=== PATIENT | male | born 1960 | race Caucasian/White ===

== ENCOUNTER → 2018-05-07 | Outpatient (CLI) | payer OTHER ==
--- NOTE | 2018-05-08 17:09 | MR ---
EXAMINATION TYPE: MR lumbar spine wo con DATE OF EXAM: 05/07/2018 COMPARISON: None HISTORY: Low back pain CONTRAST: 0 mL intravenous Gadavist. TECHNIQUE: Multiplanar, multisequence images of the lumbar spine were acquired. FINDINGS: Cord terminates at the L1 level. There is straightening of the lumbar spine in the sagitta l plane. L5-S1: There is loss of disc height to this level. Residual disc bulge has mild to moderate anterior thecal sac flattening. No AP spinal canal stenosis present. Facets are normal. There is moderate righ t and mild to moderate left foraminal stenosis due to the disc bulging. L4-L5: There is loss of disc height is level. Central focal protrusion is present with subligamentous disc extension beyond the L5 endplate. AP spinal canal stenosis is not present. There is mild to mod erate right foraminal stenosis. Mild left foraminal narrowing is present. Endplate changes are presen t compatible with Modic type II degenerative change. L3-L4: Mild loss of disc height is present. There is a small central protrusion with mild anterior th ecal sac compression. No AP spinal canal stenosis is present. Neural foramen are patent. L2-L3: Disc space narrowing is present. Mild disc bulge has mild anterior thecal sac compression. No AP spinal canal stenosis is present. Facet hypertrophy with mild ligamentum flavum laxity has posteri or lateral thecal sac contact. L1-L2: Left paracentral subligamentous disc herniation is present with mild anterior thecal sac compr ession. No AP spinal canal stenosis is present. Neural foramen are patent. T12-L1: No significant disc bulge or disc herniation. No spinal canal stenosis. No foraminal stenos is. Neural foramen are patent. Disc desiccation is present throughout the lumbar spine. IMPRESSION: 1. Small subligamentous disc herniation L1-2 with mild anterior thecal sac compression 2. Small central protrusion L3-4 with mild anterior thecal sac compression. 3. Mild disc bulge L2-3 with mild anterior thecal sac flattening. 4. Mild to moderate bilateral foraminal narrowing L4-5 L5-S1 due to disc bulging discussed above
== END | disposition home or self-care (01) ==
LOC: RADMRIMAIN 20:28
PROVIDERS: ATTEND Family Medicine
DX: M99.73 Connective tissue and disc stenosis of intervertebral foramina of lumbar region (principal); M51.16 Intervertebral disc disorders with radiculopathy, lumbar region
CPT/HCPCS: 72148

== ENCOUNTER → 2018-06-09 | Outpatient (CLI) | payer OTHER ==
[2018-06-08 15:32] VITALS: BMI 25.7
[2018-06-09 08:41] VITALS: BP 166/100; PULSE 58; RESP 16
--- NOTE | 2018-06-10 11:31 | P.PAINCN ---
History of Present Illness - Reason for Consult Consult date: 06/09/18 - History of Present Illness This is the initial consultation visit for this 57 years old male with a chronic history of severe low back pain, he reported that the pain started more than 30 years ago, the pain is constant and increases with any activity, patient had microdiscectomy surgery on his back which did not helped his low back pain. Patient was getting some relief from chiropractics, but limited benefit from, he reported that October of last year , 10 still the pain increased significantly, the pain is severe constant localized in the low back area with radiation to the buttocks bilaterally and into the hips , his right side more than the left side, he denies any motor or sensory deficit he denies any fever or night sweats. Denies any change in the bowel movement or urination. Past Medical History Additional Past Medical History / Comment(s): LOW BACK PAIN, HERNIATED DISCS. History of Any Multi-Drug Resistant Organisms: None Reported Past Surgical History: Back Surgery Additional Past Surgical History / Comment(s): LOWER BACK SURGERY (OVER 30 YRS AGO) Past Anesthesia/Blood Transfusion Reactions: No Reported Reaction Past Psychological History: Anxiety Smoking Status: Never smoker Past Alcohol Use History: None Reported Past Drug Use History: None Reported - Past Family History Mother Family Medical History: Cancer Additional Family Medical History / Comment(s): BREAST CANCER Medications and Allergies Home Medications Medication Instructions Recorded Confirmed Type Lysine [l-Lysine] 500 mg PO DAILY 06/08/18 06/09/18 History Venlafaxine HCl [Effexor XR] 225 mg PO DAILY 06/08/18 06/09/18 History clonazePAM [KlonoPIN] 1 mg PO DAILY 06/08/18 06/09/18 History Lecithin, Soy [Lecithin] 1,200 mg PO DAILY 06/09/18 06/09/18 History Allergies Allergy/AdvReac Type Severity Reaction Status Date / Time No Known Allergies Allergy Verified 06/09/18 08:21 Physical Exam Social history : not smoker , NO ETOH , NO Illegal drugs use . Review of Systems : - Constitutional : no chills , no fever , no night sweats , - Ears : no ear discharge , no change in hearing -Nose, Mouth ,Throat ; no bleeding gums, no sore throat , no epistaxis , -Cardiovascular : Denies chest pain, , no orthopnea , no pal pitation -Respiratory : Denies cough , no dyspnea , no hemoptysis -Gastrointestinal :, no change in bowel habits , no coffee- ground emesis . -Genitourinary : No hematuria , no discharge , no incontinence, -Musculoskeletal : No gait dysfunction , report low back pain , - Neurological : no ataxia , no tremor , no sezure , -Psychatric , no suicidal ideation no hallucination - Endocrine : no cold intolerence , no polyuria , no polydypsia , -Hematologic : no easy bleeding , no easy brusing , -Allergic / immunology : no angioedema , no wheezing ,no allergic rhinitis -Integumentary : no brttle nails , no change hair / nails , no foot/leg ulcers . Physical Examinations : -Constitutional : Cooperative , not in acute distress . -HEENT : nech ; supple , no Lymphadenopathy , no Thyromegaly , :eyes , no icterus, no photophobia . - Respiratory : Chest clear to auscultations Bilaterally , no wheezing . - Cardiovascular : regular rate and rhythem , S1 , S2 , no S3 , no S4. - Gastrointestinal: abdomen soft no tenderness , no organomegally . - Genitourinary : Defferred . -Integumentary : No cellulitis , no ulcers , normal skin turgor , no cyanotic . - neurologic : Cranial nerve II to XII intact , no focal neurological deffecit -psychatric : alert , oriented X 3 , appropriate affect , intact judgment and insight . -Lymphatic : no Lymphadenopathy. - musculoskeltal: abnormal gait Lumber spine moter stegnth lower extremities ,thigh and legs 5/5 Right side , 5/5 Left side deep tendon reflexes : normal Knee Jerk , normal ankle Jerk positive lumber facet Loading Test Range of motion of the lumbar spine Flexion 30 degrees, extension 10 degrees strait leg raising test , negative bilaterally Fabere test positive RT and negative LT . Results Comments: MRI of the lumbar spine= L2-3 lumbar facet arthropathy L4 5 foraminal stenosis, L5-S1 disc bulging with foraminal stenosis Assessment and Plan Plan: Assessment and plan= chronic severe low back pain secondary to multifactorial causes, lumbar degenerative disc disease lumbar foraminal stenosis and lumbar spondylosis with lumbar facet arthropathy , clinically most of the pain is coming from the facetogenic component patient could benefit from diagnostic medial branch block lumbar area L1-2/L2-3/L3 4, benefits positive then we will proceed with a radiofrequency ablation of the median branch PQRS Measure Charge Sheet Measure #130: Documentation of Current Meds in Medical Chart: Patient's medications documented in chart Measure #226: Tobacco Use: Screen & Cessation Intervention: Pt not a tobacco user Measure #111: Pneumonia Vaccination: Pneumococcal vaccine NOT administered or previously given Measure #47: Advance Care Plan: Advance care planning discussed & documented, pt chose/unable to give Measure #412: Opioid Treatment Agreement: No documentation of signed opioid treatment agreement Measure #408: Opioid Therapy Follow-up Evaluation: Patient had NO f/u eval minimum every 3 months during opioid therapy Measure #317: Preventitive Care & Scrn High Bld Press & F/U: Pre-hypertensive or hypertensive BP documented, pt will f/u with PCP Measure #128: Body Mass Index (BMI) Screening & Follow-up: BMI documented ABOVE normal parameters - f/u documented Measure #131: Pain Assessment & Follow-up: Pain positive & plan documented, Follow-up scheduled Measure #431: Unhealthy Alcohol Use Preventative Care & Scrn: Patient not identified as an unhealthy alcohol user PQRS Narrative: Smoking Status Never smoker Do You Want the Pneumonia No Vaccine AT THIS TIME? Blood Pressure 166/100 Pain Intensity [Bilateral 7 Lower Back] Scale Used Numeric (1 - 10) Hx Alcohol Use (MH) No Home Medications: Ambulatory Orders Lysine [l-Lysine] 500 mg PO DAILY 06/08/18 Venlafaxine HCl [Effexor XR] 225 mg PO DAILY 06/08/18 clonazePAM [KlonoPIN] 1 mg PO DAILY 06/08/18 Lecithin, Soy [Lecithin] 1,200 mg PO DAILY 06/09/18
== END | disposition home or self-care (01) ==
LOC: PNWHC3 08:15
PROVIDERS: ATTEND Specialist
DX: G89.29 Other chronic pain (principal); M48.061 Spinal stenosis, lumbar region without neurogenic claudication; M51.36 Other intervertebral disc degeneration, lumbar region; M47.816 Spondylosis without myelopathy or radiculopathy, lumbar region; M46.96 Unspecified inflammatory spondylopathy, lumbar region; Z98.890 Other specified postprocedural states
CPT/HCPCS: 99211

== ENCOUNTER → 2018-06-23 | Day surgery (SDC) | payer OTHER ==
[2018-06-16 12:43] VITALS: BMI 25.4
[~2018-06-23] MED LIST: IV FLUID CONTINUATION 1,000 ML IV ONE; LACTATED RINGERS 1,000 ML IV ONE; LIDOCAINE 1% 20 ML VIAL (10MG/ML) FOR IV START INTRADERMA ONE; SODIUM CHLORIDE 0.9% 500 ML 500 ML IV SCH
[2018-06-23 09:37] VITALS: TEMP 97.9
--- NOTE | 2018-06-23 10:39 | P.PCN ---
Date of Procedure: 06/23/18 Surgeon: Kim Narayan Pathology: none sent Condition: stable Disposition: PACU Description of Procedure: PREOPERATIVE DIAGNOSIS : 1- Lumbar spondylosis with Facet Arthropathy without myelopathy . 2- Lumber degenerative disc disease POSTOPERATIVE DIAGNOSIS: 1- Lumbar spondylosis with Facet Arthropathy without myelopathy . 2- Lumber degenerative disc disease PROCEDURE: Diagnostic bilateral L3 -4 , L4 -5 , and L5-S1 medial branch block under fluoroscopy ANESTHESIA: Local with 1% lidocaine; IV moderate conscious sedation with Versed 2 mg . EBL: Negligible COMPLICATION: None. PROCEDURE INDICATION: Chronic low back pain secondary to Facet arthropathy unresponsive to conservative treatment. PROCEDURE DESCRIPTION: the patient was seen and identified in the preop holding area , risks and benefits and possible complications of the procedure and alternatives were discussed with the patient, and the patient agreed to proceed with the procedure and signed the consent. IV was started and vital signs monitored during the procedure and fluoroscopy was used to maximize the benefit and accuracy of the needle placement, sedation was given to decrease patient anxiety, patient was taken to the procedure room and placed in prone position vital signs monitored. The patient's pain is mostly in the lower back area which corresponds with the lower levels of the facet joints .The patient was brought into the procedure room and placed in prone position. Skin was prepped with Chloraprep and draped in a sterile manner. Lidocaine 1% was used to numb the skin up at the target points that were chosen as follows: at the L5-S1 level which corresponds to the dorsal ramus of L5 the target points were at the superior medial aspect of the sacral ala on each side of the spine on the AP view of fluoroscopy, and for the L3 and L4 medial branches the target points were the connection between the transverse process and the superior to go process of L4 and L5 respectively on the oblique views of fluoroscopy. I used 22-gauge 3-1/2 inch Quincke spinal needles for this procedure and after contacting bone at the target points mentioned above I injected 1 mL of a mixture of Kenalog 40 mg +5 MLS of Marcaine 0.5% PF . Patient tolerated procedure well. At the end of the procedure the needles removed and a bandage applied after the skin was cleaned the cleaning solution. patient was then taken to the recovery room in stable condition and monitored in the recovery room for 20-30 minutes and discharged home in stable condition after discharge criteria met .
[2018-06-23 11:01] VITALS: BP 154/98; PULSE 85; RESP 16
--- NOTE | 2018-06-23 11:45 | FL ---
EXAMINATION TYPE: FL guided pain mgmt statistic DATE OF EXAM: 06/23/2018 FLUOROSCOPY Fluoroscopy time of 10 seconds was used during bilateral lumbar facet block and steroid injection. 4 image/s document/s the procedure.
== END ==
LOC: ORPAIN 09:11
PROVIDERS: ATTEND Anesthesiology
DX: G89.29 Other chronic pain (principal); M47.816 Spondylosis without myelopathy or radiculopathy, lumbar region
CPT/HCPCS: 64493; 64494; 64495; J2250; J3301

== ENCOUNTER 2018-07-07 09:12 | Day surgery (SDC) | payer OTHER ==
[2018-07-02 09:54] VITALS: BMI 25.4
[~2018-07-07 09:12] MED LIST changes: -IV FLUID CONTINUATION 1,000 ML IV ONE; -LACTATED RINGERS 1,000 ML IV ONE; +LACTATED RINGERS 1,000 ML IV SCH; -LIDOCAINE 1% 20 ML VIAL (10MG/ML) FOR IV START INTRADERMA ONE; -SODIUM CHLORIDE 0.9% 500 ML 500 ML IV SCH
[2018-07-07 09:52] VITALS: RESP 16; TEMP 97.2
--- NOTE | 2018-07-07 10:30 | P.PCN ---
Date of Procedure: 07/07/18 Surgeon: Kim Narayan Pathology: none sent Condition: stable Disposition: PACU Description of Procedure: PREOPERATIVE DIAGNOSIS : 1- Lumbar spondylosis with Facet Arthropathy without myelopathy . 2- Lumber degenerative disc disease POSTOPERATIVE DIAGNOSIS: 1- Lumbar spondylosis with Facet Arthropathy without myelopathy . 2- Lumber degenerative disc disease PROCEDURE: Diagnostic bilateral L3 -4 , L4 -5 , and L5-S1 medial branch block under fluoroscopy ANESTHESIA: Local with 1% lidocaine; IV moderate conscious sedation with Versed 2 mg . EBL: Negligible COMPLICATION: None. PROCEDURE INDICATION: Chronic low back pain secondary to Facet arthropathy unresponsive to conservative treatment. PROCEDURE DESCRIPTION: the patient was seen and identified in the preop holding area , risks and benefits and possible complications of the procedure and alternatives were discussed with the patient, and the patient agreed to proceed with the procedure and signed the consent. IV was started and vital signs monitored during the procedure and fluoroscopy was used to maximize the benefit and accuracy of the needle placement, sedation was given to decrease patient anxiety, patient was taken to the procedure room and placed in prone position vital signs monitored. The patient's pain is mostly in the lower back area which corresponds with the lower levels of the facet joints .The patient was brought into the procedure room and placed in prone position. Skin was prepped with Chloraprep and draped in a sterile manner. Lidocaine 1% was used to numb the skin up at the target points that were chosen as follows: at the L5-S1 level which corresponds to the dorsal ramus of L5 the target points were at the superior medial aspect of the sacral ala on each side of the spine on the AP view of fluoroscopy, and for the L3 and L4 medial branches the target points were the connection between the transverse process and the superior to go process of L4 and L5 respectively on the oblique views of fluoroscopy. I used 22-gauge 3-1/2 inch Quincke spinal needles for this procedure and after contacting bone at the target points mentioned above I injected 1 mL of a mixture of Kenalog 40 mg +5 MLS of Marcaine 0.5% PF . Patient tolerated procedure well. At the end of the procedure the needles removed and a bandage applied after the skin was cleaned the cleaning solution. patient was then taken to the recovery room in stable condition and monitored in the recovery room for 20-30 minutes and discharged home in stable condition after discharge criteria met .
[2018-07-07] MEDS ORDERED: IV FLUID CONTINUATION 1,000 ML IV ONE ×2 (10:36)
[2018-07-07 10:56] VITALS: BP 156/90; PULSE 69
--- NOTE | 2018-07-07 11:20 | FL ---
EXAMINATION TYPE: FL guided pain mgmt statistic DATE OF EXAM: 07/07/2018 CLINICAL HISTORY: Bilateral facet block for back pain TECHNIQUE: Fluoroscopy. COMPARISON: None. FINDINGS: Fluoroscopic guidance was provided during procedure performed by Dr. Narayan. A total of 9 seconds of fluoroscopic time was utilized during the procedure and 3 spot images was acquired demon strating localization of the lumbar spine multiple levels. IMPRESSION: As Above.
== END 2018-07-07 11:06 | disposition home or self-care (01) ==
LOC: ORPAIN 09:12
PROVIDERS: ATTEND Anesthesiology
DX: M51.36 Other intervertebral disc degeneration, lumbar region (principal); M48.061 Spinal stenosis, lumbar region without neurogenic claudication; M47.816 Spondylosis without myelopathy or radiculopathy, lumbar region; G89.29 Other chronic pain; F41.9 Anxiety disorder, unspecified; Z79.899 Other long term (current) drug therapy
CPT/HCPCS: 64493; 64494; 64495; J2250; J3301; J3010; 99152

== ENCOUNTER → 2018-07-22 | Outpatient (CLI) | payer OTHER ==
[2018-07-22 12:05] VITALS: BP 160/101; PULSE 84; RESP 16
--- NOTE | 2018-07-22 12:23 | P.PAINPG ---
Subjective Progress Note Date: 07/22/18 This is a follow-up visit for this 57-year-old old male with a chronic history of severe low back pain, he is diagnosed with lumbar degenerative disc disease and lumbar spondylosis with lumbar facet arthropathy, recently we have done diagnostic medial branch block lumbar area at L3 4, L4 5, and L5-S1 x2 , patient reported that his pain was 7/10 before each block , and it dropped to 0/10 after each block, and he is looking forward to have radiofrequency ablation of the medial branch lumbar area, he denies any motor or sensory deficit, he denies any fever or night sweats, and no change in the bowel movement or urination Objective - Vital Signs Vital signs: Vital Signs Temp Pulse 84 07/22/18 11:54 Resp 16 07/22/18 11:54 BP 160/101 07/22/18 11:54 Pulse Ox 97 07/22/18 11:54 Intake & Output 07/21/18 07/22/18 07/22/18 18:59 06:59 18:59 Weight 86.183 kg - Exam Physical Examinations : -Constitutiona : Cooperative , not in acute distress . -HEENT : nech ; supple , no Lymphadenopathy , normal thyroid size . eyes : no ptosis , no icterus, no photophobia . Lumbar spine moter stegnth lower extremities ,thigh and legs 5/5 Right side , 5/5 Left side deep tendon reflexes : normal Knee Jerk , normal ankle Jerk positive lumber facet Loading Test Range of motion of the lumbar spine Flexion 30 degrees, extension 10 degrees Assessment and Plan Plan: Assessment and plan= chronic low back pain secondary to lumbar degenerative disc disease , lumbar spondylosis with lumbar facet arthropathy . Patient had positive results after the diagnostic medial branch block lumbar area. He will be scheduled to have radiofrequency ablation of the medial branch lumbar area L34, L45 ,L5S1 redo the right side first and left-sided later Time with Patient: Less than 30 PQRS Measure Charge Sheet Measure #130: Documentation of Current Meds in Medical Chart: Patient's medications documented in chart Measure #226: Tobacco Use: Screen & Cessation Intervention: Pt not a tobacco user Measure #111: Pneumonia Vaccination: Pneumococcal vaccine NOT administered or previously given Measure #47: Advance Care Plan: Advance care planning discussed & documented, pt chose/unable to give Measure #412: Opioid Treatment Agreement: No documentation of signed opioid treatment agreement Measure #408: Opioid Therapy Follow-up Evaluation: Patient had NO f/u eval minimum every 3 months during opioid therapy Measure #317: Preventitive Care & Scrn High Bld Press & F/U: Pre-hypertensive or hypertensive BP documented, pt will f/u with PCP Measure #128: Body Mass Index (BMI) Screening & Follow-up: BMI documented within normal parameters Measure #131: Pain Assessment & Follow-up: Pain positive & plan documented, Follow-up scheduled Measure #431: Unhealthy Alcohol Use Preventative Care & Scrn: Patient not identified as an unhealthy alcohol user PQRS Narrative: Smoking Status Never smoker Do You Want the Pneumonia No Vaccine AT THIS TIME? Blood Pressure 160/101 Pain Intensity [Bilateral 4 Lower Back] Scale Used Numeric (1 - 10) Hx Alcohol Use (MH) No Home Medications: Ambulatory Orders Lysine [l-Lysine] 500 mg PO DAILY 06/08/18 Venlafaxine HCl [Effexor XR] 225 mg PO QAM 06/08/18 clonazePAM [KlonoPIN] 1 mg PO QAM 06/08/18 Lecithin, Soy [Lecithin] 1,200 mg PO DAILY 06/09/18 Controlled Substance Measures - Controlled Substance Measures Is patient prescribed a controlled substance at discharge?: No
== END | disposition home or self-care (01) ==
LOC: PNWHC3 11:27
PROVIDERS: ATTEND Specialist
DX: G89.29 Other chronic pain (principal); M51.36 Other intervertebral disc degeneration, lumbar region; M47.816 Spondylosis without myelopathy or radiculopathy, lumbar region; M46.86 Other specified inflammatory spondylopathies, lumbar region; Z79.899 Other long term (current) drug therapy
CPT/HCPCS: 99211

== ENCOUNTER 2018-08-02 07:56 | Day surgery (SDC) | payer OTHER ==
[2018-07-28 16:10] VITALS: BMI 25.0
[2018-08-02 08:39] VITALS: TEMP 97.7
[2018-08-02] MEDS ORDERED: LIDOCAINE 1% 20 ML VIAL (10MG/ML) FOR IV START INTRADERMA ONE (08:48)
--- NOTE | 2018-08-02 09:42 | P.PCN ---
Date of Procedure: 08/02/18 Procedure(s) Performed: PREOPERATIVE DIAGNOSIS: 1-Lumbar Spondylosis with Facet Arthropathy without myelopathy. 2- Lumber degenerative disc disease. POSTOPERATIVE DIAGNOSIS: 1- Lumbar Spondylosis with Facet Arthropathy without myelopathy. 2- Lumber degenerative disc disease. PROCEDURES : Right Radiofrequency thermocoagulation, L3-L4, L4-L5, and L5-S1 medial branch, with fluoroscopic guidance ANESTHESIA: Moderate sedation with intravenous versed 2 mg and fentaneyl 50 mcg, and local infiltration with Ropivacaine 0.5 % . EBL: Minimal PROCEDURE INDICATION: The patient with low back pain secondary to lumbar facet arthropathy who had more than 50% relief of her pain with previous diagnostic lumbar medial branch block with bupivacaine. PROCEDURE DESCRIPTION / TECHNIQUE: The patient was seen and identified in the preoperative area. Risks, benefits, complications, including but not limited to risk of infection ,bleeding , allergic reactions to the medications and no complete pain releife , and alternatives were discussed with the patient, the patient agreed to proceed with the procedure and signed the consent. IV was started. Vital signs remained stable throughout the procedure. Patient was taken to the OR and time out was completed. The patient was placed i n the prone position on the procedure table. The lumber area was prepped and draped in the usual sterile fashion. . Vital signs were closely monitored during the procedure .IV sedation was used during the procedure to decrease patients anxiety. Using AP and then oblique fluoroscopy, the ``eye of the Keon dog corresponding to the connection between the superior and transverse articular processes of right L3, L4, and L5 were identified, marked, and localized with 1% lidocaine. Subsequently, a 18 -kf radiofrequency cannula with a 10- mm active tip was advanced guided by fluoroscopy to each of the``eyes of the Keon dog at right L3, L4, and L5. Each site then underwent sensory testing at 50 Hz and 0 to 1 volt and motor testing at 2.5 Hz and 0 to 3 volt with local stimulation, but no radicular symptoms down the legs. Thereafter the right L3-4, L4-5, and L5-S1 sites underwent radiofrequency thermocoagulation at 80 degrees celsius for 90 seconds after injecting 0.5 ml of PF Ropivacaine 1ml, then after the thermocoagulation done , 1 ml of the block solution containing Depo-Medrol 40 mg and 3 ml of Ropivacaine 0.5% was injected at the right L3-4 , L4-5 , and L5-S1, levels after negative aspiration of CSF and blood and with no paresthesias. Cannulas were retracted while injecting lidocaine 1% until the needle is out. At the end of the procedure, the skin was cleansed and bandages were applied. COMPLICATIONS: No acute complications. DISPOSITION / PLANS: The patient was placed in a supine position and transferred to the recovery area in a stable condition for observation and was discharged from the recovery room after meeting discharge criteria. Home discharge instructions given to the patient by the staff. The patient was reexamined prior to discharge. The patient will schedule a follow up in the clinic in 2-4 weeks.
[2018-08-02] MEDS ORDERED: IV FLUID CONTINUATION 800 ML IV ONE (09:47)
[2018-08-02 09:50] VITALS: RESP 18
--- NOTE | 2018-08-02 09:58 | FL ---
EXAMINATION TYPE: FL guided pain mgmt statistic DATE OF EXAM: 08/02/2018 HISTORY: Pain 11sec fluoro time,3 images scanned
[2018-08-02 10:15] VITALS: BP 155/103
[2018-08-02 10:16] VITALS: PULSE 73
== END 2018-08-02 10:20 | disposition home or self-care (01) ==
LOC: ORPAIN 07:56
PROVIDERS: ATTEND Specialist
DX: M47.816 Spondylosis without myelopathy or radiculopathy, lumbar region (principal); M51.36 Other intervertebral disc degeneration, lumbar region
CPT/HCPCS: 64635; 64636 ×2; J2250; J1030; J3010; 99152

== ENCOUNTER 2018-08-16 09:15 | Day surgery (SDC) | payer OTHER ==
[2018-08-11 12:46] VITALS: BMI 25.0
[2018-08-16 10:01] VITALS: RESP 16; TEMP 97.2
[2018-08-16] MEDS ORDERED: LIDOCAINE 1% 20 ML VIAL (10MG/ML) FOR IV START INTRADERMA ONE (10:01)
--- NOTE | 2018-08-16 10:59 | P.PCN ---
Date of Procedure: 08/16/18 Procedure(s) Performed: PREOPERATIVE DIAGNOSIS: 1-Lumbar Spondylosis with Facet Arthropathy without myelopathy. 2- Lumber degenerative disc disease. POSTOPERATIVE DIAGNOSIS: 1- Lumbar Spondylosis with Facet Arthropathy without myelopathy. 2- Lumber degenerative disc disease. PROCEDURES : Left Radiofrequency thermocoagulation, L3-L4, L4-L5, and L5-S1 medial branch, with fluoroscopic guidance ANESTHESIA: Moderate sedation with intravenous versed 1 mg and fentaneyl 50 mcg, and local infiltration with Ropivacaine 0.5 % . EBL: Minimal PROCEDURE INDICATION: The patient with low back pain secondary to lumbar facet arthropathy who had more than 50% relief of her pain with previous diagnostic lumbar medial branch block with bupivacaine. PROCEDURE DESCRIPTION / TECHNIQUE: The patient was seen and identified in the preoperative area. Risks, benefits, complications, including but not limited to risk of infection ,bleeding , allergic reactions to the medications and no complete pain releife , and alternatives were discussed with the patient, the patient agreed to proceed with the procedure and signed the consent. IV was started. Vital signs remained stable throughout the procedure. Patient was taken to the OR and time out was completed. The patient was placed i n the prone position on the procedure table. The lumber area was prepped and draped in the usual sterile fashion. . Vital signs were closely monitored during the procedure .IV sedation was used during the procedure to decrease patients anxiety. Using AP and then oblique fluoroscopy, the ``eye of the Keon dog corresponding to the connection between the superior and transverse articular processes of Left L3, L4, and L5 were identified, marked, and localized with 1% lidocaine. Subsequently, a 18 [id number] radiofrequency cannula with a 10-mm active tip was advanced guided by fluoroscopy to each of the``eyes of the Keon dog at Left L3, L4, and L5. Each site then underwent sensory testing at 50 Hz and 0 to 1 volt and motor testing at 2.5 Hz and 0 to 3 volt with local stimulation, but no radicular symptoms down the legs. Thereafter the Left L3-4, L4-5, and L5-S1 sites underwent radiofrequency thermocoagulation at 80 degrees celsius for 90 seconds after injecting 0.5 ml of PF Ropivacaine 1ml, then after the thermocoagulation done , 1 ml of the block solution containing Depo-Medrol 40 mg and 3 ml of Ropivacaine 0.5% was injected at the Left L3-4 , L4-5 , and L5-S1, levels after negative aspiration of CSF and blood and with no paresthesias. Cannulas were retracted while injecting lidocaine 1% until the needle is out. At the end of the procedure, the skin was cleansed and bandages were applied. COMPLICATIONS: No acute complications. DISPOSITION / PLANS: The patient was placed in a supine position and transferred to the recovery area in a stable condition for observation and was discharged from the recovery room after meeting discharge criteria. Home discharge instructions given to the patient by the staff. The patient was reexamined prior to discharge. The patient will schedule a follow up in the clinic in 2-4 weeks.
--- NOTE | 2018-08-16 11:09 | FL ---
EXAMINATION TYPE: FL guided pain mgmt statistic DATE OF EXAM: 08/16/2018 HISTORY: Flouroscopy time 12 seconds of fluoroscopy provided. IMPRESSION: 1. Fluoroscopy time.
[2018-08-16 11:19] VITALS: BP 139/95; PULSE 73
[2018-08-16] MEDS ORDERED: IV FLUID CONTINUATION 1,000 ML IV ONE (11:21)
== END 2018-08-16 11:21 | disposition home or self-care (01) ==
LOC: ORPAIN 09:15
PROVIDERS: ATTEND Specialist
DX: M47.816 Spondylosis without myelopathy or radiculopathy, lumbar region (principal); M51.36 Other intervertebral disc degeneration, lumbar region
CPT/HCPCS: 64635; 64636 ×2; J2250; J1030; J3010; 99152

== ENCOUNTER → 2018-09-02 | Outpatient (CLI) | payer OTHER ==
[2018-09-02 14:11] VITALS: BP 136/91; PULSE 75; RESP 18
--- NOTE | 2018-09-02 15:04 | P.PN ---
Subjective Progress Note Date: 09/02/18 Sid is a 50-year-old gentleman presenting today for follow-up. He is status post radiofrequency ablation of the lumbar spine on both sides. He reports a left side is completely better. He also has pain on the right side of his low back and 1 point tender area where he feels is not improved. He sometimes feels that he has radicular symptoms down his leg associated with a burning painful sensation down to the heel of his foot. He feels that this pain is an area that is bothering him despite having the ablation. He reports he is very happy with the ablation this far but this part still bothering him and he like a resolution. He also complains of a pain in the right upper mid back associated with right arm pain. He's had a history of right arm pain which radiates from his elbow into his hand along the dorsal aspect. Pain is in the radial nerve distribution. He reports that history this pain was improved after having a couple injections in the elbow about 7 years ago. He has not been exercising because he was worried about hurting himself after the ablation but traditionally works out on a regular basis. Objective - Vital Signs Vital signs: Vital Signs Temp Pulse 75 09/02/18 13:57 Resp 18 09/02/18 13:57 BP 136/91 09/02/18 13:57 Pulse Ox 99 09/02/18 13:57 Intake & Output 09/01/18 09/02/18 09/02/18 18:59 06:59 18:59 Weight 84.822 kg - Exam General: Awake and alert oriented 3 no distress Respiratory exam: No audible wheezing no accessory muscle usage Cardiovascular exam: regular rate, palpable bilateral pulses, no lower extremity edema Abdominal exam: No distention nontender to palpation Cervical spine: Normal alignment, Spurling's negative, facet loading negative, Telegraph Lineman strength is 5/5, carr negative Right arm: Patient has tenderness palpation over the brachial radialis and pronator muscles. There is positive to no sign over the radial nerve. Wrist flexor and wrist extensor muscles are normal in do not elicit pain over the medial or lateral compartments. Lumbar spine: Loss of lumbar lordosis, normal alignment, tender to palpation over bilateral paraspinal muscles, facet loading is positive on the right side. Straight leg raise is positive on the right side. He has point tenderness over the lumbar spine. His gluteal muscles are atrophied bilaterally. Paraspinal muscles have good muscle bulk. There is no weakness in the lumbar hip flexors. Quadriceps and hamstring strength is adequate. Sacroiliac joints: Nontender to palpation, WILEY is negative, Gaenselon negative Neuro exam: Normal sensation in bilateral upper extremities, deep tendon reflexes are 2+ bilateral upper extremities. His right patellar reflex is 1+ compared to 2+ on the left. Achilles reflexes 2+ bilateral. 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 He would like to move forward with lumbar epidural steroid injection at the L4-L5 level and see if that improves that pain going down the leg as well as the pain in the right side of his low back. Also discussed potentially performing a repeat of the radiofrequency ablation at that one level where he is having pain seems that improves his pain. I've also discussed with him specific exercises to increase his gluteal muscle strength as well as his upper back rhomboid muscle bulk. We will also discussed that we may potentially do a radial nerve injection at the elbow at some point in the future I like to hold off on that due to the steroid load. I've encouraged him to go back to exercising on a regular basis and avoid only activity that causes severe pain
== END ==
LOC: PNWHC3 13:37
PROVIDERS: ATTEND Hospitalist
DX: M47.26 Other spondylosis with radiculopathy, lumbar region (principal); M25.821 Other specified joint disorders, right elbow; Z79.891 Long term (current) use of opiate analgesic
CPT/HCPCS: 99211

== ENCOUNTER 2018-09-08 08:49 | Day surgery (SDC) | payer OTHER ==
[2018-09-07 08:46] VITALS: BMI 25.0
[2018-09-08 09:05] VITALS: TEMP 97.7
--- NOTE | 2018-09-08 09:24 | P.PCN ---
Date of Procedure: 09/08/18 Surgeon: Kim Narayan Pathology: none sent Condition: stable Disposition: PACU Description of Procedure: PREOPERATIVE DIAGNOSIS: 1-Lumbar radiculopathy 2- Lumber Degenerative Disc Diseases. POSTOPERATIVE DIAGNOSIS: 1-Lumbar radiculopathy. 2-Lumbar Degenerative Disc Diseases PROCEDURE 1. Lumbar epidural steroid injection under fluoroscopic guidance at the L5-S1 level in the right paramedian approach 2. Lumbar epidurogram. ANESTHESIA: Local with 1% lidocaine; and IV moderate conscious sedation with Versed and fentanyl EBL: Minimal PROCEDURE INDICATION: The patient with low back pain and radiculitis symptoms unresponsive to conservative treatment. Fluoroscopy was used to optimize visualization of the needle placement and to maximize safety. PROCEDURE DESCRIPTION / TECHNIQUE: The patient was seen and identified in the preoperative area. Risks, benefits, complications including but not limited to infections ,bleeding ,allergic reaction to the medications ,nerve damage and not complete pain relief , and alternatives were discussed with the patient. The patient agreed to proceed with the procedure and signed the consent. IV was started, and vital signs were stable. Patient was taken to the OR and time out was completed. The patient was placed in the prone position on procedure table and a pillow was placed under the abdomen to reduce lumbar lordosis. The lumbosacral area was prepped and draped in the usual sterile fashion with ChloraPrep.Patient was closely monitored during the procedure. Conscious sedation was used during the procedure to decrease patients anxiety. Vital signs were monitered during the entire procedure. Using anterior-posterior fluoroscopy, the 5-S1 interlaminar space was identified and the skin over this site was marked and then infiltrated with 1% lidocaine subcutaneously. Subsequently, a 20-gauge Tuohy epidural needle was inserted and advanced toward the epidural space using the Loss of resistance to air technique and guided by AP and lateral fluoroscopy. The correct needle position in the epidural space was verified with the injection of 1 mL of the water soluble contrast dye Omnipaque 180 contrast and observing an excellent epidurogram with the epidural spread of the dye, after negative aspiration for blood and CSF and in the absence of paresthesias. Again after negative aspiration, a 8 ml mixture containing 80 mg of Kenalog and 5 ml of preservative free Normal Saline, and 2 ml of preservative free ropivacaine 0.5% solution was injected and a washout of epidurogram was seen. Needle was withdrawn intact, skin was cleansed, and bandages were applied. patient tolerated procedure well and was transferred to PACU in stable condition. COMPLICATIONS: None
[2018-09-08] MEDS ORDERED: IV FLUID CONTINUATION 1,000 ML IV ONE ×2 (09:31)
[2018-09-08 09:44] VITALS: RESP 18
[2018-09-08 09:58] VITALS: BP 133/72; PULSE 72
--- NOTE | 2018-09-08 12:11 | FL ---
EXAMINATION TYPE: FL guided pain mgmt statistic DATE OF EXAM: 09/08/2018 CLINICAL HISTORY: Low back pain. TECHNIQUE: Fluoroscopy. COMPARISON: None. FINDINGS: Fluoroscopic guidance was provided during pain relief procedure performed by Dr. Narayan . A total of 2 seconds of fluoroscopic time was utilized during the procedure and 1 spot images are a cquired. Images acquired shows needle localization of the lumbosacral junction. IMPRESSION: As Above.
== END 2018-09-08 10:01 | disposition home or self-care (01) ==
LOC: ORPAIN 08:49
PROVIDERS: ATTEND Anesthesiology
DX: M51.16 Intervertebral disc disorders with radiculopathy, lumbar region (principal)
CPT/HCPCS: 62323

== ENCOUNTER → 2018-10-12 | Outpatient (CLI) | payer OTHER ==
[2018-10-12 13:55] VITALS: BP 121/78; PULSE 77; RESP 16
--- NOTE | 2018-10-12 15:19 | P.PAINPG ---
Subjective Progress Note Date: 10/12/18 Sid is a 58-year-old gentleman presenting today for follow-up. He is status post L5-S1 epidural steroid injections done on 09/08/2018 and 10-15. He reports that his pain is 70% improved from prior to injections. He is able to function more following these injections. He reports that his pain level is down to about 3-4 on 10. Review of systems is negative for new numbness, weakness, tingling, bowel or bladder incontinence, fevers, chills, night sweats, chest pain, shortness of breath, stroke like symptoms. Objective - Vital Signs Vital signs: Reviewed in EMR - Exam GENERAL: Well appearing, in no acute distress PSYCH: Mood and affect is appropriate. Awake, alert, and oriented SKIN: Skin color, texture, turgor normal, no rashes or lesions HEENT: Normocephalic, atraumatic. EOM intact CV: No pedal edema RESP: Respirations are unlabored, no audible wheezing GI: Abdomen non-distended MUSCULOSKELETAL: Bilateral upper and lower extremity strength is normal and symmetric. No atrophy or tone abnormalities are noted. Lumbar spine: Straight leg raising in the sitting position is negative for radicular pain. No pain to palpation over the lumbar spine and paraspinous muscles. Negative for pain with facet loading and back extension/rotation. Normal range of motion without pain reproduction Buttocks: No pain to palpation over the PSIS, sacroiliac joint maneuvers are negative for pain. Extremities: Peripheral joint ROM is full and pain free without obvious instability or laxity in all four extremities. No edema or skin discolorations noted. Gait: Gait is normal NEUR: Bilateral lower extremity coordination and muscle stretch reflexes are physiologic and symmetric. Negative clonus bilaterally. No loss of sensation is noted. Assessment and Plan Assessment: #1 lumbar spondylosis without myelopathy #2 lumbar radiculopathy Plan: Patient reports 70% benefit from epidural steroid injections. At this point, no need for further procedures. Patient was instructed to continue home exercise program focusing on lumbar strengthening, stretching, core strengthening. A printout of exercises was provided to the patient. Patient was instructed to take Tylenol 500-1,000 mg up to 3 times a day when necessary, he was instructed to take 1 dose 30 minutes prior to any scheduled rigorous activity. Follow-up: When necessary Objective - Vital Signs Vital signs: Vital Signs Temp Pulse 77 10/12/18 13:30 Resp 16 10/12/18 13:30 BP 121/78 10/12/18 13:30 Pulse Ox 100 10/12/18 13:30 Intake & Output 10/11/18 10/12/18 10/12/18 18:59 06:59 18:59 Weight 83.915 kg PQRS Measure Charge Sheet Measure #130: Documentation of Current Meds in Medical Chart: Patient's medications documented in chart Measure #226: Tobacco Use: Screen & Cessation Intervention: Pt not a tobacco user Measure #111: Pneumonia Vaccination: Pneumococcal vaccine NOT administered or previously given Measure #47: Advance Care Plan: Advance care planning discussed & documented, pt chose/unable to give Measure #412: Opioid Treatment Agreement: No documentation of signed opioid treatment agreement Measure #317: Preventitive Care & Scrn High Bld Press & F/U: Normal blood pressure, f/u not required Measure #128: Body Mass Index (BMI) Screening & Follow-up: BMI documented within normal parameters Measure #131: Pain Assessment & Follow-up: Pain positive & plan documented, Follow-up PRN Measure #431: Unhealthy Alcohol Use Preventative Care & Scrn: Patient not identified as an unhealthy alcohol user PQRS Narrative: Smoking Status Never smoker Blood Pressure 121/78 Pain Intensity [Bilateral 2 Lower Back] Scale Used Numeric (1 - 10) Hx Alcohol Use (MH) No Home Medications: Ambulatory Orders Lysine [l-Lysine] 500 mg PO DAILY 06/08/18 Venlafaxine HCl [Effexor XR] 225 mg PO QAM 06/08/18 clonazePAM [KlonoPIN] 1 mg PO QAM 06/08/18 Lecithin, Soy [Lecithin] 1,200 mg PO DAILY 06/09/18 Lisinopril [Zestril] 5 mg PO DAILY 08/16/18 Controlled Substance Measures - Controlled Substance Measures Is patient prescribed a controlled substance at discharge?: No
== END | disposition home or self-care (01) ==
LOC: PNWHC3 13:05
PROVIDERS: ATTEND Anesthesiology
DX: M47.22 Other spondylosis with radiculopathy, cervical region (principal); Z79.899 Other long term (current) drug therapy
CPT/HCPCS: 99211

== ENCOUNTER → 2018-10-28 | Outpatient (CLI) | payer OTHER ==
--- NOTE | 2018-10-28 11:54 | P.PN ---
Subjective Progress Note Date: 10/28/18 This is a 58-year-old gentleman with history of lower back pain with radiation to the lower extremities. The patient had lumbar medial branch RFA on both sides previously and lately and he received 2 epidural steroid injection which helped his legs pain significantly. The patient used to have more pain in the right leg than the left one but recently he injured his back again at work and his pain is more now than the left leg than the right one. The pain starts in the lower back area and radiates all the way down to the left heel however he denies any numbness or tingling in the left leg and also he denies any leg weakness or bowel or bladder dysfunction. The patient has been using Tylenol for his pain. The pain continued to be severe for about one week but it started to get better yesterday. Today, pt denies new-onset weakness, bowel/bladder incontinence, or any other signs or symptoms of cauda equina syndrome. There are no signs of acute intoxication, and no indications of medication diversion or overuse. In addition to above, 13-point review of systems is also negative for chest pain, shortness of breath, changes in vision, changes in hearing, new onset weakness, abdominal pain, diarrhea, extreme fatigue, malaise, fever, skin changes, homicidal or suicidal ideation, or bowel or bladder incontinence. Vital Signs: Reviewed in EMR Gen: AAOx3, NAD HEENT: PERRLA,hearing grossly normal Pulm: resp unlabored,CTA Heart:S1,S2, No Mur Neck: supple, trachea midline Neuro exam of the lower extremities: Decreased left knee reflex compared to the right one and absent ankle reflexes bilaterally. Normal muscle strength bilaterally. Straight leg raising test: Negative bilaterally Freddie's test: Range of motion of the lumbar spine: Facet loading test: Tenderness in the paravertebral musculature: Neuro: CN II-XII grossly intact, Imaging: Reviewed in EMR/chart Assessment: Lumbar spondylosis without myelopathy Lumbar radiculopathy due to disc herniation Plan: 1. Explanation: Opioid and psychological risk scores were reviewed. Diagnoses, prognoses, and multiple treatment options including but not limited to physical therapy, interventional therapies, adjuvant medical therapies, narcotic medication therapies, and surgery were discussed with the patient and all questions were answered to the patient's satisfaction. 2. Opioid agreement: Opioids are not prescribed 3. Counseling: The patient was counseled extensively on SMOKING CESSATION, BODY MASS INDEX, EXERCISE. Specifically, the patient was instructed regarding the importance of smoking cessation, obesity, and exercise in the context of both chronic pain and overall health. 4. Procedures: Scheduled for the third and last lumbar epidural steroid injection at the L4 5 level on the left paramedian approach under fluoroscopic guidance 5. Consultations: None 6. Investigations: None 7. Medications: None 8. Disposition: Return to the above-mentioned procedure as soon as possible 9. Maps were reviewed and were appropriate. PQRS measures: 1-Patient's medications are documented in the chart. 2-Tobacco use is negative, counseling given 3-Patient has not had a pneumococcal vaccine. 4-Advanced care planning discussed, patient unable to give 5-Opioid contract signed with the patient. 6-Pain positive, follow-up visit or procedure scheduled 7-Patient's blood pressure measured and documented within normal limits. The patient will follow up with his primary care physician. 8-Patient's weight was measured, and body mass index ABOVE the normal limits, and counseling was done. Patient instructed to follow up with PCP. 9-Patient WAS NOT identified as an unhealthy alcohol user. C Objective - Vital Signs Vital signs: Vital Signs Temp Pulse 74 10/28/18 11:30 Resp 16 10/28/18 11:30 BP 103/71 10/28/18 11:30 Pulse Ox Intake & Output 10/27/18 10/28/18 10/28/18 18:59 06:59 18:59 Weight 83.915 kg
== END | disposition home or self-care (01) ==
CPT/HCPCS: 99211

== ENCOUNTER 2018-11-08 07:28 | Day surgery (SDC) | payer OTHER ==
[2018-11-05 11:48] VITALS: BMI 24.4
[2018-11-08 07:57] VITALS: RESP 18; TEMP 97.5
[2018-11-08] MEDS ORDERED: LIDOCAINE 1% 20 ML VIAL (10MG/ML) FOR IV START INTRADERMA ONE (08:06)
--- NOTE | 2018-11-08 09:05 | P.PCN ---
Date of Procedure: 11/08/18 Procedure(s) Performed: PREOPERATIVE DIAGNOSIS: 1- Lumbar radiculopathy, Lumbar Degenerative Disc Diseases 2-Lumbar spondylosis with Facet arthropathy without myelopathy POSTOPERATIVE DIAGNOSIS: 1-Lumber Degenerative Disc Diseases 2-Lumbar spondylosis with Facet arthropathy without myelopathy PROCEDURE 1. Lumbar epidural steroid injection under fluoroscopic guidance at the L4-5 level using a left paramedian approach 2. Lumbar epidurogram. ANESTHESIA: Local with 1% lidocaine 3 ml, moderate sedation with intravenous Versed and fentanyl Fluoroscopy was used for the procedure and images were saved in the radiology portion of the chart. EBL: Minimal PROCEDURE INDICATION: The patient with low back pain and radiculitis symptoms unresponsive to conservative treatment. Fluoroscopy was used to optimize visualization of the needle placement and to maximize safety. PROCEDURE DESCRIPTION / TECHNIQUE: The patient was seen and identified in the preoperative area. Risks, benefits, complications including but not limited to infections ,bleeding ,allergic reaction to the medications ,nerve damage and incomplete pain releif , and alternatives were discussed with the patient. The patient agreed to proceed with the procedure and signed the consent. IV was started, and vital signs were stable. Patient was taken to the OR and time out was completed. The patient was placed in the prone position on procedure table and a pillow was placed under the abdomen to reduce lumbar lordosis. The lumbosacral area was prepped and draped in the usual sterile fashion. Vitals were closely monitored during the procedure. Conscious sedation was used during the procedure to decrease patients anxiety. Using anterior-posterior fluoroscopy, the L4-5 interlaminar space was identified and the skin over this site was marked and then infiltrated with 1% lidocaine subcutaneously. Subsequently, a 20-gauge 3.5" Tuohy epidural needle was inserted and advanced toward the epidural space using the loss of resistance technique and guided by AP and lateral/ oblique fluoroscopy. The correct needle position in the epidural space was verified with the injection of 2 mL of the water soluble contrast dye Isovue 200 contrast under live fluoroscopy, observing an excellent epidurogram. Then, after negative aspiration for blood and CSF and in the absence of paresthesias, a 5 ml mixture containing 80 mg of Depo-medrol , 3 ml of preservative free Normal Saline, and 1 ml of preservative free lidocaine 1% solution was injected and a washout epidurogram was seen. Needle was withdrawn intact, skin was cleansed, and bandages were applied. COMPLICATIONS: None DISPOSITION / PLANS: The patient was placed in a supine position and transferred to the recovery area in a stable condition for observation. There was no evidence of lower extremity motor or sensory deficit after the procedure. Patient was discharged from the recovery room after meeting discharge criteria. Home discharge instructions were given to the patient by the staff. The patient will schedule a follow up in the clinic in 2-4 weeks.
--- NOTE | 2018-11-08 09:14 | FL ---
EXAMINATION TYPE: FL guided pain mgmt statistic DATE OF EXAM: 11/08/2018 HISTORY: Pain 3 FILMS, 9 SEC FL
[2018-11-08 09:27] VITALS: BP 125/84; PULSE 68
[2018-11-08] MEDS ORDERED: IV FLUID CONTINUATION 1,000 ML IV ONE (09:37)
== END 2018-11-08 09:40 | disposition home or self-care (01) ==
LOC: ORPAIN 07:28
PROVIDERS: ATTEND Anesthesiology
DX: M51.16 Intervertebral disc disorders with radiculopathy, lumbar region (principal); M47.26 Other spondylosis with radiculopathy, lumbar region
CPT/HCPCS: 62323; J2250; J1030; J3010; Q9966; 99152

== ENCOUNTER → 2018-12-06 | Outpatient (CLI) | payer OTHER ==
[2018-12-06 14:20] VITALS: BP 130/80; PULSE 65; RESP 16
--- NOTE | 2018-12-07 05:24 | P.PAINPG ---
Subjective Progress Note Date: 12/06/18 This is a follow-up visit for this 58 years old male with a history of chronic low back pain diagnosed with lumbar spondylosis and lumbar radiculopathy, status post radiofrequency ablation of the medial branch lumbar area and lumbar epidural steroid injection, patient reported that his low back pain improved significantly after interventional pain management, and his ability to functionally improved, currently his main problem is neck pain, the pain increases with any neck movement, he denies any motor or sensory deficit he denies any change in the bowel movement or urination. Denies any fever or night sweats. Objective - Vital Signs Vital signs: Vital Signs Temp Pulse 65 12/06/18 14:06 Resp 16 12/06/18 14:06 BP 130/80 12/06/18 14:06 Pulse Ox 100 12/06/18 14:06 Intake & Output 12/06/18 12/06/18 12/07/18 06:59 18:59 06:59 Weight 83.915 kg - Exam Physical Examinations : -Constitutiona : Cooperative , not in acute distress . -HEENT : nech : supple , no Lymphadenopathy , normal thyroid size . eyes : no ptosis , no icterus, no photophobia . ENT : normal of hearing , normal oropharynx , no Thrush . - Respiratory : Chest clear to auscultations Bilaterally , no wheezing , no Rhonchi . - Cardiovascula : regular rate and rhythem , S1 , S2 , no S3 , no S4. - Gastrointestina : abdomen soft no tenderness , bowel sounds , no organomegally . - Genitourinary : Defferred . - neurologic : Cranial nerve II to XII intact , no focal neurological deffecit . -psychatric : alert , oriented X 3 , appropriate affect , intact judgment and insight . -Lymphatic : no Lymphadenopathy . - musculoskeltal : Cervical Spine motor stregnth in the deltoid and biceps, normal right side , normal Left side motor stregnth biceps and the wrist extensors normal right side ,normal left side . motor stregnth in the triceps muscle . normal Right side , normal Left side deep tendon reflexes normal at the biceps , normal at Brachioradialis , normal at triceps. cervical facet loading test: Positive Bilaterally Spurling test negative bilaterally. Neck distraction test negative bilaterally Diana sign negative bilaterally Lumber spine moter stegnth lower extremities ,thigh and legs 5/5 Right side , 5/5 Left side MRI of the cervical spine [facility] showed multilevel cervical degenerative disc disease Assessment and Plan Plan: Assessment and plan= chronic low back pain secondary to lumbar radiculopathy. , lumbar spondylosis with lumbar facet arthropathy . Pain improved after RFA lumbar medial branches, and LESI. Chronic neck pain secondary to cervical degenerative disc disease and cervical spondylosis with cervical facet arthropathy. Patient will be scheduled to have diagnostic medial branch block cervical area at C3/C4/C5/C6 X2 we should not use a steroid, secondary to recent use of steroid when we did lumbar epidural steroid injection. Procedure risk and benefits and alternatives discussed with the patient he agreed with proceeding Time with Patient: Less than 30 PQRS Measure Charge Sheet Measure #130: Documentation of Current Meds in Medical Chart: Patient's medications documented in chart Measure #226: Tobacco Use: Screen & Cessation Intervention: Pt not a tobacco user Measure #111: Pneumonia Vaccination: Pneumococcal vaccine NOT administered or previously given Measure #47: Advance Care Plan: Advance care planning discussed & documented, pt chose/unable to give Measure #412: Opioid Treatment Agreement: No documentation of signed opioid treatment agreement Measure #408: Opioid Therapy Follow-up Evaluation: Patient had NO f/u eval minimum every 3 months during opioid therapy Measure #317: Preventitive Care & Scrn High Bld Press & F/U: Normal blood press ure, f/u not required Measure #128: Body Mass Index (BMI) Screening & Follow-up: BMI documented ABOVE normal parameters - f/u documented Measure #131: Pain Assessment & Follow-up: Pain positive & plan documented, Follow-up scheduled Measure #431: Unhealthy Alcohol Use Preventative Care & Scrn: Patient not identified as an unhealthy alcohol user PQRS Narrative: Smoking Status Never smoker Blood Pressure 130/80 Pain Intensity [Bilateral Neck 7 ] Scale Used Numeric (1 - 10) Hx Alcohol Use (MH) No Home Medications: Ambulatory Orders Lysine [l-Lysine] 500 mg PO DAILY 06/08/18 Venlafaxine HCl [Effexor XR] 225 mg PO QAM 06/08/18 clonazePAM [KlonoPIN] 1 mg PO QAM 06/08/18 Lecithin, Soy [Lecithin] 1,200 mg PO DAILY 06/09/18 Lisinopril [Zestril] 2.5 mg PO DAILY 08/16/18 Controlled Substance Measures - Controlled Substance Measures Is patient prescribed a controlled substance at discharge?: No
== END | disposition home or self-care (01) ==
LOC: PNWHC3 13:15
PROVIDERS: ATTEND Specialist
DX: G89.29 Other chronic pain (principal); M47.26 Other spondylosis with radiculopathy, lumbar region; M46.96 Unspecified inflammatory spondylopathy, lumbar region; M50.30 Other cervical disc degeneration, unspecified cervical region; M47.892 Other spondylosis, cervical region; M46.92 Unspecified inflammatory spondylopathy, cervical region; Z98.890 Other specified postprocedural states; Z79.899 Other long term (current) drug therapy
CPT/HCPCS: 99211

== ENCOUNTER 2018-12-22 15:09 | Emergency (ER) | payer OTHER ==
[2018-12-22 15:25] VITALS: BP 110/76; PULSE 95; RESP 16; TEMP 97.6
--- NOTE | 2018-12-22 16:01 | XR ---
EXAMINATION TYPE: XR elbow complete RT DATE OF EXAM: 12/22/2018 CLINICAL HISTORY: Pain after injury. TECHNIQUE: Frontal, lateral and oblique images of the right elbow are obtained. COMPARISON: None FINDINGS: There is no acute fracture/dislocation evident in the right elbow. No abnormal fat pad si gns are seen. Some tiny bony fragments in the region of the lateral epicondyle could reflect product of epicondylitis. Mild spurring of the olecranon. The overlying soft tissue appears unremarkable. IMPRESSION: There is no acute fracture or dislocation in the right elbow.
--- NOTE | 2018-12-22 16:26 | ED ---
General Adult HPI - General Chief complaint: Extremity Injury, Upper Stated complaint: rt elbow injury Time Seen by Provider: 12/22/18 15:29 Source: patient Mode of arrival: ambulatory Limitations: no limitations - History of Present Illness Initial comments: Patient is a 58-year-old male presenting to the emergency department with a chief complaint of elbow pain. Patient reports today he was carrying a large piece of plywood friend then wind blew it away and caused a sudden supination of the right forearm. Patient reports he felt a "crack" followed by sudden onset of pain. Patient does have history of lateral epicondylitis in the right elbow for which she wears a compression sleeve and a band. Patient denies any numbness or tingling. Patient reports the pain is exacerbated with supination and alleviated at rest. Patient denies any bony deformities, swelling or skin discoloration. Patient denies taking any medication to alleviate the symptom - Related Data Home Medications Medication Instructions Recorded Confirmed Lysine [l-Lysine] 500 mg PO DAILY 06/08/18 12/06/18 Venlafaxine HCl [Effexor XR] 225 mg PO QAM 06/08/18 12/06/18 clonazePAM [KlonoPIN] 1 mg PO QAM 06/08/18 12/06/18 Lecithin, Soy [Lecithin] 1,200 mg PO DAILY 06/09/18 12/06/18 Lisinopril [Zestril] 2.5 mg PO DAILY 08/16/18 12/06/18 Allergies Allergy/AdvReac Type Severity Reaction Status Date / Time No Known Allergies Allergy Verified 12/22/18 15:25 Review of Systems ROS Statement: Those systems with pertinent positive or pertinent negative responses have been documented in the HPI. ROS Other: All systems not noted in ROS Statement are negative. Past Medical History Past Medical History: Hypertension, Memory Impairment Additional Past Medical History / Comment(s): LOW BACK PAIN, HERNIATED DISCS. "Age-related memory impairment." steroid injection August History of Any Multi-Drug Resistant Organisms: None Reported Past Surgical History: Back Surgery Additional Past Surgical History / Comment(s): LOWER BACK SURGERY (OVER 30 YRS AGO), pain procedures Past Anesthesia/Blood Transfusion Reactions: No Reported Reaction Past Psychological History: Anxiety Smoking Status: Never smoker Past Alcohol Use History: None Reported Past Drug Use History: None Reported - Past Family History Mother Family Medical History: Cancer Additional Family Medical History / Comment(s): BREAST CANCER General Exam Limitations: no limitations General appearance: alert, in no apparent distress Head exam: Present: atraumatic, normocephalic, normal inspection Eye exam: Present: normal appearance ENT exam: Present: normal exam, mucous membranes moist, normal external ear exam Neck exam: Present: normal inspection, full ROM Respiratory exam: Present: normal lung sounds bilaterally Cardiovascular Exam: Present: regular rate, normal rhythm, normal heart sounds Extremities exam: Present: normal inspection, tenderness (Tenderness along the lateral epicondyle), normal capillary refill, other (+2 ulnar and radial pulses bilaterally.). Absent: full ROM (Limited range of motion with active supination in the right forearm. Full range of motion with passive supination), joint swelling Back exam: Present: normal inspection, full ROM Neurological exam: Present: alert, oriented X3 Psychiatric exam: Present: normal affect, normal mood Skin exam: Present: warm, intact, normal color Course Vital Signs 12/22/18 15:21 Temperature 97.6 F Pulse Rate 95 Respiratory 16 Rate Blood Pressure 110/76 O2 Sat by Pulse 98 Oximetry Medical Decision Making - Medical Decision Making Patient is a 58-year-old male presenting to the emergency department with a chief complaint of right elbow. Patient developed a sudden onset of pain after he was carrying a large piece of plywood which caused sudden supination of his right forearm. Patient does have history of lateral epicondylitis. Patient does have pain with palpation at the lateral epicondyle. Patient doesn't have any numbness or tingling. Limited range of motion with active supination only a full range of motion with passive supination. I suspect the patient to have the symptoms is an exacerbation of his lateral epicondylitis. Also suspect a possible elbow sprain. Patient advised to apply ice compress. X-rays unremarkable. Patient advised to alternate between Tylenol and ibuprofen for pain control. Patient reports that he does have a sling at home. Strict return parameters were thoroughly discussed with patient was understanding and agreeable. Patient advised to follow-up with orthopedics if symptoms do not improve after a week. Case discussed with physician. Disposition Clinical Impression: Right elbow pain, Sprain of elbow, right Disposition: HOME SELF-CARE Condition: Stable Instructions (If sedation given, give patient instructions): Elbow Sprain (ED) Additional Instructions: Alternate between Tylenol and ibuprofen for pain control. Apply ice compress to minimize symptoms. Please return to emergency department if symptoms worsen. Is patient prescribed a controlled substance at d/c from ED?: No Referrals: Colin Cárdenas DO [Primary Care Provider] - 1-2 days Time of Disposition: 16:25
== END 2018-12-22 16:35 | disposition home or self-care (01) ==
LOC: EC 15:09
DX: S53.401A Unspecified sprain of right elbow, initial encounter (principal); I10 Essential (primary) hypertension; F41.9 Anxiety disorder, unspecified; Z79.899 Other long term (current) drug therapy; Z87.39 Personal history of other diseases of the musculoskeletal system and connective tissue; X50.1XXA Overexertion from prolonged static or awkward postures, initial encounter; Y93.89 Activity, other specified
CPT/HCPCS: 99283

== ENCOUNTER 2018-12-27 08:29 | Day surgery (SDC) | payer OTHER ==
[2018-12-24 09:02] VITALS: BMI 25.0
[2018-12-27 08:51] VITALS: TEMP 97.8
[2018-12-27] MEDS ORDERED: LIDOCAINE 1% 20 ML VIAL (10MG/ML) FOR IV START INTRADERMA ONE (08:52)
[2018-12-27] MEDS ORDERED: LACTATED RINGERS 1,000 ML IV ONE (08:52)
[2018-12-27] MEDS ORDERED: IV FLUID CONTINUATION 500 ML IV ONE (10:05)
[2018-12-27 10:12] VITALS: RESP 16
[2018-12-27 10:20] VITALS: BP 129/82; PULSE 63
--- NOTE | 2018-12-27 10:40 | P.PCN ---
Date of Procedure: 12/27/18 Procedure(s) Performed: PREOPERATIVE DIAGNOSIS: Cervical Spondylosis with Facet Arthropathy.without myelopathy POSTOPERATIVE DIAGNOSIS: Cervical Spondylosis, Facet Arthropathy. Without myelopathy PROCEDURES: Bilateral Diagnostic C3, C4, C5, C6 medial branch blocks for facets C3-4, C4-5 and C5-6, with fluoroscopic guidance ANESTHESIA: Local with 1% lidocaine; IV sedation with Versed, sedation time 25 minutes Fluoroscopy was used for the procedure and images were saved in the radiology portion of the chart. EBL: Minimal PROCEDURE INDICATION: The patient with neck pain secondary to cervical arthropathy unresponsive to more conservative treatments. PROCEDURE DESCRIPTION / TECHNIQUE: The patient was seen and identified in the preoperative area. Risks, benefits, complications, and alternatives were discussed with the patient, the patient agreed to proceed with the procedure and signed the consent. IV was started. Vital signs remained stable throughout the procedure. Patient was taken to the OR and time out was completed. The patient was placed in the prone position on the procedure table. A pillow was placed under the patients chest to increase the cervical interlaminar space. The cervical area was prepped and draped in the usual sterile fashion. A timeout was performed. Vital signs were closely monitored during the procedure. Conscious sedation was used during the procedure to decrease patients anxiety. Using cross-table lateral fluoroscopy, the centroid of the trapezoid of the first level was identified, marked, and localized with 1% lidocaine 0.2 ml at each level for skin and subcutaneous infiltration . Subsequently, a 25 G 3.5" Quinke spinal needle was advanced guided by fluoroscopy to the centroid of the trapezoid . [place] tip position was confirmed using lateral fluoroscopy.0.2 mL of Isovue-200 was injected at each level, revealing no intravascular uptake. Subsequently, 0.5 mL of 4% lidocaine was injected at each level. COMPLICATIONS: No acute complications. Note: The patient reported that he was having no pain following the procedure. Pain score prior to procedure was 4/10. DISPOSITION / PLANS: The patient was placed in a supine position and transferred to the recovery area in a stable condition for observation and was discharged from the recovery room after meeting discharge criteria. Home discharge instructions given to the patient by the staff. The patient will follow up for repeat procedure in 2 weeks.
--- NOTE | 2018-12-27 11:03 | FL ---
EXAMINATION TYPE: FL guided pain mgmt statistic DATE OF EXAM: 12/27/2018 COMPARISON: NONE HISTORY: Neck pain TECHNIQUE: Fluoroscopy. FINDINGS: Fluoroscopic guidance was provided during procedure performed by Dr. [place]. A total of 11 s econds of fluoroscopic time was utilized during the procedure and 5 spot images was acquired demonstr ating multilevel localization of the cervical spine. IMPRESSION: As Above.
== END 2018-12-27 10:35 | disposition home or self-care (01) ==
LOC: ORPAIN 08:29
PROVIDERS: ATTEND Anesthesiology
DX: G89.29 Other chronic pain (principal); M47.812 Spondylosis without myelopathy or radiculopathy, cervical region; M50.30 Other cervical disc degeneration, unspecified cervical region; M47.26 Other spondylosis with radiculopathy, lumbar region; Z79.899 Other long term (current) drug therapy
CPT/HCPCS: 64490; 64491; 64492; J2250; Q9966; 99152; 99153

== ENCOUNTER 2019-01-19 10:57 | Day surgery (SDC) | payer OTHER ==
[2019-01-17 15:38] VITALS: BMI 25.6
[~2019-01-19 10:57] MED LIST changes: +DEXAMETHASONE SOD PHOSPHATE 10 MG/ML 1 ML VIAL IV ONE; +HYDROmorphone 0.5 MG/0.5 ML SYRINGE IVP PRN; +LIDOCAINE 1% 20 ML VIAL (10MG/ML) FOR IV START INTRADERMA PRN; +MIDAZOLAM 2 MG/2 ML VIAL IV PRN; +ONDANSETRON 4 MG/2 ML VIAL IVP ONE; +SCOPOLAMINE 1.5MG/72HR PATCH TRANSDERM ONE
--- NOTE | 2019-01-19 12:38 | P.ANPRN ---
Procedure Note - Anesthesia - Nerve Block Performed Right Infraclavicular Single Time Out Performed: Yes Date of Procedure: 01/19/19 Procedure Start Time: : Procedure Stop Time: Location of Patient Procedure: PreOp Indication: Acute Post-Operative Pain, Dx/Pain Location, Requested by Surgeon Sedation Type: Sedate with meaningful contact maintained Preparation: Sterile Prep Position: Supine Catheter: None Needle Types: Pajunk Needle Gauge: 21 Ultrasound used to visualize needle placement: Yes Ultrasound used to observe medication spread: Yes Injectate: 0.5% Ropivacaine (see comment for volume) (20) Blood Aspirated: No Pain Paresthesia on Injection Noted: No Resistance on Injection: Normal Image Stored and Saved: Yes Events: Uneventful and Well Tolerated
[2019-01-19] MEDS ORDERED: MIDAZOLAM 2 MG/2 ML VIAL ONE (13:44)
[2019-01-19] MEDS ORDERED: fentaNYL (PF) 50 MCG/ML 2 ML AMP ONE (13:44)
[2019-01-19] MEDS ORDERED: PROPOFOL 10 MG/ML 20 ML VIAL IV ONE (13:44)
[2019-01-19] MEDS ORDERED: LIDOCAINE 2%-EPI 1:100,000 20 ML VIAL ONE (13:44)
[2019-01-19] MEDS ORDERED: LIDOCAINE 1% INJ 10MG/ML (20 ML MDV) ONE (13:44)
[2019-01-19] MEDS ORDERED: ROPIVACAINE 5 MG/ML 30 ML VIAL ONE (13:44)
[2019-01-19] MEDS ORDERED: ePHEDrine SULFATE/0.9% NACL/PF 50 MG/5 ML SYRINGE IV ONE (13:44)
[2019-01-19] MEDS ORDERED: SUCCINYLCHOLINE CHLORIDE 100 MG/5 ML SYR IV ONE (13:44)
[2019-01-19] MEDS ORDERED: PHENYLEPHRINE-0.9% NACL SYG 1 MG/10 ML SYRINGE ONE (13:44)
[2019-01-19] MEDS ORDERED: LACTATED RINGERS 1,000 ML IV ONE ×2 (14:31)
[2019-01-19] MEDS ORDERED: ROPIVACAINE 5MG/ML 20ML VIAL MISCELLANE ONE ×3 (14:32→15:25)
[2019-01-19] MEDS ORDERED: LIDOCAINE 1%-EPI 1:100,000 20 ML VIAL SQ ONE ×2 (14:32→15:25)
--- NOTE | 2019-01-19 15:36 | FL ---
Fluoroscopy INDICATION: Biceps tendon repair FINDINGS: Fluoroscopy time: Not recorded Images obtained: 2. IMPRESSIONS: 1. Documentation of fluoroscopy.
--- NOTE | 2019-01-19 15:37 | XR ---
Fluoroscopy INDICATION: Pain FINDINGS: Fluoroscopy time: Not recorded Images obtained: 2. IMPRESSIONS: 1. Documentation of fluoroscopy.
[2019-01-19 15:54] VITALS: RESP 16; TEMP 96.8
[2019-01-19 16:57] VITALS: BP 93/60; PULSE 97
--- NOTE | 2019-01-22 15:58 | P.OP ---
Date of Procedure: 01/19/19 Preoperative Diagnosis: Complete, traumatic rupture of right distal biceps tendon Postoperative Diagnosis: Complete, traumatic rupture of right distal biceps tendon Procedure(s) Performed: Repair of right distal biceps tendon Implants: Biomet ZipLoop Toggleloc suture button with #2 Maxbraid suture Anesthesia: GETA, regional, local Surgeon: Kareem Calles Information Developer #1: Sharan Chavez Estimated Blood Loss (ml): 3 Condition: stable Disposition: PACU Indications for Procedure: The patient is a pleasant 58-year-old male who experienced a traumatic rupture of his right distal biceps when attempting to catch some falling plywood. An MRI was obtained which confirmed a complete rupture and the position of the distal tendon stump. Treatment options (and associated risks and benefits) were discussed in the office, including the risks of rerupture, contractures and loss of motion, need for a lengthy recovery process and possible need for additional surgery. The pros and cons of both nonoperative and operative treatment were discussed in detail. The patient elected to proceed with surgical repair. In preop, additional questions were answered. The patient expressed understanding and wished to proceed with surgery. Consent forms were signed. The operative site was confirmed and marked. Description of Procedure: The patient was brought to the operative suite and positioned supine with the operative limb on an armboard. The tourniquet was placed on the left upper extremity, which was then prepped and draped in standard, sterile fashion. A time-out was performed, confirming patient identifiers, the operative side, sites and procedures to be performed: all team members expressed agreement. The limb was exsanguinated with an Esmarch and the tourniquet was inflated. A longitudinal incision was marked over the radial tuberosity, confirmed with fluoroscopy. The skin was sharply incised. Crossing vessels were coagulated as needed with electrocautery. Spreading dissection proceeded down through the subcutaneous tissue. The lateral antebrachial cutaneous nerve was identified on the radial aspect of the wound. This was mobilized and protected throughout the case. Hohmann retractors were not utilized on the radial side of the wound. Finger dissection was used to localize the radial tuberosity. Multiple crossing vessels from the [place] of [place] were identified overlying the tuberosity. These were mobilized and/or coagulated as needed to gain adequate exposure. The biceps tendon was identified and found to be scarred down just proximal to its anatomic footprint. The scar tissue was sharply resected and the tendon end was delivered out of the wound. The bulbous end of the tendon was sharply resected. The distal tendon was whipstitched with a #2 Maxbraid suture. A 2.9 mm toggleloc suture button device with ziploop was utilized. The Maxbraid suture was tied to the suture button and the suture ends were then reinforced into the distal tendon stump with Krakw stitches. The forearm was maximally supinated and the tuberosity was visualized. A truong elevator was used to clear remaining tissue from the inseration site. A guidepin was drilled into the tuberosity and its position was confirmed on intraoperative fluoroscopy. A cannulated drill was inserted over the guidewire, drilling bicortically. The drill and guidewire were removed. The wound was irrigated with normal saline. A Beath pin was inserted through the bone tunnel and passed out the dorsal surface of the forearm through a small stab incision. The passing sutures were inserted into the pin which was then pulled through the bone tunnel, along with the suture button. Position of the button was confirmed with intraoperative fluoroscopy. Firm tension on the loop suture showed solid fixation. With the elbow held in 75 of flexion, tension was applied to the zip sutures and the tendon stump was pulled down to the tuberosity. This was confirmed visually and palpably. Tension under the repair showed excellent strength without laxity. The tension sutures were cut and the passing sutures were removed. The tourniquet was released after 52 minutes at 250 mmHg. Good hemostasis was obtained with held pressure and electrocautery. The wound was thoroughly irrigated with normal saline. The subcutaneous tissues were reapproximated with interrupted 2-0 Vicryl sutures. The incision was closed with a running 3-0 Monocryl subcuticular stitch. Local anesthetic with epinephrine was injected for an adjunctive postoperative pain control and hemostasis. A Steri-Strip was used to close the dorsal stab wound. Mastisol and Steri-Strips were applied followed by sterile dressings and a resting posterior long-arm plaster splint with the elbow in 60 of flexion. All sponge, needle and instrument counts were correct at the end of the case. The patient tolerated the procedure well and was transferred to recovery in stable condition.
== END 2019-01-19 17:34 | disposition home or self-care (01) ==
LOC: OR 10:57
PROVIDERS: ATTEND Orthopaedic Surgery
DX: S46.211A Strain of muscle, fascia and tendon of other parts of biceps, right arm, initial encounter (principal); X50.1XXA Overexertion from prolonged static or awkward postures, initial encounter; I10 Essential (primary) hypertension; Z98.1 Arthrodesis status; Z82.49 Family history of ischemic heart disease and other diseases of the circulatory system; Z79.1 Long term (current) use of non-steroidal anti-inflammatories (NSAID); Z79.899 Other long term (current) drug therapy
CPT/HCPCS: 24341; 64415; 76942; 73070; C1713; J2250; J1100; J0690; J2405; J2001; J3010; J2795 ×2; J2370; J0330; J2704; 64413

== ENCOUNTER → 2019-04-07 | Outpatient (CLI) | payer OTHER | END | disposition home or self-care (01) | LOC: LABWHC1 09:35 | PROVIDERS: ATTEND Orthopaedic Surgery | DX: E55.9 Vitamin D deficiency, unspecified (principal); M25.521 Pain in right elbow; S46.291D Other injury of muscle, fascia and tendon of other parts of biceps, right arm, subsequent encounter; Z48.89 Encounter for other specified surgical aftercare; Z98.890 Other specified postprocedural states | CPT/HCPCS: 36415; 82306 ==

== ENCOUNTER → 2019-08-31 | Outpatient (CLI) | payer OTHER ==
--- NOTE | 2019-08-31 09:43 | P.PAINPG ---
Subjective Progress Note Date: 08/31/19 Sid is a pleasant 59 y/o man with low back pain, he had been doing well until a few weeks ago, he began to have back pain again, described as low back pain radiating into the waist line and rarely into the legs. He has had this pain before and resoloved with the DIMA. He has RFA, he is unsure how much that helped. As for now, his pain is 7/10, worst in the morning, slwo to get up. He has been using a TENS unit, heat and rest. His movement is limited secondary to pain. He does not like using medications, he has not tried anything. Objective - Vital Signs Vital signs: Intake & Output 08/30/19 08/31/19 08/31/19 18:59 06:59 18:59 Weight 86.183 kg - Exam GENERAL: Awake, alert, oriented, no distress HENT: atraumatic, normocephalic, trachea midline, nose midline RESP: NO audible wheezing, no coughing CARDIO: Reg rate (per patient palpation), no edema ABDOMEN: Non tender (per patient), no distension CERVICAL SPINE: Range of motion preserved, Spurling Negative LUMBAR SPINE: Limited range of motion secondary to pain, pain with flexion and extension of the Lumbar spine. Appears to have a spasm of the L spine muscles. NEURO: Gait is Normal, Sensation in Lower ext normal (per patient) PSYCH: Cooperative, normal affect. Assessment and Plan Assessment: Lumbar DDD lumbar radiculopathy Plan: We discussed conservative techniques, he has not had improvement with those techniques yet, he has not tried any medications. Advised 1g tylenol q8-12 hours and or 600-800mg ibuprofen qday-bid. We will schedule for repeat DIMA L4/5 joan. PQRS Measure Charge Sheet Measure #130: Documentation of Current Meds in Medical Chart: Patient's medications documented in chart Measure #226: Tobacco Use: Screen & Cessation Intervention: Pt not a tobacco user Measure #111: Pneumonia Vaccination: Pneumococcal vaccine administered or previously received Measure #47: Advance Care Plan: Advance care planning discussed & documented, plan or surrogate given Measure #408: Opioid Therapy Follow-up Evaluation: Patient had NO f/u eval minimum every 3 months during opioid therapy Measure #317: Preventitive Care & Scrn High Bld Press & F/U: Blood pressure not documented, patient not eligible Measure #128: Body Mass Index (BMI) Screening & Follow-up: BMI documented within normal parameters Measure #131: Pain Assessment & Follow-up: Pain positive & plan documented Measure #431: Unhealthy Alcohol Use Preventative Care & Scrn: Patient not identified as an unhealthy alcohol user PQRS Narrative: Smoking Status Never smoker Pain Intensity [Lower Back] 7 Scale Used FLACC (1-3yrs) Hx Alcohol Use (MH) No Home Medications: Ambulatory Orders Venlafaxine HCl [Effexor XR] 225 mg PO QAM 06/08/18 clonazePAM [KlonoPIN] 1 mg PO QAM 06/08/18 Lisinopril [Zestril] 5 mg PO DAILY 08/16/18 Acetaminophen [Tylenol Extra Strength] 1,000 mg PO Q6H PRN 01/17/19 Controlled Substance Measures - Controlled Substance Measures Is patient prescribed a controlled substance at discharge?: No
== END | disposition home or self-care (01) ==
LOC: PNWHC3 07:00
PROVIDERS: ATTEND Hospitalist
DX: Z53.9 Procedure and treatment not carried out, unspecified reason (principal)

== ENCOUNTER 2019-09-13 06:12 | Day surgery (SDC) | payer OTHER ==
[2019-09-12 11:11] VITALS: BMI 25.7
[~2019-09-13 06:12] MED LIST changes: -DEXAMETHASONE SOD PHOSPHATE 10 MG/ML 1 ML VIAL IV ONE; -HYDROmorphone 0.5 MG/0.5 ML SYRINGE IVP PRN; -LIDOCAINE 1% 20 ML VIAL (10MG/ML) FOR IV START INTRADERMA PRN; -MIDAZOLAM 2 MG/2 ML VIAL IV PRN; -ONDANSETRON 4 MG/2 ML VIAL IVP ONE; -SCOPOLAMINE 1.5MG/72HR PATCH TRANSDERM ONE
[2019-09-13 06:29] VITALS: TEMP 97.7
[2019-09-13] MEDS ORDERED: LACTATED RINGERS 1,000 ML IV ONE (06:34)
[2019-09-13] MEDS ORDERED: LIDOCAINE 1% (10MG/ML) FOR IV START INTRADERMA ONE (06:35)
[2019-09-13] MEDS ORDERED: fentaNYL (PF) 50 MCG/ML 2 ML AMP ONE (06:54)
[2019-09-13] MEDS ORDERED: methylPREDNISolone ACETATE 40 MG/ML 1 ML VIAL ONE (06:54)
[2019-09-13] MEDS ORDERED: MIDAZOLAM 2 MG/2 ML VIAL ONE (06:54)
[2019-09-13] MEDS ORDERED: IOPAMIDOL M200 10 ML VIAL ONE (06:54)
[2019-09-13] MEDS ORDERED: IV FLUID CONTINUATION 1,000 ML IV ONE (07:24)
--- NOTE | 2019-09-13 07:24 | P.PCN ---
Date of Procedure: 09/13/19 Procedure(s) Performed: PREOPERATIVE DIAGNOSIS: 1- Lumbar radiculopathy, Lumbar Degenerative Disc Diseases 2-Lumbar spondylosis with Facet arthropathy without myelopathy POSTOPERATIVE DIAGNOSIS: 1-Lumber Degenerative Disc Diseases 2-Lumbar spondylosis with Facet arthropathy without myelopathy PROCEDURE 1. Lumbar epidural steroid injection under fluoroscopic guidance at the L5-S1 level using a right paramedian approach 2. Lumbar epidurogram. ANESTHESIA: Local with 1% lidocaine 3 ml, moderate sedation with intravenous Versed and fentanyl, sedation time 14 minutes Fluoroscopy was used for the procedure and images were saved in the radiology portion of the chart. EBL: Minimal PROCEDURE INDICATION: The patient with low back pain and radiculitis symptoms unresponsive to conservative treatment. Fluoroscopy was used to optimize visualization of the needle placement and to maximize safety. PROCEDURE DESCRIPTION / TECHNIQUE: The patient was seen and identified in the preoperative area. Risks, benefits, complications including but not limited to infections ,bleeding ,allergic reaction to the medications ,nerve damage and incomplete pain releif , and alternatives were discussed with the patient. The patient agreed to proceed with the procedure and signed the consent. IV was started, and vital signs were stable. Patient was taken to the OR and time out was completed. The patient was placed in the prone position on procedure table and a pillow was placed under the abdomen to reduce lumbar lordosis. The lumbosacral area was prepped and draped in the usual sterile fashion. Vitals were closely monitored during the procedure. Conscious sedation was used during the procedure to decrease patients anxiety. Using anterior-posterior fluoroscopy, the L5-S1 interlaminar space was identified and the skin over this site was marked and then infiltrated with 1% lidocaine subcutaneously. Subsequently, a 20-gauge 3.5" Tuohy epidural needle was inserted and advanced toward the epidural space using the loss of resistance technique and guided by AP and lateral/ oblique fluoroscopy. The correct needle position in the epidural space was verified with the injection of 2 mL of the water soluble contrast dye Isovue 200 contrast under live fluoroscopy, observing an excellent epidurogram. Then, after negative aspiration for blood and CSF and in the absence of paresthesias, a 5 ml mixture containing 80 mg of Depo-medrol , 3 ml of preservative free Normal Saline, and 1 ml of preservative free lidocaine 1% solution was injected and a washout epidurogram was seen. Needle was withdrawn intact, skin was cleansed, and bandages were applied. COMPLICATIONS: First attempt was done at L4-5, however I was unsure whether spread was epidural or intrathecal, hence needle was removed and procedure reattempted at L5-S1 with good epidural spread noted. DISPOSITION / PLANS: The patient was placed in a supine position and transferred to the recovery area in a stable condition for observation. There was no evidence of lower extremity motor or sensory deficit after the procedure. Annalisa natarajan was discharged from the recovery room after meeting discharge criteria. Home discharge instructions were given to the patient by the staff. The patient will schedule a follow up in the clinic in 2-4 weeks.
[2019-09-13 07:29] VITALS: RESP 16
--- NOTE | 2019-09-13 07:31 | FL ---
Fluoroscopy History: Lumbar Epid Inj 8sec fluoro time,4 images scanned
[2019-09-13 07:35] VITALS: BP 134/78; PULSE 60
== END 2019-09-13 07:53 | disposition home or self-care (01) ==
LOC: ORPAIN 06:12
PROVIDERS: ATTEND Anesthesiology
DX: M47.26 Other spondylosis with radiculopathy, lumbar region (principal); M51.16 Intervertebral disc disorders with radiculopathy, lumbar region
CPT/HCPCS: 62323; 99152

== ENCOUNTER → 2019-10-26 | Outpatient (CLI) | payer OTHER ==
[2019-10-26 11:44] VITALS: BP 120/74; PULSE 87; RESP 16
--- NOTE | 2019-10-26 12:48 | P.PAINPG ---
Subjective Progress Note Date: 10/26/19 Sid is a pleasant 59 y/o man with low back pain, diagnosed with lumbar degenerative disc disease, lumbar radiculopathy, he recently underwent lumbar epidural steroid injection at L5-S1 on 09/13/2019 and returns today for follow- up. He reports good ongoing pain relief from this procedure. Low back pain has significantly improved. Today, he wants us to address his neck pain. He has had neck pain for over 20 years, over the last 1-1/2 years his pain has worsened. pain is located in the right side of his neck radiating to right shoulder. He describes numbness and tingling in the right hand and elbow. He is having difficulty playing the pain and a with his right hand. 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 He follows with Dr. Calles and has been given wrist splints. Pain is rated as 8/10, described as aching, stiffness, worse with activity and fine motor skills, better with medications. He is taking meloxicam for pain. He denies side effects from this. Review of systems is negative for chest pain, shortness of breath, new onset weakness, numbness/tingling, abdominal pain, malaise, fever, night sweats, chills, homicidal or suicidal ideation, or bowel or bladder incontinence. Objective Physical exam: Vitals: Reviewed in EMR GENERAL: Well appearing, in no acute distress PSYCH: Mood and affect is appropriate. Awake, alert, and oriented SKIN: Skin color, texture, turgor normal, no rashes or lesions HEENT: Normocephalic, atraumatic. EOM intact CV: No pedal edema RESP: Respirations are unlabored, no audible wheezing GI: Abdomen non-distended MUSCULOSKELETAL: Bilateral upper and lower extremity strength is normal and symmetric. No atrophy or tone abnormalities are noted. Neck: Tenderness to palpation over the cervical paraspinous muscles on the right side. Spurling negative, Guerin's sign negative. No pain with neck flexion, extension, or lateral flexion. No obvious deformity or signs of trauma. Normal cervical lordotic curve and normal cervical spine range of motion Extremities: Peripheral joint ROM is full and pain free without obvious instability or laxity in all four extremities. No edema or skin discolorations noted. Right index and middle finger interphalangeal joints are swollen and tender to palpation Gait: Gait is normal NEUR: Bilateral upper extremity coordination and muscle stretch reflexes are physiologic and symmetric. Negative clonus bilaterally. No loss of sensation is noted. Assessment and Plan Assessment: Cervical degenerative disc disease Possible carpal tunnel syndrome on right side Lumbar DDD lumbar radiculopathy Plan: Cervical spine MRI ordered today I asked him to call Dr. Calles's office to schedule an appointment to evaluate for right carpal tunnel syndrome Follow-up: After cervical spine MRI. He will most likely benefit from cervical epidural steroid injections following MRI PQRS Measure Charge Sheet Measure #130: Documentation of Current Meds in Medical Chart: Patient's medications documented in chart Measure #226: Tobacco Use: Screen & Cessation Intervention: Pt not a tobacco user Measure #111: Pneumonia Vaccination: Pneumococcal vaccine not administered or previously received Measure #47: Advance Care Plan: Advance care planning discussed & documented, plan or surrogate given Measure #408: Opioid Therapy Follow-up Evaluation: Patient had NO f/u eval minimum every 3 months during opioid therapy Measure #317: Preventitive Care & Scrn High Bld Press & F/U: Blood pressure within normal limits Measure #128: Body Mass Index (BMI) Screening & Follow-up: BMI documented within normal parameters Measure #131: Pain Assessment & Follow-up: Pain positive & plan documented, follow-up scheduled Measure #431: Unhealthy Alcohol Use Preventative Care & Scrn: Patient not identified as an unhealthy alcohol user PQRS Measure Charge Sheet PQRS Narrative: Smoking Status Never smoker Pain Intensity [Lower Back] 3 Scale Used Numeric (1 - 10) Hx Alcohol Use (MH) No Home Medications: Ambulatory Orders Venlafaxine HCl [Effexor XR] 225 mg PO QAM 06/08/18 clonazePAM [KlonoPIN] 1 mg PO QAM 06/08/18 lisinopriL [Zestril] 5 mg PO DAILY 08/16/18 Meloxicam [Mobic] 15 mg PO BID 10/26/19 Controlled Substance Measures - Controlled Substance Measures Is patient prescribed a controlled substance at discharge?: No
== END | disposition home or self-care (01) ==
LOC: PNWHC3 11:00
PROVIDERS: ATTEND Anesthesiology
DX: M51.16 Intervertebral disc disorders with radiculopathy, lumbar region (principal); M50.30 Other cervical disc degeneration, unspecified cervical region; Z79.1 Long term (current) use of non-steroidal anti-inflammatories (NSAID); Z79.899 Other long term (current) drug therapy
CPT/HCPCS: 99211

== ENCOUNTER → 2019-11-03 | Outpatient (CLI) | payer OTHER ==
--- NOTE | 2019-11-03 08:54 | MR ---
MRI CERVICAL SPINE: CLINICAL HISTORY: Cervical radiculopathy and neck pain radiating to right upper extremity per order. Pain in neck extending down right arm for 9 months per patient.. TECHNIQUE: Multiplanar, multisequence imaging of the cervical spine is performed without IV contrast. COMPARISON: None. FINDINGS: Coronal images show levoconvex scoliosis centered mid to lower cervical spine. Sagittal mary ges show grade 1 retrolisthesis C3 on C4, C4 on C5, C5 on C6, and C6 on C7. Sagittal images of the ce rvical spine show the craniocervical junction to appear within normal limits. The cervical and upper thoracic spinal cord is normal in caliber and signal. Vertebral alignment is anatomic. The vertebr al body and intravertebral disk heights are fairly well-maintained. Mild multilevel anterior spurring . The bone marrow signal intensity is within normal limits. Axial images at C2-C3 level are within normal limits. Axial images at C3-C4 level shows some uncovertebral facet degenerative changes causing mild bilatera l neural foraminal narrowing. Axial images at C4-C5 level are both within normal limits. Axial images at C5-C6 level shows spondylosis with broad-based posterior disc protrusion effacing the anterior thecal sac and causing moderate left and mild to moderate right-sided neural foraminal narr owing. Axial images at C6-C7 level shows spondylosis with broad-based left paracentral/foraminal disc protru tabitha effacing the anterolateral thecal sac, there is [id number] right and moderate to severe le ft-sided neural foraminal narrowing. Axial images at C7-T1 level are within normal limits. IMPRESSION: Scoliosis with multilevel spondylolisthesis and degenerative changes as detailed above.
== END | disposition home or self-care (01) ==
LOC: RADMRIMAIN 07:35
PROVIDERS: ATTEND Anesthesiology
DX: M43.12 Spondylolisthesis, cervical region (principal); M54.12 Radiculopathy, cervical region; M47.892 Other spondylosis, cervical region; M41.82 Other forms of scoliosis, cervical region
CPT/HCPCS: 72141

== ENCOUNTER → 2019-11-23 | Outpatient (CLI) | payer OTHER ==
[2019-11-23 09:36] VITALS: BP 137/74; PULSE 79; RESP 16; TEMP 97.9
--- NOTE | 2019-11-23 09:57 | P.PAINPG ---
Subjective Progress Note Date: 11/23/19 Sid is a pleasant 59 y/o man with low back pain, diagnosed with lumbar spondylosis, lumbar degenerative disc disease, lumbar radiculopathy, previously we have done ,RFA medial branch lumbar area, and lumbar epidural steroid injection at L5-S1 . He reports good ongoing pain relief from this procedure. Low back pain has significantly improved. Today, he wants us to address his neck pain. He has had neck pain for over 20 years, over the last 1-1/2 years his pain has worsened. pain is located in the right side of his neck radiating to right shoulder. Patient had MRI of the cervical spine done recently , and it showed multilevel cervical facet arthropathy , he denies any motor or sensory deficit he denies any fever or night sweats with any denies any change in bowel movement or urination Review of systems is negative for chest pain, shortness of breath, new onset weakness, numbness/tingling, abdominal pain, malaise, fever, night sweats, chills, homicidal or suicidal ideation, or bowel or bladder incontinence. Objective - Vital Signs Vital signs: Vital Signs Temp 97.9 F 11/23/19 09:13 Pulse 79 11/23/19 09:13 Resp 16 11/23/19 09:13 BP 137/74 11/23/19 09:13 Pulse Ox 97 11/23/19 09:13 Intake & Output 11/22/19 11/23/19 11/23/19 18:59 06:59 18:59 Weight 83.915 kg - Exam Physical Examinations : -Constitutiona : Cooperative , not in acute distress . -HEENT : nech : supple , no Lymphadenopathy , normal thyroid size . : eyes : no ptosis , no icterus, no photophobia . : ENT : normal of hearing , normal oropharynx , no Thrush . - Respiratory : Chest clear to auscultations Bilaterally , no wheezing , no Rhonchi . - Cardiovascula : regular rate and rhythem , S1 , S2 , no S3 , no S4. - Gastrointestina : abdomen soft no tenderness , bowel sounds , no organomegally . - Genitourinary : Defferred . - neurologic : Cranial nerve II to XII intact , no focal neurological deffecit . -psychatric : alert , oriented X 3 , appropriate affect , intact judgment and insight . -Lymphatic : no Lymphadenopathy . - musculoskeltal : Cervical Spine motor stregnth in the deltoid and biceps, normal right side , normal Left side motor stregnth biceps and the wrist extensors normal right side ,normal left side . motor stregnth in the triceps muscle . normal Right side , normal Left side deep tendon reflexes normal at the biceps , normal at Brachioradialis , normal at triceps. cervical facet loading test= Positive Bilaterally Spurling test= negative bilaterally. Neck distraction test= negative bilaterally. Diana sign= negative bilaterally. Trigger point identified in the right side shoulder blade area Lumber spine moter stegnth lower extremities ,thigh and legs 5/5 Right side , 5/5 Left side Assessment and Plan Plan: Assessment and plan= 1-lumbar spondylosis with lumbar facet arthropathy. 2-lumbar radiculopathy. 3-cervico spondylosis with facet arthropathy. 4-myofascial pain syndrome right shoulder blade area. Patient reported that currently most of the pain is in the right shoulder blade area. Patient could benefit from trigger point injection in the right side shoulder blade area, if she should continue his current medication Mobic 15 mg by mouth daily when necessary, in the future if the neck pain increases patient would be good candidate for diagnostic medial branch block cervical area Time with Patient: Less than 30 PQRS Measure Charge Sheet Measure #130: Documentation of Current Meds in Medical Chart: Patient's medic ations documented in chart Measure #226: Tobacco Use: Screen & Cessation Intervention: Pt not a tobacco user Measure #111: Pneumonia Vaccination: Pneumococcal vaccine NOT administered or previously given Measure #47: Advance Care Plan: Advance care planning discussed & documented, pt chose/unable to give Measure #412: Opioid Treatment Agreement: No documentation of signed opioid treatment agreement Measure #317: Preventitive Care & Scrn High Bld Press & F/U: Normal blood pressure, f/u not required Measure #128: Body Mass Index (BMI) Screening & Follow-up: BMI documented within normal parameters Measure #131: Pain Assessment & Follow-up: Pain positive & plan documented, Follow-up scheduled Measure #431: Unhealthy Alcohol Use Preventative Care & Scrn: Patient not identified as an unhealthy alcohol user PQRS Narrative: Smoking Status Never smoker Blood Pressure 137/74 Pain Intensity [Back] 3 Scale Used Numeric (1 - 10) Hx Alcohol Use (MH) No Home Medications: Ambulatory Orders Venlafaxine HCl [Effexor XR] 225 mg PO QAM 06/08/18 clonazePAM [KlonoPIN] 1 mg PO QAM 06/08/18 lisinopriL [Zestril] 5 mg PO DAILY 08/16/18 Meloxicam [Mobic] 15 mg PO DAILY 10/26/19 Controlled Substance Measures - Controlled Substance Measures Is patient prescribed a controlled substance at discharge?: No
== END | disposition home or self-care (01) ==
LOC: PNWHC3 08:44
PROVIDERS: ATTEND Specialist
DX: M47.26 Other spondylosis with radiculopathy, lumbar region (principal); M46.96 Unspecified inflammatory spondylopathy, lumbar region; M47.22 Other spondylosis with radiculopathy, cervical region; M46.92 Unspecified inflammatory spondylopathy, cervical region; M79.18 Myalgia, other site; Z79.891 Long term (current) use of opiate analgesic; Z79.899 Other long term (current) drug therapy
CPT/HCPCS: 99211

== ENCOUNTER 2019-12-08 09:28 | Day surgery (SDC) | payer OTHER ==
[2019-12-06 11:29] VITALS: BMI 25.0
[2019-12-08 09:43] VITALS: TEMP 97
[2019-12-08] MEDS ORDERED: ROPIVACAINE 5MG/ML 20ML VIAL ONE (10:10)
[2019-12-08] MEDS ORDERED: methylPREDNISolone ACETATE 40 MG/ML 1 ML VIAL ONE (10:10)
--- NOTE | 2019-12-08 10:25 | P.PCN ---
Date of Procedure: 12/08/19 Procedure(s) Performed: Procedure= trigger point injection , 3 trigger point injected on the right shoulder blade area. Preoperative diagnosis= 1-myofascial pain syndrome right shoulder blade area 2-cervical spondylosis with cervical facet arthropathy 3-lumbar spondylosis with lumbar facet arthropathy Postoperative diagnosis=Same as preop Diagnosis . Complication = none Condition= stable Anesthesia= none. Indication for the procedure= patient complaining of neck pain and right shoulder blade pain , examination was positive for multiple trigger point identified in the right shoulder blade area Description of the procedure= procedure risk and benefits discussed with the patient he agreed with the preceding patient taken to the procedure room placed in sitting position, the trigger point marked and identified in the right shoulder blade area and then the right shoulder blade area prepped with chlorhexidine 3 then under sterile technique, using 25-gauge needle each of the trigger point which was identified in the right shoulder blade area each one of them injected with a mixture of ropivacaine 0.5% mixed with 40 mg of Depo-Medrol 3 mL of the mixture injected at each trigger point after negative aspiration and there was no paresthesia during the injection patient tolerated the procedure well without any complications, and he will follow up in the pain clinic in a few weeks
[2019-12-08 10:58] VITALS: BP 138/86; PULSE 66; RESP 20
== END 2019-12-08 10:59 | disposition home or self-care (01) ==
LOC: ORPAIN 09:28
PROVIDERS: ATTEND Specialist
DX: M79.18 Myalgia, other site (principal); M47.812 Spondylosis without myelopathy or radiculopathy, cervical region; M47.816 Spondylosis without myelopathy or radiculopathy, lumbar region
CPT/HCPCS: 20553; J1030; J2795

== ENCOUNTER 2020-02-28 06:52 | Day surgery (SDC) | payer OTHER ==
[2020-02-24 16:18] VITALS: BMI 25.0
[2020-02-28 07:15] VITALS: TEMP 97.1
[2020-02-28] MEDS ORDERED: ROPIVACAINE 5MG/ML 20ML VIAL ONE (07:49)
[2020-02-28] MEDS ORDERED: methylPREDNISolone ACETATE 40 MG/ML 1 ML VIAL ONE (07:49)
--- NOTE | 2020-02-28 08:00 | P.PCN ---
Date of Procedure: 02/28/20 Description of Procedure: Procedure= trigger point injection , 3 trigger point injected on the right shoulder blade area. Preoperative diagnosis= 1-myofascial pain syndrome right shoulder blade area 2-cervical spondylosis with cervical facet arthropathy 3-lumbar spondylosis with lumbar facet arthropathy Postoperative diagnosis=Same as preop Diagnosis . Complication = none Condition= stable Anesthesia= none. Indication for the procedure= patient complaining of neck pain and right shoulder blade pain , examination was positive for multiple trigger point identified in the right shoulder blade area Description of the procedure= procedure risk and benefits discussed with the patient he agreed with the preceding patient taken to the procedure room placed in sitting position, the trigger point marked and identified in the right shoulder blade area and then the right shoulder blade area prepped with chlorhexidine 3 then under sterile technique, using 25-gauge needle each of the trigger point which was identified in the right shoulder blade area each one of them injected with a mixture of ropivacaine 0.5% mixed with 40 mg of Depo-Medrol 4 mL of the mixture injected at each trigger point (total of 4 trigger points) after negative aspiration and there was no paresthesia during the injection patient tolerated the procedure well without any complications, and he will follow up in the pain clinic in 8 weeks
[2020-02-28 08:13] VITALS: BP 138/87; PULSE 62; RESP 20
== END 2020-02-28 08:31 | disposition home or self-care (01) ==
LOC: ORPAIN 06:52
PROVIDERS: ATTEND Anesthesiology
DX: M47.812 Spondylosis without myelopathy or radiculopathy, cervical region (principal); M47.816 Spondylosis without myelopathy or radiculopathy, lumbar region; M79.18 Myalgia, other site
CPT/HCPCS: 20553; J1030; J2795

== ENCOUNTER → 2020-04-25 | Outpatient (CLI) | payer OTHER ==
[2020-04-25 10:42] VITALS: BP 124/80; PULSE 87; RESP 18
--- NOTE | 2020-04-25 11:13 | P.PN ---
Subjective Progress Note Date: 04/25/20 This is a 59-year-old gentleman with history of neck and lower back pain. The patient has been receiving injections in his lower back and also trigger point injection on the neck and thoracic paravertebral musculature which has been helping his pain well. Lately he has been having pain in his left shoulder with heaviness in the left arm and numbness and both hands. The pain radiates from the left shoulder down to the left hand. This pain has been there for about 2 months now. He had cervical spine MRI which showed significant neural foraminal stenosis at the C5 6 and C6 7 levels mostly on the left side. Patient denies new-onset weakness, bowel/bladder incontinence, or any other signs or symptoms of cauda equina syndrome. There are no signs of acute intoxication, and no indications of medication diversion or overuse. In addition to above, 13-point review of systems is also negative for chest pain, shortness of breath, changes in vision, changes in hearing, new onset weakness, abdominal pain, diarrhea, extreme fatigue, malaise, fever, skin saeed es, homicidal or suicidal ideation, or bowel or bladder incontinence. Vital Signs: Reviewed in EMR Gen: AAOx3, NAD HEENT: PERRLA,hearing grossly normal Pulm: resp unlabored Neck: supple, trachea midline Neuro exam of the upper extremities: Normal and symmetrical biceps reflex, absent triceps reflex, normal muscle strength bilaterally in the upper extremities. Straight leg raising test: Freddie's test: Range of motion of the left shoulder: Is within normal limits Range of motion of the cervical spine is within normal limits Facet loading test: Tenderness in the paravertebral musculature: Neuro: CN II-XII grossly intact, Imaging: Reviewed in EMR/chart Assessment: Left cervical radiculopathy Lumbar spondylosis without myelopathy Plan: 1. Explanation: Opioid and psychological risk scores were reviewed. Diagnoses, prognoses, and multiple treatment options including but not limited to physical therapy, interventional therapies, adjuvant medical therapies, narcotic medication therapies, and surgery were discussed with the patient and all questions were answered to the patient's satisfaction. 2. Opioid agreement: Signed with the patient and the patient is warned not to u se opioids while driving or before driving and not to combine opioids with benzodiazepines or alcohol. 3. Counseling: The patient was counseled extensively on SMOKING CESSATION, BODY MASS INDEX, EXERCISE. Specifically, the patient was instructed regarding the importance of smoking cessation, obesity, and exercise in the context of both chronic pain and overall health. 4. Procedures: Scheduled for cervical epidural steroid injection under fluoroscopic guidance at the C7-T1 level in the left paramedian approach. The procedure was explained to the patient he was agreeable to it. 5. Consultations: None 6. Investigations: None 7. Medications: None 8. Disposition: Proceed with the above-mentioned procedure as soon as possible 9. Maps were reviewed and were appropriate. Objective - Vital Signs Vital signs: Vital Signs Temp Pulse 87 04/25/20 10:37 Resp 18 04/25/20 10:37 BP 124/80 04/25/20 10:37 Pulse Ox 98 04/25/20 10:37
== END | disposition home or self-care (01) ==
LOC: PNWHC3 10:27
PROVIDERS: ATTEND Anesthesiology
DX: M47.22 Other spondylosis with radiculopathy, cervical region (principal); M47.816 Spondylosis without myelopathy or radiculopathy, lumbar region
CPT/HCPCS: 99211

== ENCOUNTER 2020-05-15 06:11 | Day surgery (SDC) | payer OTHER ==
[2020-05-14 11:20] VITALS: BMI 25.0
[2020-05-15 06:56] VITALS: TEMP 97.5
[2020-05-15] MEDS ORDERED: DEXAMETHASONE SOD PHOSPHATE 10 MG/ML 1 ML VIAL ONE (07:18)
[2020-05-15] MEDS ORDERED: IOPAMIDOL M200 10 ML VIAL ONE (07:18)
--- NOTE | 2020-05-15 07:30 | P.PCN ---
Date of Procedure: 05/15/20 Description of Procedure: Diagnosis: Cervical radiculopathy Cervical degenerative disc disease POSTOPERATIVE DIAGNOSIS: Diagnoses: Cervical radiculopathy Cervical degenerative disc disease PROCEDURE Cervical Epidural steroid injection under fluoroscopic guidance at the C7-T1 interspace using left paramedian approach Cervical epidurogram ANESTHESIA: Local with 1% lidocaine 3 ml and IV sedation with Versed and fentanyl Fluoroscopy was used for the procedure and images were saved in the radiology portion of the chart. EBL: Minimal PROCEDURE INDICATION: The patient presents with cervical radicular symptoms unresponsive to conservative treatment. This is the first cervical epidural steroid injection. PROCEDURE DESCRIPTION / TECHNIQUE: The patient was seen and identified in the preoperative area. Risks, benefits, complications including but not limited to infections ,bleeding ,allergic reaction to the medications ,nerve damage and incomplete pain relief, and alternatives were discussed with the patient. The patient agreed to proceed with the procedure and signed the consent. IV was started, and vital signs were stable. Patient was taken to the OR and time out was completed. The patient was placed in the prone position on procedure table and a pillow was placed under the chest area. The cervical area was prepped and draped in the usual sterile fashion. Conscious sedation was used during the procedure to decrease patients anxiety. Vital signs was monitored during the entire procedure. Using anterior-posterior fluoroscopy, the C7-T1 interlaminar space was identified and the skin over this site was marked and then infiltrated with 1% lidocaine subcutaneously. Subsequently, a 20-gauge Tuohy epidural needle was inserted and advanced toward the epidural space using the loss of resistance technique and guided by AP and 50 oblique fluoroscopy. The correct needle position in the epidural space was verified. After negative aspiration for blood and CSF and in the absence of paresthesias, Isovue 200 2 mL's was injected under live fluoroscopy with good epidural spread. After negative aspiration, a 4 ml mixture containing 10 mg of dexamethasone, 3 mL of preservative free normal saline was injected. Needle was withdrawn intact, skin was cleansed, and bandages were applied. COMPLICATIONS: None DISPOSITION / PLANS: The patient was placed in a supine position and transferred to the recovery area in a stable condition for observation. There was no evidence of lower extremity motor or sensory deficit after the procedure. Patient was discharged from the recovery room after meeting discharge criteria. Home discharge instructions were given to the patient by the staff. The patient will be scheduled a follow up in the clinic in 2-4 weeks. If The patient does not get benefit from this procedure, I would do trigger point injections in the left side. He had great benefit with right-sided trigger point injections in the cervical paraspinal and rhomboid area.
[2020-05-15 07:46] VITALS: RESP 20
--- NOTE | 2020-05-15 07:46 | FL ---
Fluoroscopy INDICATION: Pain FINDINGS: Fluoroscopy time: 9 seconds. Images obtained: 2. IMPRESSIONS: 1. Documentation of fluoroscopy.
[2020-05-15 07:54] VITALS: BP 137/90; PULSE 59
== END 2020-05-15 07:56 | disposition home or self-care (01) ==
LOC: ORPAIN 06:11
PROVIDERS: ATTEND Anesthesiology
DX: M50.10 Cervical disc disorder with radiculopathy, unspecified cervical region (principal)
CPT/HCPCS: 62321; J1100; Q9966

== ENCOUNTER → 2020-05-28 | Outpatient (CLI) | payer OTHER ==
[2020-05-28 14:28] VITALS: BP 126/75; PULSE 76; RESP 16; TEMP 97.5
--- NOTE | 2020-05-28 15:23 | P.PAINPG ---
Subjective Progress Note Date: 05/28/20 Subjective Progress Note Date: 04/25/20 This is a 59-year-old gentleman with history of neck and lower back pain. The patient has been receiving injections in his lower back and also trigger point injection on the neck and thoracic paravertebral musculature which has been helping his pain well. Lately he has been having pain in his left shoulder with heaviness in the left arm and numbness and both hands. The pain radiates from the left shoulder down to the left hand. This pain has been there for about 2 months now. He had cervical spine MRI which showed significant neural foraminal stenosis at the C5 6 and C6 7 levels mostly on the left side. Most recently had JOE C7-TI x1 He noted that he had good relief with the most recent epidural steroid injection in his neck, however he still endorses bilateral hand tingling. 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 Most importantly he is having some more back pain. He has had epidurals in the past with good relief and was hoping for another one. He also mentions on his right elbow that he has been diagnosed with tennis elbow in the past and is wondering if he would be able to get an injection there at some point, understanding that he needs to limit the amount of steroid injections that he has had. Patient denies new-onset weakness, bowel/bladder incontinence, or any other signs or symptoms of cauda equina syndrome. There are no signs of acute intoxication, and no indications of medication diversion or overuse. In addition to above, 13-point review of systems is also negative for chest pain, shortness of breath, changes in vision, changes in hearing, new onset weakness, abdominal pain, diarrhea, extreme fatigue, malaise, fever, skin changes, homicidal or suicidal ideation, or bowel or bladder incontinence. Vital Signs: Reviewed in EMR Gen: AAOx3, NAD HEENT: PERRLA,hearing grossly normal Pulm: resp unlabored Neck: supple, trachea midline Neuro exam of the upper extremities: Normal and symmetrical biceps reflex, absent triceps reflex, normal muscle strength bilaterally in the upper extremities. Straight leg raising test: positive on the right side Freddie's test:negative Range of motion of the left shoulder: Is within normal limits Range of motion of the cervical spine is within normal limits Facet loading test: negative Tenderness in the paravertebral musculature: improved since last visit Tenderness over lateral aspect of left elbow, ROM intact Neuro: CN II-XII grossly intact, Imaging: Reviewed in EMR/chart Assessment: Left cervical radiculopathy Lumbar spondylosis without myelopathy Plan: 1. Explanation: Opioid and psychological risk scores were reviewed. Diagnoses, prognoses, and multiple treatment options including but not limited to physical therapy, interventional therapies, adjuvant medical therapies, narcotic medication therapies, and surgery were discussed with the patient and all questions were answered to the patient's satisfaction. 2. Opioid agreement: patient is not on opioids 3. Counseling: The patient was counseled extensively on EXERCISE. Specifically, the patient was instructed regarding the importance of exercise in the context of both chronic pain and overall health. 4. Procedures: I did talk to the patient that generally speaking a second epidural steroid injection can give even greater relief than the first. At this point he would like to proceed with a lumbar L5-S1 epidural steroid injection, he has had this injection in the past with good results. However if his back pain resolves he will call in and would like to change to a second round of a cervical epidural steroid injection. 5. Consultations: None 6. Investigations: None 7. Medications: None 8. Disposition: Proceed with the above-mentioned procedure as soon as possible 9. Maps were reviewed and were appropriate. I spent 34 minutes chart reviewing this patient, speaking to the patient and discussing plan of care. PQRS Measure Charge Sheet PQRS Narrative: Smoking Status Never smoker Pain Intensity [Lower Back] 6 Scale Used Numeric (1 - 10) Hx Alcohol Use (MH) No Home Medications: Ambulatory Orders Venlafaxine HCl [Effexor XR] 225 mg PO QAM 06/08/18 clonazePAM [KlonoPIN] 1 mg PO QAM 06/08/18 lisinopriL [Zestril] 5 mg PO DAILY 08/16/18 Meloxicam [Mobic] 15 mg PO DAILY 10/26/19 Multivitamins, Thera [Multivitamin (formulary)] 1 tab PO DAILY 05/14/20 Controlled Substance Measures - Controlled Substance Measures Is patient prescribed a controlled substance at discharge?: No
== END ==
LOC: PNWHC3 14:15
PROVIDERS: ATTEND Anesthesiology
DX: M54.12 Radiculopathy, cervical region (principal); M47.816 Spondylosis without myelopathy or radiculopathy, lumbar region
CPT/HCPCS: 99211

== ENCOUNTER 2020-06-05 08:24 | Day surgery (SDC) | payer OTHER ==
[2020-05-31 12:30] VITALS: BMI 26.6
[2020-06-05 08:43] VITALS: RESP 16; TEMP 97.3
[2020-06-05] MEDS ORDERED: IOPAMIDOL M200 10 ML VIAL ONE (08:50)
[2020-06-05] MEDS ORDERED: methylPREDNISolone ACETATE 40 MG/ML 1 ML VIAL ONE (08:50)
--- NOTE | 2020-06-05 09:09 | P.PCN ---
Date of Procedure: 06/05/20 Procedure(s) Performed: PREOPERATIVE DIAGNOSIS: 1- Lumbar Degenerative Disc Diseases 2-Lumbar spondylosis with Facet arthropathy without myelopathy POSTOPERATIVE DIAGNOSIS: Same as preop diagnosis. PROCEDURE 1. Lumbar epidural steroid injection under fluoroscopic guidance at the L5-S1 level. (Fluoroscopy imaging was available in radiology department) 2. Lumbar epidurogram. ANESTHESIA: Local with 1% lidocaine 3 ml only. EBL: Minimal PROCEDURE INDICATION: The patient with low back pain and radiculitis symptoms unresponsive to conservative treatment. Fluoroscopy was used to optimize visualization of the needle placement and to maximize safety. PROCEDURE DESCRIPTION / TECHNIQUE: The patient was seen and identified in the preoperative area. Risks, benefits, complications including but not limited to infections ,bleeding ,allergic reaction to the medications ,nerve damage and not complete pain releife , and alternatives were discussed with the patient. The patient agreed to proceed with the procedure and signed the consent., and vital signs were stable. Patient was taken to the OR and time out was completed. The patient was placed in the prone position on procedure table and a pillow was placed under the abdomen to reduce lumbar lordosis. The lumbosacral area was prepped and draped in the usual sterile fashion.ere closely monitored during the procedure. Vital signs was monitered during the entire procedure. Using anterior-posterior fluoroscopy, the L5-S1 interlaminar space was identified and the skin over this site was marked and then infiltrated with 1% lidocaine subcutaneously. Subsequently, a 20-gauge Tuohy epidural needle was inserted and advanced toward the epidural space using the ``Loss of resistance technique and guided by AP and lateral fluoroscopy. The correct needle position in the epidural space was verified with the injection of 2 mL of the water soluble contrast dye Isovue 200 contrast and observing an excellent epidurogram with the epidural spread of the dye, after negative aspiration for blood and CSF and in the absence of paresthesias. Again after negative aspiration, a 6 ml mixture containing 80 mg of Depo-medrol , and 2 ml of preservative free Normal Saline, and 2 ml of preservative free lidocaine 1% solution was injected and a washout of epidurogram was seen. Needle was withdrawn intact, skin was cleansed, and bandages were applied. COMPLICATIONS: None DISPOSITION / PLANS: The patient was placed in a supine position and transferred to the recovery area in a stable condition for observation. There was no evidence of lower extremity motor or sensory deficit after the procedure. Patient was discharged from the recovery room after meeting discharge criteria. Home discharge instructions were given to the patient by the staff. The patient was reexamined prior to discharge. The patient will schedule a follow up in the clinic in 2-4 weeks.
[2020-06-05 09:14] VITALS: BP 118/74; PULSE 66
--- NOTE | 2020-06-05 09:43 | FL ---
EXAMINATION TYPE: FL guided pain mgmt statistic DATE OF EXAM: 06/05/2020 CLINICAL HISTORY: Low back pain. TECHNIQUE: Fluoroscopy. COMPARISON: None. FINDINGS: Fluoroscopic guidance was provided during pain relief procedure performed by Dr. Beatty . A total of 3 seconds of fluoroscopic time was utilized during the procedure and 1 spot images are acquired. Single limited acquired shows needle localization at L5-S1 level with contrast injection. IMPRESSION: As Above.
== END 2020-06-05 09:41 | disposition home or self-care (01) ==
LOC: ORPAIN 08:24
PROVIDERS: ATTEND Specialist
DX: M47.26 Other spondylosis with radiculopathy, lumbar region (principal); M51.16 Intervertebral disc disorders with radiculopathy, lumbar region
CPT/HCPCS: 62323; J1030; Q9966

== ENCOUNTER → 2020-06-25 | Outpatient (CLI) | payer OTHER ==
[2020-06-25 10:09] VITALS: BP 157/84; PULSE 80; RESP 16; TEMP 97.7
--- NOTE | 2020-06-25 10:18 | P.PN ---
Subjective Progress Note Date: 06/25/20 This is a 51-year-old gentleman with history of axial lower back pain due to lumbar spondylosis and degenerative disc disease. The patient had lumbar epidural steroid injection was given only 2 days of pain relief because he went back to work right away as she states. The patient reports that he had lumbar medial branch RFA previously which gave him significant pain relief with at least 80% and lasted for long time. He denies any bowel or bladder dysfunction or any paresthesia in the lower extremities. He takes Mobic for his pain. Patient denies new-onset weakness, bowel/bladder incontinence, or any other signs or symptoms of cauda equina syndrome. There are no signs of acute intoxication, and no indications of medication diversion or overuse. In addition to above, 13-point review of systems is also negative for chest pain, shortness of breath, changes in vision, changes in hearing, new onset weakness, abdominal pain, diarrhea, extreme fatigue, malaise, fever, skin changes, homicidal or suicidal ideation, or bowel or bladder incontinence. Vital Signs: Reviewed in EMR Gen: AAOx3, NAD HEENT: PERRLA,hearing grossly normal Pulm: resp unlabored Neck: supple, trachea midline Neuro exam of the lower extremities: Within normal limits Straight leg raising test: Freddie's test: Range of motion of the lumbar spine: Facet loading test: Positive bilaterally Tenderness in the paravertebral musculature: Positive in the lumbar area bilaterally Neuro: CN II-XII grossly intact, Imaging: Reviewed in EMR/chart Assessment: Lumbar spondylosis without myelopathy Lumbar DDD The degenerative joint disease Plan: 1. Explanation: Opioid and psychological risk scores were reviewed. Diagnoses, prognoses, and multiple treatment options including but not limited to physical therapy, interventional therapies, adjuvant medical therapies, narcotic medication therapies, and surgery were discussed with the patient and all questions were answered to the patient's satisfaction. 2. Opioid agreement: Signed with the patient and the patient is warned not to use opioids while driving or before driving and not to combine opioids with benzodiazepines or alcohol. 3. Counseling: The patient was counseled extensively on SMOKING CESSATION, BODY MASS INDEX, EXERCISE. Specifically, the patient was instructed regarding the importance of smoking cessation, obesity, and exercise in the context of both chronic pain and overall health. 4. Procedures: Schedule for lumbar medial branch RFA for levels L4 5 and L5-S1 bilaterally under fluoroscopic guidance. 5. Consultations: None 6. Investigations: None 7. Medications: Patient takes Mobic for his pain from his primary care physician 8. Disposition: Proceed with the above-mentioned procedure as soon as possible 9. Maps were reviewed and were appropriate. Objective - Vital Signs Vital signs: Vital Signs Temp 97.7 F 06/25/20 09:48 Pulse 80 06/25/20 09:48 Resp 16 06/25/20 09:48 BP 157/84 06/25/20 09:48 Pulse Ox 98 06/25/20 09:48
== END ==
LOC: PNWHC3 09:33
PROVIDERS: ATTEND Anesthesiology
DX: M47.816 Spondylosis without myelopathy or radiculopathy, lumbar region (principal); M51.36 Other intervertebral disc degeneration, lumbar region; M19.90 Unspecified osteoarthritis, unspecified site; Z79.1 Long term (current) use of non-steroidal anti-inflammatories (NSAID)
CPT/HCPCS: 99211

== ENCOUNTER 2020-09-14 06:24 | Day surgery (SDC) | payer OTHER ==
[2020-09-14 06:51] VITALS: RESP 16; TEMP 97.2
[2020-09-14] MEDS ORDERED: fentaNYL (PF) 50 MCG/ML 2 ML AMP ONE (07:00)
[2020-09-14] MEDS ORDERED: MIDAZOLAM 2 MG/2 ML VIAL ONE (07:00)
[2020-09-14] MEDS ORDERED: LACTATED RINGERS 1,000 ML IV ONE (07:01)
[2020-09-14] MEDS ORDERED: methylPREDNISolone ACETATE 40 MG/ML 1 ML VIAL ONE (07:03)
[2020-09-14] MEDS ORDERED: ROPIVACAINE 5MG/ML 20ML VIAL ONE (07:03)
--- NOTE | 2020-09-14 07:36 | P.PCN ---
Date of Procedure: 09/14/20 Procedure(s) Performed: PREOPERATIVE DIAGNOSIS: 1-Lumbar Spondylosis with Facet Arthropathy without myelopathy. 2- Lumber degenerative disc disease. POSTOPERATIVE DIAGNOSIS: 1- Lumbar Spondylosis with Facet Arthropathy without myelopathy. 2- Lumber degenerative disc disease. PROCEDURES : Bilateral Radiofrequency thermocoagulation, L3 , L4 , and L5 medial branch, with fluoroscopic guidance (fluoroscopy images available in the radiology department) ( to denervate the facet joint atbilateral L4-5 ,and L5- S1 levels ). ANESTHESIA: monitered anesthesia care as per anesthesia department . EBL: Minimal PROCEDURE INDICATION: The patient with low back pain secondary to lumbar facet arthropathy who had more than 50% relief of her pain with previous diagnostic lumbar medial branch block with bupivacaine. PROCEDURE DESCRIPTION / TECHNIQUE: The patient was seen and identified in the preoperative area. Risks, benefits, complications, including but not limited to risk of infection ,bleeding , allergic reactions to the medications and no complete pain releife , and alternatives were discussed with the patient, the patient agreed to proceed with the procedure and signed the consent. IV was started. Vital signs remained stable throughout the procedure. Patient was taken to the OR and time out was completed. The patient was placed in the prone position on the procedure table. The lumber area was prepped and draped in the usual sterile fashion. . Vital signs were closely monitored during the procedure .IV sedation was used during the procedure to decrease patients anxiety. Using AP and then oblique fluoroscopy, the ``eye of the Keon dog co rresponding to the connection between the superior and transverse articular processes of right L3, L4, and L5 were identified, marked, and localized with 1% lidocaine. Subsequently, a 18 [id number] radiofrequency cannula with a 10- mm active tip was advanced guided by fluoroscopy to each of the``eyes of the Keon dog at right L3, L4, and L5. Each site then underwent sensory testing at 50 Hz and 0 to 1 volt and motor testing at 2.5 Hz and 0 to 3 volt with local stimulation, but no radicular symptoms down the legs. Thereafter each sites underwent radiofrequency thermocoagulation at 80 degrees celsius for 90 seconds after injecting 0.5 ml of PF Ropivacaine 1ml, then after the thermocoagulation done , 1 ml of the block solution containing Depo-Medrol 20 mg and 3 ml of Ropivacaine 0.5% was injected at the right L3 , L4 , and L5 , levels after negative aspiration of CSF and blood and with no paresthesias. Cannulas were retracted while injecting lidocaine 1% until the needle is out. The same procedure was repeated at the level of Left L3, L4, and L5 levels. At the end of the procedure, the skin was cleansed and bandages were applied. COMPLICATIONS: No acute complications. DISPOSITION / PLANS: The patient was placed in a supine position and transferred to the recovery area in a stable condition for observation and was discharged from the recovery room after meeting discharge criteria. Home discharge instructions given to the patient by the staff. The patient was reexamined prior to discharge. The patient will schedule a follow up in the clinic in 2-4 weeks.
[2020-09-14] MEDS ORDERED: IV FLUID CONTINUATION 300 ML IV ONE (07:39)
[2020-09-14] MEDS ORDERED: LACTATED RINGERS 1,000 ML IV SCH (07:47)
[2020-09-14 07:56] VITALS: BP 124/76; PULSE 63
--- NOTE | 2020-09-14 12:11 | FL ---
Fluoroscopy INDICATION: Pain FINDINGS: Fluoroscopy time: 37 seconds. Images obtained: 7. IMPRESSIONS: 1. Documentation of fluoroscopy.
== END 2020-09-14 08:10 | disposition home or self-care (01) ==
LOC: ORPAIN 06:24
PROVIDERS: ATTEND Specialist
DX: G89.29 Other chronic pain (principal); M47.816 Spondylosis without myelopathy or radiculopathy, lumbar region; M51.36 Other intervertebral disc degeneration, lumbar region; I10 Essential (primary) hypertension; Z79.1 Long term (current) use of non-steroidal anti-inflammatories (NSAID); Z79.899 Other long term (current) drug therapy
CPT/HCPCS: 64635; 64636; J2250; J1030; J3010; J2795

== ENCOUNTER → 2020-10-08 | Outpatient (CLI) | payer OTHER ==
[2020-10-08 10:29] VITALS: BP 125/79; PULSE 58; RESP 18; TEMP 97.7
--- NOTE | 2020-10-08 10:59 | P.PN ---
Subjective Progress Note Date: 10/08/20 This is follow-up visits. This 60 years old male with a chronic history of severe low back pain, he is diagnosed with lumbar degenerative disc disease and lumbar spondylosis with lumbar facet arthropathy, last month we have done are free of the medial branch lumbar area, reported that his low back pain improved significantly, his activity improved, he does not use any pain medication, he denies any motor or sensory deficit, he reported that he had a couple of episodes of muscle spasm in the lumbar area, lasted only for very short period of time, improved after he took a muscle relaxant, and today he has no motor or sensory deficit, he has no radicular pain Objective - Vital Signs Vital signs: Vital Signs Temp 97.7 F 10/08/20 10:24 Pulse 58 L 10/08/20 10:24 Resp 18 10/08/20 10:24 BP 125/79 10/08/20 10:24 Pulse Ox 98 10/08/20 10:24 Intake & Output 10/07/20 10/08/20 10/08/20 18:59 06:59 18:59 Weight 84.822 kg - Exam Physical Examinations : -Constitutiona : Cooperative , not in acute distress . -HEENT : nech : supple , no Lymphadenopathy , normal thyroid size . : eyes : no ptosis , no icterus, no photophobia . - neurologic : Cranial nerve II to XII intact , no focal neurological deffecit . -psychatric : alert , oriented X 3 , appropriate affect , intact judgment and insight . -Lymphatic : no Lymphadenopathy . - musculoskeltal : Cervical Spine motor stregnth in the deltoid and biceps, normal right side , normal Left side motor stregnth biceps and the wrist extensors normal right side ,normal left side . motor stregnth in the triceps muscle . normal Right side , normal Left side Lumber spine moter stegnth lower extremities ,thigh and legs 5/5 Right side , 5/5 Left side Assessment and Plan Plan: Assessment and plan=1-lumbar spondylosis with lumbar facet arthropathy without myelopathy. 2-lumbar degenerative disc disease. Pain improved after RFA medial branch lumbar area , patient will follow up when necessary. - PQRS measures = - Patient's medications are documented in the chart. -Tobacco use is negative and counseling.Given. -Patient's has not received pneumococcal vaccine. -Advanced care planning discussed, patient not eligible. -Opiate contract not signed. -Pain positive and follow-up visit/procedure is scheduled. -Patient's blood pressure measured [ 125/79 ] , and documented in the record ,and patient will follow up with the primary care. -Patient's weight was measured and body mass index [ 25.4 ] above the normal limits and counseling was done. and patient instructed to follow-up with the primary care physician. -Patient was not identified as an unhealthy alcohol user Time with Patient: Less than 30
== END | disposition home or self-care (01) ==
LOC: PNWHC3 10:06
PROVIDERS: ATTEND Specialist
DX: M51.36 Other intervertebral disc degeneration, lumbar region (principal); M47.816 Spondylosis without myelopathy or radiculopathy, lumbar region; M46.96 Unspecified inflammatory spondylopathy, lumbar region
CPT/HCPCS: 99211

== ENCOUNTER → 2021-01-07 | Outpatient (CLI) | payer OTHER ==
[2021-01-07 09:54] VITALS: BP 128/80; PULSE 77; RESP 18
--- NOTE | 2021-01-07 10:06 | P.PN ---
Subjective Progress Note Date: 01/07/21 This is followed with for this 60 years old male with a chronic history of low back pain is diagnosed with lumbar spondylosis with lumbar facet arthropathy and lumbar degenerative disc disease, it is clearly would have done RFA of the medial branch Lumber area, and he is complaining of severe neck pain with numbness and tingling sensation in the upper extremity, mostly at the medial aspect of the upper extremity Bilaterally, illness and pain in the upper extremity is constant and increases with any activity, he denies any motor or sensory deficits he denies any fever or night sweats,, continue to use meloxicam and he tried physical therapy and is doing stretches and home exercises every day, with minimal benefit Objective - Vital Signs Vital signs: Vital Signs Temp Pulse 77 01/07/21 09:50 Resp 18 01/07/21 09:50 BP 128/80 01/07/21 09:50 Pulse Ox 98 01/07/21 09:50 - Exam Physical Examinations : -Constitutiona : Cooperative , not in acute distress . -HEENT : nech : supple , no Lymphadenopathy , normal thyroid size . : eyes : no ptosis , no icterus, no photophobia . - neurologic : Cranial nerve II to XII intact , no focal neurological deffecit . -psychatric : alert , oriented X 3 , appropriate affect , intact judgment and insight . -Lymphatic : no Lymphadenopathy . - musculoskeltal : Cervical Spine motor stregnth in the deltoid and biceps, normal right side , normal Left side motor stregnth biceps and the wrist extensors normal right side ,normal left side . motor stregnth in the triceps muscle . normal Right side , normal Left side deep tendon reflexes normal at the b iceps , normal at Brachioradialis , normal at triceps. cervical facet loading test: Positive Bilaterally Spurling test= positive Right , positive left. Neck distraction test= positive Right , positive left. Diana sign= positive right, positive left . Dysesthesia in the medial aspect of the upper extremity bilaterally Lumber spine moter stegnth lower extremities ,thigh and legs 5/5 Right side , 5/5 Left side MRI of the cervical spine multilevel cervical foraminal stenosis at C3 4 and C5 6 and C6 7, multi level cervical degenerative disc disease Assessment and Plan Plan: Assessment and plan=1-cervical foraminal stenosis. 2-cervical degenerative disc disease. 3-lumbar spondylosis with lumbar facet arthropathy. 4-LUmber degenerative disc disease. Patient could benefit from cervical epidural steroid injection at C6 7 leve - PQRS measures = - Patient's medications are documented in the chart. -Tobacco use is negative and counseling.Given. -Patient's has not received pneumococcal vaccine. -Advanced care planning discussed, patient not eligible. -Opiate contract not signed. -Pain positive and follow-up visit/procedure is scheduled. -Patient's blood pressure measured [128/80 ] , and documented in the record ,and patient will follow up with the primary care. -Patient's weight was measured and body mass index [ ] above the,normal limits and counseling was done. and patient instructed to follow-up with the primary care physician. -Patient was not identified as an unhealthy alcohol user Time with Patient: Less than 30
== END | disposition home or self-care (01) ==
LOC: PNWHC3 09:21
PROVIDERS: ATTEND Specialist
DX: M50.30 Other cervical disc degeneration, unspecified cervical region (principal); M48.02 Spinal stenosis, cervical region; M47.896 Other spondylosis, lumbar region; M51.36 Other intervertebral disc degeneration, lumbar region
CPT/HCPCS: 99211

== ENCOUNTER 2021-02-12 08:28 | Day surgery (SDC) | payer OTHER ==
[2021-02-11 10:32] VITALS: BMI 25.0
[2021-02-12 08:55] VITALS: TEMP 96.4
[2021-02-12] MEDS ORDERED: IOPAMIDOL M200 10 ML VIAL ONE (09:29)
[2021-02-12] MEDS ORDERED: MIDAZOLAM 2 MG/2 ML VIAL ONE (09:29)
[2021-02-12] MEDS ORDERED: fentaNYL (PF) 50 MCG/ML 2 ML AMP ONE (09:29)
[2021-02-12] MEDS ORDERED: DEXAMETHASONE SOD PHOSPHATE 10 MG/ML 1 ML VIAL ONE (09:29)
--- NOTE | 2021-02-12 09:42 | P.PCN ---
Date of Procedure: 02/12/21 Procedure(s) Performed: . PROCEDURE 1. Cervical epidural steroid injection under fluoroscopic guidance, C6-7 (fluoroscopy images available in the radiology department ) 2. Cervical epidurogram. PREOPERATIVE DIAGNOSIS: 1- Cervical Degenerative Disc Diseases 2- Cervical foraminal stenosis POSTOPERATIVE DIAGNOSIS: : 1- Cervical Degenerative Disc Diseases , 2- Cervical foraminal stenosis ANESTHESIA: Local anesthesia with lidocaine 1 % , and moderate sedation, with Versed 2 mg and Fentanyl 100 mcg. EBL 0 PROCEDURE INDICATION: The patient with neck pain and radiculitis unresponsive to conservative treatment consents for procedure. PROCEDURE DESCRIPTION / TECHNIQUE: The patient was seen and identified in the preoperative area. Risks, benefits, complications, including but not limited to infections ,bleeding , allergic reactions to the medications ,and not complete pain releife, and alternatives were discussed with the patient, the patient agreed to proceed with the procedure and signed the consent. Patient was taken to the OR and time out was completed. The patient was placed in the prone position on the procedure table. A pillow was placed under the patients chest to increase the cervical interlaminar space. The cervical area was prepped and draped in the usual sterile fashion. Vital signs were closely monitored during the procedure. Conscious sedation was used during the procedure to decrease patients anxiety. Using anterior-posterior fluoroscopy, the C6-7 interlaminar space was identified and the skin over this site was marked and then infiltrated with 1% lidocaine subcutaneously. Subsequently, a 20-gauge 3-1/2-inch Tuohy epidural needle was inserted and advanced toward the epidural space by means of the ``hanging-drop technique and guided by AP and lateral fluoroscopy. The correct needle position in the epidural space was verified with the injection of 2 mL of the water soluble contrast dye Isovue-200 and observing an excellent epidurogram with the epidural spread of the dye, after negative aspiration for blood and CSF and in the absence of paresthesias. then, mixture containing 20 mg Dexamethasone and 2 ml of preservative-free normal saline injected and a washout of epidurogram was seen. Needle was withdrawn intact, skin was cleansed, and bandages were applied. Complications= none. Disposition= patient was placed in supine position and transferred to the recovery room area in stable condition and there was no evidence of upper or l ower extremity motor or sensory deficit after the procedure patient was discharged from recovery room after discharge criteria met and home discharge instructions was given by the staff and patient will follow with the pain clinic in 2-4 weeks
[2021-02-12] MEDS ORDERED: IV FLUID CONTINUATION 1,000 ML IV ONE (09:52)
[2021-02-12 09:55] VITALS: RESP 18
--- NOTE | 2021-02-12 09:58 | FL ---
EXAMINATION TYPE: FL guided pain mgmt statistic DATE OF EXAM: 02/12/2021 CLINICAL HISTORY: Neck pain. TECHNIQUE: Fluoroscopy. COMPARISON: None. FINDINGS: Fluoroscopic guidance was provided during pain relief procedure performed by Dr. Beatty . A total of 1 second of fluoroscopic time was utilized during the procedure and one spot image is a cquired. Single image acquired shows needle localization at C6-C7 level with contrast injection. IMPRESSION: As Above.
[2021-02-12 10:10] VITALS: BP 122/75; PULSE 78
== END 2021-02-12 10:25 | disposition home or self-care (01) ==
LOC: ORPAIN 08:28
PROVIDERS: ATTEND Specialist
DX: M48.02 Spinal stenosis, cervical region (principal); F41.9 Anxiety disorder, unspecified
CPT/HCPCS: 62321; J2250; J1100; J3010; Q9966

== ENCOUNTER → 2021-06-03 | Outpatient (CLI) | payer OTHER ==
[2021-06-03 14:10] VITALS: BP 144/85; PULSE 76; RESP 18; TEMP 98.6
--- NOTE | 2021-06-03 14:21 | P.PN ---
Subjective Progress Note Date: 06/03/21 Principal diagnosis: A 60 yr old male with a history of severe and chronic neck pain secondary to cervical disc disease, spondylosis with facet arthropathy presents today for evaluation s/p JOE C6-C7 #1. Pt states he [id number] 90% pain relief x 1 month s/p procedure. He did not timely return to the clinic for evaluation for high risk covid concerns. Pain level today is 2/10 in intensity but escalates as high as 8/10 in intensity with extension, rotation of the cervical spine or worse in the mornings. Pain radiates towards the right head and neck regions. Pain is alleviated with medications, injections, heat, physical therapy of which he currently participates in, chiropractic treatments twice a month on & off over 2020, home based stretching regimen, repositioning and rest. Interventional pain procedures completed include JOE C6-C7 #1 Patient is currently on OTC Tylenol Patient denies any side effects of the medication(s), denies excessive drowsiness or sleepiness, denies suicidal ideation and reports that the current pain medication is helping to control the pain and improve activities of daily living. Patient denies any motor or sensory deficits. Patient denies any fever or night sweats, denies any change in the bowel movements or urination. Physical Examination: -Constitutional: Cooperative. Not in acute distress . -HEENT: Neck is supple. No lymphadenopathy. No thyromegaly. Normal thyroid size. Eyes: No ptosis , no icterus, no photophobia. ENT: No auditory deficits. Normal oropharynx. No Thrush. - Respiratory: Chest clear to auscultations bilaterally. No wheezing. No rhonchi. - Cardiovascular: Regular rate and rhythm. S1 / S2 , no S3 , no S4. - Gastrointestinal: Abdomen soft no tenderness. Bowel sounds positive in all four quadrants. No organomegaly. - Genitourinary: Deferred. - Neurologic: Cranial nerve II to XII intact. No focal neurological deficits. - Psychatric: Alert & oriented x 3. Matching mood & appropriate affect. Judgment and insight intact. - Lymphatic: No Lymphadenopathy. - Musculoskeletal: Cervical spine: Muscle bulk/ tone/ strength in the bilateral upper extremities normal. Vertebral body tenderness to palpation over C6 Facet loading test cervical area positive. Lumbar spine: Motor bulk/ tone/ strength lower extremities , thigh and legs : 5/5 Deep tendon reflexes : Normal Knee Jerk. Normal Ankle Jerk . Vertebral body tenderness to palpation over Lumbar Facet Loading Test positive Straight Leg Raise: positive at 30 degrees right side/ left side Gaenslen's Test positive Sacral spine : Severe tenderness over the Sacroiliac joint: right side / left side Range of motion: Flexion of the lumbar spine <60 degrees Range of motion: Extension of the lumbar spine <20 degrees Gaenslen's Test positive April test: positive right side / left side Assessment and plan: Chronic low back pain secondary to lumbar degenerative disc disease , lumbar spondylosis with facet arthropathy without myelopathy Recommendation of JOE C6-C7 #2. May need a series of 3, within a six- month period, left to reach optimal pain relief. Risks, benefits of procedure discussed and pt verbalized understanding. Denies anti coagulant use. Denies medical history of diabetes mellitus. All patient questions answered MAPS reviewed and it was appropriate. I have spent 31 minutes on patient care today. Dr Beatty was available by phone for the evaluation of this patient. The time was used to review the medical records including relevant urine studies and Prescription history (MAPs), review of the available imaging, evaluation and examination of the patient, coordination of care with the medical staff and if applicable referring physicians, as well as creation of the medical record Objective - Vital Signs Vital signs: Vital Signs Temp 98.6 F 06/03/21 14:03 Pulse 76 06/03/21 14:03 Resp 18 06/03/21 14:03 BP 144/85 06/03/21 14:03 Pulse Ox 99 06/03/21 14:03 Intake & Output 06/02/21 06/03/21 06/03/21 18:59 06:59 18:59 Weight 83.915 kg PQRS Measure Charge Sheet Mode of Arrival: Ambulatory - Pain Location Right Neck Non-Pharmacological Interventions: Chiropractic Treatment, Heat, Home Exercise, Inactivity, Massage, Physical Therapy, Position/Reposition, Stretching Pharmacological Interventions: Epidural PQRS Narrative: Smoking Status Never smoker Blood Pressure 144/85 Pain Intensity [Right Neck] 2 Scale Used Numeric (1 - 10) Hx Alcohol Use (MH) No Home Medications: Ambulatory Orders Venlafaxine HCl [Effexor XR] 225 mg PO QAM 06/08/18 clonazePAM [KlonoPIN] 1 mg PO QAM 06/08/18 lisinopriL [Zestril] 5 mg PO DAILY 08/16/18 Meloxicam [Mobic] 15 mg PO DAILY 10/26/19 Multivitamins, Thera [Multivitamin (formulary)] 1 tab PO DAILY 05/14/20
== END | disposition home or self-care (01) ==
LOC: PNWHC3 13:41
PROVIDERS: ATTEND Physician Assistant Medical
DX: M47.896 Other spondylosis, lumbar region (principal); M51.36 Other intervertebral disc degeneration, lumbar region
CPT/HCPCS: 99211

== ENCOUNTER 2021-07-11 06:21 | Day surgery (SDC) | payer OTHER ==
[2021-07-10 08:35] VITALS: BMI 25.2
[2021-07-11 06:49] VITALS: RESP 16; TEMP 97.6
[2021-07-11] MEDS ORDERED: IOPAMIDOL M200 10 ML VIAL ONE (06:59)
[2021-07-11] MEDS ORDERED: DEXAMETHASONE SOD PHOSPHATE 10 MG/ML 1 ML VIAL ONE (06:59)
[2021-07-11] MEDS ORDERED: LACTATED RINGERS 1,000 ML IV SCH (07:00)
--- NOTE | 2021-07-11 07:22 | P.PCN ---
Date of Procedure: 07/11/21 Description of Procedure: Pre- and Post-operative Diagnosis: Cervical radiculopathy Procedure: C6-C7 Inter-Laminar Cervical Epidural Steroid Injection under biplanar fluoroscopy Surgeon: Kiara Galeano Anesthesia: Local: 1% Lidocaine, IV sedation : None. Complications: None. Estimated blood loss: None Specimens removed: None Fluoroscopic image: saved to electronic medical records. Indications for Procedure: The patient has been suffering from neck pain and pain radiating to the upper extremity. Patient had previous cervical epidural with more than 80% pain relief for 6 weeks duration. Inadequate pain control with pharmacologic regimen. An inter-laminar approach cervical epidural steroid injection was scheduled for the patient. Procedure and Findings: The patient was seen and examined in the holding area. The written informed consent was obtained after explaining the risks, benefits, alternatives of the procedure to the patient. The patient was brought to the procedure room and was placed in the prone position on the operating table. A pillow was placed under the upper chest. Standard anesthesia monitoring was done through out the procedure. Timeout was completed. The skin preparation was done with ChloraPrep 1 and draping was done in usual sterile fashion. Sterile technique was observed throughout the procedure. Under fluoroscopic guidance, the C6-C7 inter-laminar space was identified. 3 ml of 1% Lidocaine was injected with a 25 gauge needle to achieve adequate local anesthesia of the skin and subcutaneous tissue. A 20 gauge, 3.5 inch Tuohy type epidural needle was placed and gradually advanced up to the epidural space using loss of resistance technique and fluoroscopic guidance. Lateral, oblique fluoroscopic views confirm the needle position. No paresthesia was noted. A negative aspiration was confirmed and then 1 ml of Isovue-200 was injected. A good dye spread was seen in the epidural space and it was negative for any intrathecal, intraneural or intravascular spread. A total of 6 ml solution containing 20 mg Dexamethasone, and 4 ml preservative-free Normal Saline was injected slowly with intermittent aspiration. The needle was removed intact, area was cleaned and bandage was applied. Disposition : The patient tolerated the procedure very well. The patient was transferred to the recovery room and remained stable until discharged home. The patient was given detailed discharge instructions for bleeding, infection, increased pain at the injection site, and was advised to seek immediate medical attention should significant side effects develop. The patient will be followed up with our Pain Clinic within 4 weeks for follow-up visit.
[2021-07-11 07:28] VITALS: PULSE 70
[2021-07-11 07:45] VITALS: BP 131/86
--- NOTE | 2021-07-11 09:11 | FL ---
EXAMINATION TYPE: FL guided pain mgmt statistic DATE OF EXAM: 07/11/2021 FLUOROSCOPY Fluoroscopy time of 14 seconds was used during cervical epidural injection. 2 image/s document/s the procedure.
== END 2021-07-11 07:55 | disposition home or self-care (01) ==
LOC: ORPAIN 06:21
DX: M54.12 Radiculopathy, cervical region (principal); I10 Essential (primary) hypertension; M19.90 Unspecified osteoarthritis, unspecified site; Z79.899 Other long term (current) drug therapy; Z98.890 Other specified postprocedural states
CPT/HCPCS: 62321; J1100; Q9966

== ENCOUNTER 2021-09-17 07:45 | Day surgery (SDC) | payer OTHER ==
[2021-09-16 11:37] VITALS: BMI 25.0
[~2021-09-17 07:45] MED LIST changes: +LIDOCAINE 1% (10MG/ML) FOR IV START INTRADERMA PRN
[2021-09-17 08:02] VITALS: RESP 18; TEMP 97.6
[2021-09-17] MEDS ORDERED: IOPAMIDOL M200 10 ML VIAL ONE (09:14)
[2021-09-17] MEDS ORDERED: DEXAMETHASONE SOD PHOSPHATE 10 MG/ML 1 ML VIAL ONE (09:14)
--- NOTE | 2021-09-17 09:44 | P.PCN ---
Date of Procedure: 09/17/21 Procedure(s) Performed: PREOPERATIVE DIAGNOSIS: 1-Cervical radiculopathy . 2-cervical foraminal stenosis. 3-cervical degenerative disc disease POSTOPERATIVE DIAGNOSIS: Same as preoperative diagnoses. PROCEDURE 1. Transforaminal epidural steroid injection under fluoroscopic guidance at right C6-7 level. (Fluoroscopy images stored on file in the radiology Department ) 2. cervical epidurogram . ANESTHESIA: Local with 1% lidocaine 3 ml only. EBL: Minimal PROCEDURE INDICATION: The patient with neck pain and radiculopathy symptoms unresponsive to conservative treatment. PROCEDURE DESCRIPTION / TECHNIQUE: The patient was seen and identified in the preoperative area. Risks, benefits, complications, and alternatives were discussed with the patient. The patient agreed to proceed with the procedure and signed the consent. and vital signs were stable. Patient was taken to the OR and time out was completed. The patient was placed in the lateral position ( Rt side up ) on procedure table . The right cervical area was prepped and draped in the usual sterile fashion. Critical pause was taken. Vital signs were closely monitored during the procedure. Conscious sedation was used during the procedure to decrease patient s anxiety. Using oblique fluoroscopy, the cervical area of C6 7 identified then the foraminal of C6-7 visualize, and then, the skin and deeper tissues just below was localized with 1% lidocaine. Subsequently, a 25-gauge 3.5-inch spinal needle was advanced under a tunneled view fluoroscopic guidance just underneath the chin of the ``Keon dog at the right C6-7 Under lateral fluoroscopy, the needle was then advanced to the posterior border of the interforaminal space. After negative aspiration of CSF and blood and with no paresthesias, 1 mL Isovue 200 contrast dye was injected excellent epidurogram and outlining of the nerve root Subsequently, 2 mL of block solution containing 20 mg Dexamethasone PF was injected. Needle was removed . At the end of the procedure, skin was cleansed, and bandages were applied. COMPLICATIONS:none DISPOSITION / PLANS: The patient was placed in a supine position and transferred to the recovery area in a stable condition for observation. There was no evidence of lower extremity motor or sensory deficit after the procedure. Patient was discharged from the recovery room after meeting discharge criteria. Home discharge instructions were given to the patient by the staff. The patient was reexamined prior to discharge.
[2021-09-17 09:50] VITALS: BP 144/81; PULSE 70
--- NOTE | 2021-09-17 14:17 | FL ---
EXAMINATION TYPE: FL guided pain mgmt statistic DATE OF EXAM: 09/17/2021 HISTORY: Fluoroscopy time 24 seconds of fluoroscopy provided. IMPRESSION: 1. Fluoroscopy time.
== END 2021-09-17 10:03 | disposition home or self-care (01) ==
LOC: ORPAIN 07:45
PROVIDERS: ATTEND Specialist
DX: M50.123 Cervical disc disorder at C6-C7 level with radiculopathy (principal); M48.02 Spinal stenosis, cervical region
CPT/HCPCS: 64479; J1100; Q9966; 64483

== ENCOUNTER → 2021-10-09 | Outpatient (CLI) | payer OTHER ==
[2021-10-09 10:15] VITALS: BP 126/75; PULSE 77; RESP 18; TEMP 98.6
--- NOTE | 2021-10-09 10:30 | P.PAINPG ---
Objective - Vital Signs Vital signs: Vital Signs Temp 98.6 F 10/09/21 10:11 Pulse 77 10/09/21 10:11 Resp 18 10/09/21 10:11 BP 126/75 10/09/21 10:11 Pulse Ox 98 10/09/21 10:11 FiO2 Intake & Output 10/08/21 10/09/21 10/09/21 18:59 06:59 18:59 Weight 82.554 kg PQRS Measure Charge Sheet Mode of Arrival: Ambulatory Comment: A 61 yr old male with a history of severe and chronic low back pain secondary to lumbar degenerative disc diseases and lumbar spondylosis with facet arthropathy presents today for evaluation s/p R TFESI C6-C7. 100% pain relief s/p procedure. Pain level is currently at 0/10. Pain is provoked by activity but only on the R elbow . Pain is alleviated with medications (Mobic), heat, ice., PT integrated with massage ended July 1999, repositioning and rest. Interventional pain procedures completed include R TFESI C6-C7 Patient is currently on Mobic Patient denies any side effects of the medication(s), denies excessive drowsiness or sleepiness, denies suicidal ideation and reports that the current pain medication is helping to control the pain and improve activities of daily living. Patient denies any motor or sensory deficits. Patient denies any fever or night sweats, denies any change in the bowel movements or urination. Physical Examination: -Constitutional: Cooperative. Not in acute distress . - Neurologic: Cranial nerve II to XII intact. No focal neurological defici ts. - Psychatric: Alert & oriented x 3. Matching mood & appropriate affect. Judgment and insight intact. - Musculoskeletal: Cervical spine: Muscle bulk/ tone/ strength in the bilateral upper extremities normal Vertebral body tenderness to palpation over Spurling test positive Distraction test positive Facet loading test positive Thoracic spine Muscle bulk / tone/ strength in the bilateral paraspinal muscles normal Vertebral body tender to palpation over Facet loading test positive Lumbar spine: Motor bulk/ tone/ strength lower extremities , thigh and legs : 5/5 Deep tendon reflexes : Normal Knee Jerk. Normal Ankle Jerk . Vertebral body tenderness to palpation over Lumbar Facet Loading Test positive Straight Leg Raise: positive at 30 degrees right side/ left side Gaenslen's Test positive Sacral spine : Severe tenderness over the Sacroiliac joint: right side / left side Range of motion: Flexion of the lumbar spine <60 degrees Range of motion: Extension of the lumbar spine <20 degrees Gaenslen's Test positive Freddie's Test positive April test: positive right side / left side Thigh Thrust Test Sacral Thrust Test Assessment and plan: Chronic low back pain secondary to lumbar degenerative disc disease , lumbar spondylosis with facet arthropathy without myelopathy Pt received sufficient and optimal pain relief s/p procedure. He will follow home pain mgmt modifying factors and may return to our clinic on an as needed basis. All patient questions answered I have spent less than 30 minutes on patient care today. Dr Beatty was available by phone for the evaluation of this patient. The time was used to review the medical records including relevant urine studies and Prescription history (MAPs), review of the available imaging, evaluation and examination of the patient, coordination of care with the medical staff and if applicable referring physicians, as well as creation of the medical record - Pain Location Neck Non-Pharmacological Interventions: Chiropractic Treatment, Heat, Home Exercise, Ice, Inactivity, Massage, Physical Therapy, Stretching Pharmacological Interventions: Epidural, PRN Medication PQRS Narrative: Smoking Status Never smoker Blood Pressure 126/75 Pain Intensity [Neck] 0 Scale Used Numeric (1 - 10) Hx Alcohol Use (MH) No Home Medications: Ambulatory Orders Venlafaxine HCl [Effexor XR] 225 mg PO QAM 06/08/18 clonazePAM [KlonoPIN] 1 mg PO QAM 06/08/18 lisinopriL [Zestril] 5 mg PO DAILY 08/16/18 Meloxicam [Mobic] 15 mg PO DAILY 10/26/19 Multivitamins, Thera [Multivitamin (formulary)] 1 tab PO DAILY 05/14/20 Controlled Substance Measures - Controlled Substance Measures Is patient prescribed a controlled substance at discharge?: No
== END ==
LOC: PNWHC3 09:55
PROVIDERS: ATTEND Specialist
DX: M51.36 Other intervertebral disc degeneration, lumbar region (principal); M47.816 Spondylosis without myelopathy or radiculopathy, lumbar region; G89.29 Other chronic pain
CPT/HCPCS: 99211

== ENCOUNTER → 2022-02-17 | Outpatient (CLI) | payer OTHER ==
[2022-02-17 12:10] VITALS: BP 144/91; PULSE 77; RESP 18; TEMP 98
--- NOTE | 2022-02-17 14:50 | P.PAINPG ---
PQRS Measure Charge Sheet Comment: A 61 yr old male with a history of severe and chronic neck pain secondary to cervical DDD and spondylosis with facet arthropathy without myelopathy presents today for R sided neck pain. Prior R TFESI C6-7 exhibited 100% pain relief x 5 mo s/p procedure. Pain level is currently at 6/10 in intensity, constant, localized in the lower cervical spine, tight/ stiff in character w shooting up towards the spine. Pain is provoked by hyperextension. Pain is alleviated with PT x 6 wks in July 2021, chiropractic treatments weekly currently for years, heat, ice, medications, use of a traction device at home, repositioning and rest. Interventional pain procedures completed include R TFESI C6-C7 Patient is currently on name unknown to pt Patient denies any side effects of the medication(s), denies excessive drowsiness or sleepiness, denies suicidal ideation and reports that the current pain medication is helping to control the pain and improve activities of daily living. Patient denies any motor or sensory deficits. Patient denies any fever or night sweats, denies any change in the bowel movements or urination. Physical Examination: -Constitutional: Cooperative. Not in acute distress . - Neurologic: Cranial nerve II to XII intact. No focal neurological deficits. - Psychatric: Alert & oriented x 3. Matching mood & appropriate affect. Judgment and insight intact. - Musculoskeletal: Cervical spine: Muscle bulk/ tone/ strength in the bilateral upper extremities normal Vertebral body tenderness to palpation over C6 Spurling test positive Distraction test positive Facet loading test positive Thoracic spine Muscle bulk / tone/ strength in the bilateral paraspinal muscles normal Vertebral body tender to palpation over Facet loading test positive Lumbar spine: Motor bulk/ tone/ strength lower extremities , thigh and legs : 5/5 Deep tendon reflexes : Normal Knee Jerk. Normal Ankle Jerk . Vertebral body tenderness to palpation over Lumbar Facet Loading Test positive Straight Leg Raise: positive at 30 degrees right side/ left side Gaenslen's Test positive Sacral spine : Severe tenderness over the Sacroiliac joint: right side / left side Range of motion: Flexion of the lumbar spine <60 degrees Range of motion: Extension of the lumbar spine <20 degrees Gaenslen's Test positive April test: positive right side / left side Thigh Thrust Test Sacral Thrust Test Assessment and plan: Chronic neck pain secondary to cervical degenerative disc disease, spondylosis with facet arthropathy without myelopathy Recommendation of R TFESI C6-C7 #2. May need a series of injections, up to 4 within a 12 month period, for optimal pain relief. Risks, benefits of procedure discussed and pt verbalized understanding. Denies anticoagulant use or medical history of diabetes. All patient questions answered I have spent less than 30 minutes on patient care today. Dr Beatty was available by phone for the evaluation of this patient. The time was used to review the medical records including relevant urine studies and Prescription history (MAPs), review of the available imaging, evaluation and examination of the patient, coordination of care with the medical staff and if applicable referring physicians, as well as creation of the medical record PQRS Narrative: Smoking Status Never smoker Hx Alcohol Use (MH) No Home Medications: Ambulatory Orders Venlafaxine HCl [Effexor XR] 225 mg PO QAM 06/08/18 clonazePAM [KlonoPIN] 1 mg PO QAM 06/08/18 lisinopriL [Zestril] 5 mg PO DAILY 08/16/18 Meloxicam [Mobic] 15 mg PO DAILY 10/26/19 Multivitamins, Thera [Multivitamin (formulary)] 1 tab PO DAILY 05/14/20 Controlled Substance Measures - Controlled Substance Measures Is patient prescribed a controlled substance at discharge?: No
== END ==
LOC: PNWHC3 10:33
PROVIDERS: ATTEND Specialist
DX: M47.812 Spondylosis without myelopathy or radiculopathy, cervical region (principal); M50.30 Other cervical disc degeneration, unspecified cervical region; G89.29 Other chronic pain
CPT/HCPCS: 99211

== ENCOUNTER 2022-03-25 07:26 | Day surgery (SDC) | payer OTHER ==
[2022-03-21 10:10] VITALS: BMI 24.7
[2022-03-25 07:44] VITALS: RESP 16; TEMP 97.2
[2022-03-25] MEDS ORDERED: DEXAMETHASONE SOD PHOSPHATE 10 MG/ML 1 ML VIAL ONE (08:11)
[2022-03-25] MEDS ORDERED: IOPAMIDOL M200 10 ML VIAL ONE (08:11)
--- NOTE | 2022-03-25 08:26 | P.PCN ---
Date of Procedure: 03/25/22 Procedure(s) Performed: PREOPERATIVE DIAGNOSIS: 1-Cervical radiculopathy . 2-cervical foraminal stenosis. 3-cervical degenerative disc disease POSTOPERATIVE DIAGNOSIS: Same as preoperative diagnoses. PROCEDURE 1. Transforaminal epidural steroid injection under fluoroscopic guidance at right C6-7 level. (Fluoroscopy images stored on file in the radiology Department ) 2. cervical epidurogram . ANESTHESIA: Local with 1% lidocaine 3 ml only. EBL: Minimal PROCEDURE INDICATION: The patient with neck pain and radiculopathy symptoms unresponsive to conservative treatment. PROCEDURE DESCRIPTION / TECHNIQUE: The patient was seen and identified in the preoperative area. Risks, benefits, complications, and alternatives were discussed with the patient. The patient agreed to proceed with the procedure and signed the consent. and vital signs were stable. Patient was taken to the OR and time out was completed. The patient was placed in the lateral position ( Rt side up ) on procedure table . The right cervical area was prepped and draped in the usual sterile fashion. Critical pause was taken. Vital signs were closely monitored during the procedure. Conscious sedation was used during the procedure to decrease patient s anxiety. Using oblique fluoroscopy, the cervical area of C6 7 identified then the foraminal of C6-7 visualize, and then, the skin and deeper tissues just below was localized with 1% lidocaine. Subsequently, a 25-gauge 3.5-inch spinal needle was advanced under a tunneled view fluoroscopic guidance just underneath the chin of the ``Keon dog at the right C6-7 Under lateral fluoroscopy, the needle was then advanced to the posterior border of the interforaminal space. After negative aspiration of CSF and blood and with no paresthesias, 1 mL Isovue 200 contrast dye was injected excellent epidurogram and outlining of the nerve root Subsequently, 2 mL of block solution containing 20 mg Dexamethasone PF was injected. Needle was removed . At the end of the procedure, skin was cleansed, and bandages were applied. COMPLICATIONS:none DISPOSITION / PLANS: The patient was placed in a supine position and transferred to the recovery area in a stable condition for observation. There was no evidence of lower extremity motor or sensory deficit after the procedure. Patient was discharged from the recovery room after meeting discharge criteria. Home discharge instructions were given to the patient by the staff. The patient was reexamined prior to discharge.
[2022-03-25 08:48] VITALS: BP 126/75; PULSE 65
--- NOTE | 2022-03-25 08:50 | FL ---
Intraoperative/procedural fluoroscopic services were provided for right transforaminal epidural injec tion. Total fluoroscopy time is 11 seconds with a total of 2 submitted images to PACS. Please see the operative note for further details.
== END 2022-03-25 09:03 | disposition home or self-care (01) ==
LOC: ORPAIN 07:26
PROVIDERS: ATTEND Specialist
DX: M50.123 Cervical disc disorder at C6-C7 level with radiculopathy (principal); M48.02 Spinal stenosis, cervical region
CPT/HCPCS: 64479; J1100; Q9966; 64483

== ENCOUNTER → 2022-04-10 | Outpatient (CLI) | payer OTHER ==
[2022-04-10 09:59] VITALS: BP 114/78; PULSE 67; RESP 18; TEMP 97.6
--- NOTE | 2022-04-10 14:43 | P.PAINPG ---
PQRS Measure Charge Sheet Comment: A 61 yr old male with a history of severe and chronic neck pain secondary to cervical DDD and spondylosis with facet arthropathy without myelopathy presents today for evaluation s/p R TFESI C6-C7. Pt states he experienced 50 % pain relief x 2 wks s/p procedure. Pain level is provoked at 2/10 in intensity, constant, localized in the cervical spine, stiffness in character w shooting towards . Pain is provoked by over head lifting. Pain is alleviated with PT in July 2021, home exercises, chiropractic treatments monthly, alternating heat & ice, medications (Mobic), repositioning and rest. Interventional pain procedures completed include R TFESI C6-C7 Patient is currently on Mobic Patient denies any side effects of the medication(s), denies excessive drowsiness or sleepiness, denies suicidal ideation and reports that the current pain medication is helping to control the pain and improve activities of daily living. Patient denies any motor or sensory deficits. Patient denies any fever or night sweats, denies any change in the bowel movements or urination. Physical Examination: -Constitutional: Cooperative. Not in acute distress . - Neurologic: Cranial nerve II to XII intact. No focal neurological deficits. - Psychatric: Alert & oriented x 3. Matching mood & appropriate affect. Judgment and insight intact. - Musculoskeletal: Cervical spine: Muscle bulk/ tone/ strength in the bilateral upper extremities normal Vertebral body tenderness to palpation over Spurling test positive Distraction test positive Facet loading test positive Thoracic spine Muscle bulk / tone/ strength in the bilateral paraspinal muscles normal Vertebral body tender to palpation over Facet loading test positive Lumbar spine: Motor bulk/ tone/ strength lower extremities , thigh and legs : 5/5 Deep tendon reflexes : Normal Knee Jerk. Normal Ankle Jerk . Vertebral body tenderness to palpation over Lumbar Facet Loading Test positive Straight Leg Raise: positive at 30 degrees right side/ left side Gaenslen's Test positive Sacral spine : Severe tenderness over the Sacroiliac joint: right side / left side Range of motion: Flexion of the lumbar spine <60 degrees Range of motion: Extension of the lumbar spine <20 degrees Gaenslen's Test positive April test: positive right side / left side Thigh Thrust Test Sacral Thrust Test Assessment and plan: Chronic neck pain secondary to cervical DDD, spondylosis with facet arthropathy without myelopathy Pt has substantial pain relief w procedure. He will manage residual pain at home and may return to the clinic on an as needed basis. All patient questions answered I have spent less than 30 minutes on patient care today. Dr Beatty was available by phone for the evaluation of this patient. The time was used to review the medical records including relevant urine studies and Prescription history (MAPs), review of the available imaging, evaluation and examination of the patient, coordination of care with the medical staff and if applicable referring physicians, as well as creation of the medical record PQRS Narrative: Smoking Status Never smoker Hx Alcohol Use (MH) No Home Medications: Ambulatory Orders Venlafaxine HCl [Effexor XR] 225 mg PO QAM 06/08/18 clonazePAM [KlonoPIN] 1 mg PO QAM 06/08/18 lisinopriL [Zestril] 5 mg PO DAILY 08/16/18 Meloxicam [Mobic] 15 mg PO DAILY 10/26/19 Multivitamins, Thera [Multivitamin (formulary)] 1 tab PO DAILY 05/14/20 Controlled Substance Measures - Controlled Substance Measures Is patient prescribed a controlled substance at discharge?: No
== END ==
LOC: PNWHC3 09:32
PROVIDERS: ATTEND Specialist
DX: M47.812 Spondylosis without myelopathy or radiculopathy, cervical region (principal); M50.30 Other cervical disc degeneration, unspecified cervical region
CPT/HCPCS: 99211

== ENCOUNTER 2022-06-26 08:25 | Day surgery (SDC) | payer OTHER ==
[2022-06-26 08:55] VITALS: TEMP 97
[2022-06-26] MEDS ORDERED: DEXAMETHASONE SOD PHOSPHATE 10 MG/ML 1 ML VIAL ONE (09:07)
[2022-06-26] MEDS ORDERED: IOPAMIDOL M200 10 ML VIAL ONE (09:07)
--- NOTE | 2022-06-26 09:24 | P.PCN ---
Date of Procedure: 06/26/22 Procedure(s) Performed: PREOPERATIVE DIAGNOSIS: 1-Cervical radiculopathy . 2-cervical foraminal stenosis. 3-cervical degenerative disc disease POSTOPERATIVE DIAGNOSIS: Same as preoperative diagnoses. PROCEDURE 1. Transforaminal epidural steroid injection under fluoroscopic guidance at right C6-7 level. (Fluoroscopy images stored on file in the radiology Department ) 2. cervical epidurogram . ANESTHESIA: Local with 1% lidocaine 3 ml only. EBL: Minimal PROCEDURE INDICATION: The patient with neck pain and radiculopathy symptoms unresponsive to conservative treatment. PROCEDURE DESCRIPTION / TECHNIQUE: The patient was seen and identified in the preoperative area. Risks, benefits, complications, and alternatives were discussed with the patient. The patient agreed to proceed with the procedure and signed the consent. and vital signs were stable. Patient was taken to the OR and time out was completed. The patient was placed in the lateral position ( Rt side up ) on procedure table . The right cervical area was prepped and draped in the usual sterile fashion. Critical pause was taken. Vital signs were closely monitored during the procedure. Conscious sedation was used during the procedure to decrease patient s anxiety. Using oblique fluoroscopy, the cervical area of C6 7 identified then the foraminal of C6-7 visualize, and then, the skin and deeper tissues just below was localized with 1% lidocaine. Subsequently, a 25-gauge 2.5-inch spinal needle was advanced under a tunneled view fluoroscopic guidance just underneath the chin of the ``Keon dog at the right C6-7 Under lateral fluoroscopy, the needle was then advanced to the posterior border of the interforaminal space. After negative aspiration of CSF and blood and with no paresthesias, 1 mL Isovue 200 contrast dye was injected excellent epidurogram and outlining of the nerve root Subsequently, 2 mL of block solution containing 20 mg Dexamethasone PF was injected. Needle was removed . At the end of the procedure, skin was cleansed, and bandages were applied. COMPLICATIONS:none DISPOSITION / PLANS: The patient was placed in a supine position and transferred to the recovery area in a stable condition for observation. There was no evidence of lower extremity motor or sensory deficit after the procedure. Patient was discharged from the recovery room after meeting discharge criteria. Home discharge instructions were given to the patient by the staff. The patient was reexamined prior to discharge.
[2022-06-26 09:29] VITALS: RESP 18
[2022-06-26 09:42] VITALS: BP 156/88; PULSE 61
--- NOTE | 2022-06-26 10:39 | FL ---
Intraoperative/procedural fluoroscopic services were provided. Total fluoroscopy time is 17.5 seconds with a total of 1 submitted images to PACS. Please see the operative/procedural note for further det ails. DAP: [id number]
== END 2022-06-26 09:43 | disposition home or self-care (01) ==
LOC: ORPAIN 08:25
PROVIDERS: ATTEND Specialist
DX: M50.123 Cervical disc disorder at C6-C7 level with radiculopathy (principal); M48.02 Spinal stenosis, cervical region
CPT/HCPCS: 64479; J1100; Q9966; 64483

== ENCOUNTER → 2022-07-17 | Outpatient (CLI) | payer OTHER ==
[2022-07-17 10:02] VITALS: BP 166/84; PULSE 70; RESP 20; TEMP 98.7
--- NOTE | 2022-07-17 14:29 | P.PAINPG ---
PQRS Measure Charge Sheet Comment: A 61 yr old male with a history of severe and chronic neck pain secondary to cervical DDD and spondylosis with facet arthropathy without myelopathy presents today for evaluation s/p R TFESI C6-7. Pt states he experienced 100 % pain relief x 2-3 wks s/p procedure. Pain level is provoked at 1/10 in intensity, constant, localized in the cervical spine, dull in character w/o shooting pain. Pain is provoked by hyperextension. Pain is alleviated with injections, heat, PT which ended 2 wks ago, repositioning and rest. Interventional pain procedures completed include R TFESI C6-7 Patient is currently on DENIES Patient denies any side effects of the medication(s), denies excessive drowsiness or sleepiness, denies suicidal ideation and reports that the current pain medication is helping to control the pain and improve activities of daily living. Patient denies any motor or sensory deficits. Patient denies any fever or night sweats, denies any change in the bowel movements or urination. Physical Examination: -Constitutional: Cooperative. Not in acute distress . - Neurologic: Cranial nerve II to XII intact. No focal neurological deficits. - Psychatric: Alert & oriented x 3. Matching mood & appropriate affect. Judgment and insight intact. - Musculoskeletal: Cervical spine: Muscle bulk/ tone/ strength in the bilateral upper extremities normal Vertebral body tenderness to palpation over Spurling test positive Distraction test positive Facet loading test positive TTP Thoracic spine Muscle bulk / tone/ strength in the bilateral paraspinal muscles normal Vertebral body tender to palpation over Facet loading test positive TTP Lumbar spine: Motor bulk/ tone/ strength lower extremities , thigh and legs : 5/5 Deep tendon reflexes : Normal Knee Jerk. Normal Ankle Jerk . Vertebral body tenderness to palpation over Lumbar Facet Loading Test positive Straight Leg Raise: positive at 30 degrees right side/ left side Gaenslen's Test positive Sacral spine : Severe tenderness over the Sacroiliac joint: right side / left side Range of motion: Flexion of the lumbar spine <60 degrees Range of motion: Extension of the lumbar spine <20 degrees Gaenslen's Test positive R / L April test: positive right side / left side Thigh Thrust Test positive R / L Sacral Thrust Test positive R/ L Assessment and plan: Chronic neck pain secondary to cervical DDD, spondylosis with facet arthropathy without myelopathy May return to clinic on an as needed basis. All questions answered. I have spent less than 30 minutes on patient care today. Dr Beatty was available by phone for the evaluation of this patient. The time was used to review the medical records including relevant urine studies and Prescription history (MAPs), review of the available imaging, evaluation and examination of the patient, coordination of care with the medical staff and if applicable referring physicians, as well as creation of the medical record PQRS Narrative: Smoking Status Never smoker Hx Alcohol Use (MH) No Home Medications: Ambulatory Orders Venlafaxine HCl [Effexor XR] 225 mg PO QAM 06/08/18 clonazePAM [KlonoPIN] 1 mg PO QAM 06/08/18 Meloxicam [Mobic] 15 mg PO QAM 10/26/19 Controlled Substance Measures - Controlled Substance Measures Is patient prescribed a controlled substance at discharge?: No
== END ==
LOC: PNWHC3 09:26
PROVIDERS: ATTEND Specialist
DX: M50.30 Other cervical disc degeneration, unspecified cervical region (principal); M47.812 Spondylosis without myelopathy or radiculopathy, cervical region; G89.29 Other chronic pain
CPT/HCPCS: 99211

== ENCOUNTER 2022-08-06 02:32 | Emergency (ER) | payer OTHER ==
[2022-08-06 02:44] VITALS: TEMP 98.1
[2022-08-06] MEDS ORDERED: ONDANSETRON 4 MG/2 ML VIAL IVP STA (03:01)
[2022-08-06] MEDS ORDERED: SODIUM CHLORIDE 0.9% 1,000 ML IV STA (03:01)
[2022-08-06] MEDS ORDERED: SODIUM CHLORIDE 0.9% 500 ML 500 ML IV STA (03:01)
[2022-08-06] MEDS ORDERED: KETOROLAC 15 MG/ML 1 ML VIAL IVP STA (03:01)
--- NOTE | 2022-08-06 03:03 | ED ---
Abdominal Pain HPI - General Chief Complaint: Abdominal Pain Stated Complaint: POSSIBLE KIDNEY STONE Time Seen by Provider: 08/06/22 02:56 Source: patient, RN notes reviewed Mode of arrival: ambulatory Limitations: no limitations - History of Present Illness Initial Comments: This a 61-year-old male presents emergency Department with chief complaint left flank pain. Patient states he felt some pressure felt comfortable sporting states he fell unit to have a bowel movement states he had a bowel movement today with no relief of symptoms. Patient states nothing really makes pain feel better or worse. He states he kidney stone 40 years ago states she's not had anything recently. He does admit to some nausea he has no complaints of dysuria or notable hematuria. Patient reports no fever. Patient states he feels in his back and lower abdomen. - Related Data Home Medications Medication Instructions Recorded Confirmed Venlafaxine HCl [Effexor XR] 225 mg PO QAM 06/08/18 07/17/22 clonazePAM [KlonoPIN] 1 mg PO QAM 06/08/18 07/17/22 Meloxicam [Mobic] 15 mg PO QAM 10/26/19 07/17/22 Previous Rx's Medication Instructions Recorded Ketorolac [Toradol] 10 mg PO Q8HR #15 tab 08/06/22 Ondansetron Odt [Zofran Odt] 4 mg PO Q8HR PRN #10 tab 08/06/22 Allergies Allergy/AdvReac Type Severity Reaction Status Date / Time No Known Allergies Allergy Verified 08/06/22 02:43 Review of Systems ROS Statement: Those systems with pertinent positive or pertinent negative responses have been documented in the HPI. ROS Other: All systems not noted in ROS Statement are negative. Past Medical History Past Medical History: Hypertension Additional Past Medical History / Comment(s): LOW BACK PAIN, HERNIATED DISCS, P AST HX HTN, PAST KIDNEY STONE/PASSED ON OWN History of Any Multi-Drug Resistant Organisms: None Reported Past Surgical History: Back Surgery, Orthopedic Surgery, Tonsillectomy Additional Past Surgical History / Comment(s): LOWER BACK SURGERY (OVER 30 YRS AGO), Pain procedures, Colonoscopy. REPAIR TORN RT BICEP Past Anesthesia/Blood Transfusion Reactions: No Reported Reaction, Family History of Problems w/ Anesthesia Additional Past Anesthesia/Blood Transfusion Reaction / Comment(s): Mother has PONV. Past Psychological History: Anxiety, Depression, Panic Disorder Smoking Status: Never smoker Past Alcohol Use History: None Reported Past Drug Use History: None Reported - Past Family History Mother Family Medical History: Blood Disorder, Cancer, Deep Vein Thrombosis (DVT) Additional Family Medical History / Comment(s): BREAST CANCER. Factor V blood disorder. General Exam Limitations: no limitations General appearance: alert, in no apparent distress Head exam: Present: atraumatic, normocephalic, normal inspection Eye exam: Present: normal appearance, PERRL, EOMI. Absent: scleral icterus, conjunctival injection, periorbital swelling Respiratory exam: Present: normal lung sounds bilaterally. Absent: respiratory distress, wheezes, rales, rhonchi, stridor Cardiovascular Exam: Present: regular rate, normal rhythm, normal heart sounds. Absent: systolic murmur, diastolic murmur, rubs, gallop, clicks GI/Abdominal exam: Present: soft, tenderness, normal bowel sounds. Absent: distended, guarding, rebound, rigid Back exam: Absent: CVA tenderness (R), CVA tenderness (L) Course Vital Signs 08/06/22 08/06/22 02:39 05:57 Temperature 98.1 F Pulse Rate 78 74 Respiratory 20 18 Rate Blood Pressure 149/89 146/96 O2 Sat by Pulse 99 96 Oximetry Medical Decision Making - Medical Decision Making Was pt. sent in by a medical professional or institution (DUSTIN Rodrigues, TELEPHONE SEX WORKER, urgent care, hospital, or detention...) When possible be specific @ -No Did you speak to anyone other than the patient for history (EMS, parent, family, police, friend...)? What history was obtained from this source @ -No Did you review nursing and triage notes (agree or disagree)? Why? @ -I reviewed and agree with nursing and triage notes Were old charts reviewed (outside hosp., previous admission, EMS record, old EKG, old radiological studies, urgent care reports/EKG's, detention records)? Report findings @ -No old charts were reviewed Differential Diagnosis (chest pain, altered mental status, abdominal pain women, abdominal pain men, vaginal bleeding, weakness, fever, dyspnea, syncope, headache, dizziness, GI bleed, back pain, seizure, CVA, palpatations, mental health, musculoskeletal)? @ -Differential Abdominal Pain Men: Appendicitis, cholecystitis, diverticulosis, ischemic bowel, pancreatitis, hepatitis, UTI, gastroenteritis, AAA, incarcerated hernia, bowel obstruction, constipation, inflammatory bowel, hepatitis, peptic ulcer disease, splenic infarction, perforated viscus, testicular torsion, this is not meant to be an all-inclusive list EKG interpreted by me (3pts min.). @ -None X-rays interpreted by me (1pt min.). @ -None done CT interpreted by me (1pt min.). @ -CT shows hydronephrosis on the left, stone at the UVJ/bladder U/S interpreted by me (1pt. min.). @ -None done What testing was considered but not performed or refused? (CT, X-rays, U/S, labs)? Why? @ -None What meds were considered but not given or refused? Why? @ -None Did you discuss the management of the patient with other professionals (professionals i.e. , PA, TELEPHONE SEX WORKER, lab, RT, psych nurse, psychiatric social worker, didactic instructor, teacher, medical officer psychiatry, case checker)? Give summary @ -No Was smoking cessation discussed for >3mins.? @ -No Was critical care preformed (if so, how long)? @ -No Were there social determinants of health that impacted care today? How? (Homelessness, low income, unemployed, alcoholism, drug addiction, transportation, low edu. Level, literacy, decrease access to med. care, fpc, rehab)? @ -No Was there de-escalation of care discussed even if they declined (Discuss DNR or withdrawal of care, Hospice)? DNR status @ -No What co-morbidities impacted this encounter? (DM, HTN, Smoking, COPD, CAD, Cancer, CVA, ARF, Chemo, Hep., AIDS, mental health diagnosis, sleep apnea, morbid obesity)? @ -None Was patient admitted / discharged? Hospital course, mention meds given and route, prescriptions, significant lab abnormalities, going to OR and other pertinent info. @ -Discharge pain is greatly improved. Patient has evidence of kidney stone, hydronephrosis. Urinalysis shows hematuria consistent with kidney stone. Patient discharged in stable condition with close follow-up return parameters were discussed. Undiagnosed new problem with uncertain prognosis? @ -No Drug Therapy requiring intensive monitoring for toxicity (Heparin, Nitro, Insulin, Cardizem)? @ -No Were any procedures done? @ -No Diagnosis/symptom? @ -Kidney stone left Acute, or Chronic, or Acute on Chronic? @ -Acute Uncomplicated (without systemic symptoms) or Complicated (systemic symptoms)? @ -Uncomplicated Side effects of treatment? @ -No Exacerbation, Progression, or Severe Exacerbation? @ -No Poses a threat to life or bodily function? How? (Chest pain, [place], [place], pneumonia, PE, COPD, DKA, ARF, appy, cholecystitis, CVA, Diverticulitis, Homicidal, Suicidal, threat to staff... and all critical care pts) @ -No - Lab Data Result diagrams: 08/06/22 03:16 08/06/22 03:16 Lab Results 08/06/22 08/06/22 08/06/22 Range/Units 03:16 03:16 03:16 WBC 8.1 (3.8-10.6) k/uL RBC 4.63 (4.30-5.90) m/uL Hgb 13.9 (13.0-17.5) gm/dL Hct 40.8 (39.0-53.0) % MCV 88.3 (80.0-100.0) fL MCH 30.1 (25.0-35.0) pg MCHC 34.1 (31.0-37.0) g/dL RDW 13.0 (11.5-15.5) % Plt Count 155 (150-450) k/uL MPV 9.0 Neutrophils % 82 % Lymphocytes % 7 % Monocytes % 7 % Eosinophils % 1 % Basophils % 1 % Neutrophils # 6.6 (1.3-7.7) k/uL Lymphocytes # 0.6 L (1.0-4.8) k/uL Monocytes # 0.6 (0-1.0) k/uL Eosinophils # 0.1 (0-0.7) k/uL Basophils # 0.0 (0-0.2) k/uL Sodium 138 (137-145) mmol/L Potassium 4.1 (3.5-5.1) mmol/L Chloride 101 (98-107) mmol/L Carbon Dioxide 27 (22-30) mmol/L Anion Gap 10 mmol/L BUN 18 (9-20) mg/dL Creatinine 1.14 (0.66-1.25) mg/dL Est GFR (CKD-EPI)AfAm 80 (>60 ml/min/1.73 sqM) Est GFR (CKD-EPI)NonAf 69 (>60 ml/min/1.73 sqM) Glucose 113 H (74-99) mg/dL Calcium 9.3 (8.4-10.2) mg/dL Total Bilirubin 0.5 (0.2-1.3) mg/dL AST 28 (17-59) U/L ALT 23 (4-49) U/L Alkaline Phosphatase 64 (38-126) U/L Total Protein 6.7 (6.3-8.2) g/dL Albumin 4.3 (3.5-5.0) g/dL Lipase 60 (23-300) U/L Urine Color Yellow Urine Appearance Clear (Clear) Urine pH 6.0 (5.0-8.0) Ur Specific Robertson 1.016 (1.001-1.035) Urine Protein Negative (Negative) Urine Glucose (UA) Negative (Negative) Urine Ketones Negative (Negative) Urine Blood Large H (Negative) Urine Nitrite Negative (Negative) Urine Bilirubin Negative (Negative) Urine Urobilinogen <2.0 (<2.0) mg/dL Ur Leukocyte Esterase Small H (Negative) Urine RBC 137 H (0-5) /hpf Urine WBC 9 H (0-5) /hpf Urine Bacteria Rare H (None) /hpf Hyaline Casts 1 (0-2) /lpf Urine Mucus Occasional H (None) /hpf Disposition Clinical Impression: Kidney stone on left side Disposition: HOME SELF-CARE Condition: Stable Instructions (If sedation given, give patient instructions): Kidney Stones (ED) Additional Instructions: Please return to the Emergency Department if symptoms worsen or any other concerns. Prescriptions: Ketorolac [Toradol] 10 mg PO Q8HR #15 tab Ondansetron Odt [Zofran Odt] 4 mg PO Q8HR PRN #10 tab PRN Reason: Nausea Is patient prescribed a controlled substance at d/c from ED?: No Referrals: Colin Cárdenas DO [Primary Care Provider] - 1-2 days Chris Stevenson MD [STAFF PHYSICIAN] - 1-2 days Time of Disposition: 03:54
[2022-08-06 03:36] LABS: Albumin 4.3 g/dL (3.5-5.0); Calcium 9.3 mg/dL (8.4-10.2); Potassium 4.1 mmol/L (3.5-5.1); Total Bilirubin 0.5 mg/dL (0.2-1.3); Total Protein 6.7 g/dL (6.3-8.2)
[2022-08-06 03:43] LABS: Basophils % (A) 1 %; Eosinophils # (A) 0.1 k/uL (0-0.7); Eosinophils % (A) 1 %; HCT 40.8 % (39.0-53.0); HGB 13.9 gm/dL (13.0-17.5); Lymphocytes # (A) 0.6 k/uL (1.0-4.8); Lymphocytes % (A) 7 %; MCH 30.1 pg (25.0-35.0); MCHC 34.1 g/dL (31.0-37.0); MCV 88.3 fL (80.0-100.0); Monocytes # (A) 0.6 k/uL (0-1.0); Monocytes % (A) 7 %; Neutrophils # (A) 6.6 k/uL (1.3-7.7); Neutrophils % (A) 82 %; Platelet Count 155 k/uL (150-450); RBC 4.63 m/uL (4.30-5.90); WBC 8.1 k/uL (3.8-10.6)
[2022-08-06 03:47] LABS: Appearance,Urine Clear (Clear); Bacteria,Urine Rare /hpf; Bilirubin,Urine Negative (Negative); Blood,Urine Large (Negative); Color,Urine Yellow; Glucose,Urine (UA) Negative (Negative); Hyaline Casts,Urine 1 /lpf (0-2); Ketones,Urine Negative (Negative); Leukocyte Esterase,Urine Small (Negative); Mucus,Urine Occasional /hpf; Nitrite,Urine Negative (Negative); Protein,Urine Negative (Negative); RBC,Urine 137 /hpf (0-5); Specific Gravity,Urine 1.016 (1.001-1.035); Urobilinogen,Urine <2.0 mg/dL (<2.0); WBC,Urine 9 /hpf (0-5)
--- NOTE | 2022-08-06 04:56 | CT ---
EXAM: CT Abdomen and Pelvis Without Intravenous Contrast CLINICAL HISTORY: ITS.REASON CT Reason: left flank pain TECHNIQUE: Axial computed tomography images of the abdomen and pelvis without intravenous contrast. CTDI is 11.3 mGy and DLP is 666 mGy-cm. This CT exam was performed using one or more of the following dose reduction techniques: automated exposure control, adjustment of the mA and/or kV according to patient size, and/or use of iterative reconstruction technique. COMPARISON: No relevant prior studies available. FINDINGS: Lung bases: Unremarkable. No mass. No consolidation. ABDOMEN: Liver: Unremarkable. Gallbladder and bile ducts: Unremarkable. No calcified stones. No ductal dilation. Pancreas: Unremarkable. No ductal dilation. Spleen: Unremarkable. No splenomegaly. Adrenals: Unremarkable. No mass. Kidneys and ureters: 5 mm obstructing calculus at the left ureterovesical junction. Moderate left hydroureteronephrosis and perinephric stranding. Punctate nonobstructing bilateral renal calculi. Stomach and bowel: Unremarkable. No obstruction. No mucosal thickening. PELVIS: Appendix: Normal appendix. Bladder: Bladder wall thickening versus partial distention. No stones. Reproductive: Unremarkable as visualized. ABDOMEN and PELVIS: Intraperitoneal space: Unremarkable. No free air. No significant fluid collection. Bones/joints: No acute fracture. No dislocation. Soft tissues: Unremarkable. Vasculature: Unremarkable. No abdominal aortic aneurysm. Lymph nodes: Unremarkable. No enlarged lymph nodes. Other findings: Elevated left hemidiaphragm/eventration. IMPRESSION: 1. 5 mm obstructing calculus at the left ureterovesical junction. Moderate left hydroureteronephrosis and perinephric stranding. 2. Bladder wall thickening versus partial distention. Also correlate for cystitis. 3. Punctate nonobstructing bilateral renal calculi.
[2022-08-06 06:02] VITALS: BP 146/96; PULSE 74; RESP 18
== END 2022-08-06 06:34 | disposition home or self-care (01) ==
LOC: EC 02:32
DX: N13.2 Hydronephrosis with renal and ureteral calculous obstruction (principal); I10 Essential (primary) hypertension; F41.9 Anxiety disorder, unspecified; F32.A Depression, unspecified; Z79.899 Other long term (current) drug therapy
CPT/HCPCS: 36415; 80053; 83690; 85025; 81001; 74176; 99284; 96374; 96375; 96361 ×2; J2405; J1885

== ENCOUNTER → 2022-09-10 | Outpatient (CLI) | payer OTHER ==
--- NOTE | 2022-09-12 14:40 | MR ---
EXAMINATION TYPE: MR shay miller con DATE OF EXAM: 09/10/2022 10:11 PM CLINICAL INDICATION:Male, 62 years old with history of M54.12; Neck pain and numbness into Rt arm/hand, Headaches COMPARISON: MRI cervical spine 11/03/2019 and lumbar spine 05/07/2018 TECHNIQUE: Multi planar, multi sequence imaging was performed utilizing: T1- weighted, T2-weighted, and turbo inversion recovery imaging of the cervical. MR contrast: IV Contrast: None. FINDINGS: CERVICAL: Alignment: The cervical vertebral bodies have preserved heights. Alignment is within normal limits given patient positioning. Bones: Bone signal is within normal limits. Multilevel disc degeneration changes throughout the spine worse at C5-C6 and C6-C7. Modic end plate changes are most pronounced at C6-C7. Cord: The spinal cord is unremarkable with regards to their signal intensity and morphology. Discs: Multilevel disc desiccation is present. C2-C3: No significant disc pathology. The spinal canal is patent. No neural foraminal stenosis. C3-C4: A disc osteophyte complex is present which minimally narrows the ventral subarachnoid space. Bilateral facet and uncovertebral joint arthropathy are present with moderate to severe right and mild left neural foraminal stenosis. C4-C5: No significant disc pathology. The spinal canal is patent. No neural foraminal stenosis. C5-C6: A disc osteophyte complex is present with mild spinal canal stenosis. Bilateral facet and uncovertebral joint arthropathy are present with moderate bilateral neural foraminal stenosis. C6-C7: A disc osteophyte complex is present with mild spinal canal stenosis. Bilateral facet and uncovertebral joint arthropathy are present with moderate to severe left and moderate right neural foraminal stenosis. C7-T1: No significant disc pathology. The spinal canal is patent. No neural foraminal stenosis. Other: None. IMPRESSION: C-spine: Multilevel disc degeneration changes throughout the cervical spine worse at C3- C4 with moderate to severe right, and C6-C7 with moderate to severe left and moderate right and at C5-C6 with moderate bilateral neural foraminal stenosis. Overall findings may be mildly progressed from prior in 2019 MTDD
== END | disposition home or self-care (01) ==
LOC: RADMRIMAIN 21:15
PROVIDERS: ATTEND Family Medicine
DX: M50.122 Cervical disc disorder at C5-C6 level with radiculopathy (principal); M48.02 Spinal stenosis, cervical region
CPT/HCPCS: 72141; 72148

== ENCOUNTER → 2022-10-08 | Outpatient (CLI) | payer OTHER ==
--- NOTE | 2022-10-08 14:21 | P.PAINPG ---
PQRS Measure Charge Sheet Comment: A 61 yr old male with a history of severe and chronic neck pain x 3 yrs secondary to cervical DDD and spondylosis with facet arthropathy without myelopathy presents today for evaluation s/p R TFESI C6-C7. Pt states he experienced 100% pain relief x 3 mo s/p procedure. Pain level is provoked at 9/10 in intensity, constant, localized in the cervical spine, dull in character w shooting pain towards BL hands. Pain is provoked by hyperextension. Pain is alleviated with injections, medications, topical, heat, PT x 6 wks which ended 1 mo ago, chiropractic treatments weekly x 6 mo which he is currently in, repositioning and rest. Oswestry axial pain score at 19. Interventional pain procedures completed include R TFESI C6-7 x3, DIMA C6-C7 x1 Patient is currently on Mobic, Voltaren gel Patient denies any side effects of the medication(s), denies excessive drowsiness or sleepiness, denies suicidal ideation and reports that the current pain medication is helping to control the pain and improve activities of daily living. Patient denies any motor or sensory deficits. Patient denies any fever or night sweats, denies any change in the bowel movements or urination. Physical Examination: -Constitutional: Cooperative. Not in acute distress . - Neurologic: Cranial nerve II to XII intact. No focal neurological deficits. - Psychatric: Alert & oriented x 3. Matching mood & appropriate affect. Judgment and insight intact. - Musculoskeletal: Cervical spine: Muscle bulk/ tone/ strength in the bilateral upper extremities normal Vertebral body tenderness to palpation over C6 Spurling test positive over BL C6-C7 Distraction test positive Facet loading test positive TTP Thoracic spine Muscle bulk / tone/ strength in the bilateral paraspinal muscles normal Vertebral body tender to palpation over Facet loading test positive TTP Lumbar spine: Motor bulk/ tone/ strength lower extremities , thigh and legs : 5/5 Deep tendon reflexes : Normal Knee Jerk. Normal Ankle Jerk . Vertebral body tenderness to palpation over Lumbar Facet Loading Test positive Straight Leg Raise: positive at 30 degrees right side/ left side Gaenslen's Test positive Sacral spine : Severe tenderness over the Sacroiliac joint: right side / left side Range of motion: Flexion of the lumbar spine <60 degrees Range of motion: Extension of the lumbar spine <20 degrees Gaenslen's Test positive R / L April test: positive right side / left side Thigh Thrust Test positive R / L Sacral Thrust Test positive R/ L Assessment and plan: Chronic neck pain secondary to cervical DDD, spondylosis with facet arthropathy without myelopathy Recommendation of SERVANDO ACKERMAN C6-C7 #2. May need a series of injections for optimal pain relief. Risks, benefits of procedure discussed and patient verbalized understanding. Protocol for discontinuation/continuation of medications surrounded procedure discussed. All questions answered. I have spent less than 30 minutes on patient care today. Dr Beatty was available by phone for the evaluation of this patient. The time was used to review the medical records including relevant urine studies and Prescription history (MAPs), review of the available imaging, evaluation and examination of the patient, coordination of care with the medical staff and if applicable referring physicians, as well as creation of the medical record PQRS Narrative: Smoking Status Never smoker Hx Alcohol Use (MH) No Home Medications: Ambulatory Orders Venlafaxine HCl [Effexor XR] 225 mg PO QAM 06/08/18 clonazePAM [KlonoPIN] 1 mg PO QAM 06/08/18 Meloxicam [Mobic] 15 mg PO QAM 10/26/19 Ketorolac [Toradol] 10 mg PO Q8HR #15 tab 08/06/22 Ondansetron Odt [Zofran Odt] 4 mg PO Q8HR PRN #10 tab 08/06/22 Controlled Substance Measures - Controlled Substance Measures Is patient prescribed a controlled substance at discharge?: No
[2022-10-08 14:38] VITALS: BP 155/93; PULSE 67; RESP 16; TEMP 97.6
== END ==
LOC: PNWHC3 09:29
PROVIDERS: ATTEND Specialist
DX: M50.323 Other cervical disc degeneration at C6-C7 level (principal); M47.812 Spondylosis without myelopathy or radiculopathy, cervical region; G89.29 Other chronic pain
CPT/HCPCS: 99211

== ENCOUNTER 2022-10-30 07:57 | Day surgery (SDC) | payer OTHER ==
[2022-10-30 08:22] VITALS: RESP 16; TEMP 97.2
[2022-10-30] MEDS ORDERED: DEXAMETHASONE SOD PHOSPHATE 10 MG/ML 1 ML VIAL ONE (08:50)
[2022-10-30] MEDS ORDERED: IOPAMIDOL M200 10 ML VIAL ONE (08:50)
--- NOTE | 2022-10-30 09:01 | P.PCN ---
Date of Procedure: 10/30/22 Procedure(s) Performed: PREOPERATIVE DIAGNOSIS: 1-Cervical radiculopathy . 2-cervical foraminal stenosis. 3-cervical degenerative disc disease POSTOPERATIVE DIAGNOSIS: Same as preoperative diagnoses. PROCEDURE 1. Transforaminal epidural steroid injection under fluoroscopic guidance at right C6-7 level. (Fluoroscopy images stored on file in the radiology Department ) 2. cervical epidurogram . ANESTHESIA: Local with 1% lidocaine 3 ml only. EBL: Minimal PROCEDURE INDICATION: The patient with neck pain and radiculopathy symptoms unresponsive to conservative treatment. PROCEDURE DESCRIPTION / TECHNIQUE: The patient was seen and identified in the preoperative area. Risks, benefits, complications, and alternatives were discussed with the patient. The patient agreed to proceed with the procedure and signed the consent. and vital signs were stable. Patient was taken to the OR and time out was completed. The patient was placed in the lateral position ( Rt side up ) on procedure table . The right cervical area was prepped and draped in the usual sterile fashion. Critical pause was taken. Vital signs were closely monitored during the procedure. Conscious sedation was used during the procedure to decrease patient s anxiety. Using oblique fluoroscopy, the cervical area of C6 7 identified then the foraminal of C6-7 visualize, and then, the skin and deeper tissues just below was localized with 1% lidocaine. Subsequently, a 25-gauge 2.5-inch spinal needle was advanced under a tunneled view fluoroscopic guidance just underneath the chin of the `Mary dog at the right C6-7 Under lateral fluoroscopy, the needle was then advanced to the posterior border of the interforaminal space. After negative aspiration of CSF and blood and with no paresthesias, 1 mL Isovue 200 contrast dye was injected excellent epidurogram and outlining of the nerve root Subsequently, 2 mL of block solution containing 15 mg Dexamethasone PF was injected. Needle was removed . At the end of the procedure, skin was cleansed, and bandages were applied. COMPLICATIONS:none DISPOSITION / PLANS: The patient was placed in a supine position and transferred to the recovery area in a stable condition for observation. There was no evidence of lower extremity motor or sensory deficit after the procedure. Patient was discharged from the recovery room after meeting discharge criteria. Home discharge instructions were given to the patient by the staff. The patient was reexamined prior to discharge. note= patient was scheduled to have bilateral transforaminal epidural steroid injection at C6 7, but in the procedure room ,he reported that he had pain only on the right side, he had no pain on the left side, for this reason the procedure was changed from bilateral to right side transforaminal epidural steroid injection at C6 7
[2022-10-30 09:18] VITALS: BP 167/96; PULSE 60
--- NOTE | 2022-10-30 12:25 | FL ---
EXAMINATION TYPE: FL guided pain mgmt statistic DATE OF EXAM: 10/30/2022 FLUOROSCOPY Fluoroscopy time of 9 seconds was used during right-sided transforaminal epidural injection of the ce rvical spine. 2 image/s document/s the procedure. DOSE AREA PRODUCT (DAP) UGY*M,MGY*CM: [id number]
== END 2022-10-30 09:18 | disposition home or self-care (01) ==
LOC: ORPAIN 07:57
PROVIDERS: ATTEND Specialist
DX: M50.123 Cervical disc disorder at C6-C7 level with radiculopathy (principal); M48.02 Spinal stenosis, cervical region
CPT/HCPCS: 64479; J1100; Q9966; 64483

== ENCOUNTER → 2022-11-26 | Outpatient (CLI) | payer OTHER | LOC: PNWHC3 09:12 | PROVIDERS: ATTEND Anesthesiology | DX: M50.320 Other cervical disc degeneration, mid-cervical region, unspecified level (principal); M50.322 Other cervical disc degeneration at C5-C6 level; M50.323 Other cervical disc degeneration at C6-C7 level; F41.8 Other specified anxiety disorders; N40.0 Benign prostatic hyperplasia without lower urinary tract symptoms | CPT/HCPCS: 99211 ==

== ENCOUNTER 2023-01-08 08:08 | Day surgery (SDC) | payer OTHER ==
[~2023-01-08 08:08] MED LIST changes: -LIDOCAINE 1% (10MG/ML) FOR IV START INTRADERMA PRN
[2023-01-08 08:38] VITALS: RESP 16; TEMP 96.3
[2023-01-08] MEDS ORDERED: DEXAMETHASONE SOD PHOSPHATE 10 MG/ML 1 ML VIAL ONE (09:17)
[2023-01-08] MEDS ORDERED: IOPAMIDOL M200 10 ML VIAL ONE (09:17)
--- NOTE | 2023-01-08 09:30 | P.PCN ---
Date of Procedure: 01/08/23 Procedure(s) Performed: PREOPERATIVE DIAGNOSIS: 1-Cervical radiculopathy . 2-cervical foraminal stenosis. 3-cervical degenerative disc disease POSTOPERATIVE DIAGNOSIS: Same as preoperative diagnoses. PROCEDURE 1. Transforaminal epidural steroid injection under fluoroscopic guidance at right C7-T1 level. (Fluoroscopy images stored on file in the radiology Department ) 2. cervical epidurogram . ANESTHESIA: Local with 1% lidocaine 3 ml only. EBL: Minimal PROCEDURE INDICATION: The patient with neck pain and radiculopathy symptoms unresponsive to conservative treatment. PROCEDURE DESCRIPTION / TECHNIQUE: The patient was seen and identified in the preoperative area. Risks, benefits, complications, and alternatives were discussed with the patient. The patient agreed to proceed with the procedure and signed the consent. and vital signs were stable. Patient was taken to the OR and time out was completed. The patient was placed in the lateral position ( Rt side up ) on procedure table . The right cervical area was prepped and draped in the usual sterile fashion. Critical pause was taken. Vital signs were closely monitored during the procedure. Conscious sedation was used during the procedure to decrease patient s anxiety. Using oblique fluoroscopy, the cervical area of Right C7-T1 identified then the foraminal of C7-T1 visualize, and then, the skin and deeper tissues just below was localized with 1% lidocaine. Subsequently, a 22-gauge 3.5-inch spinal needle was advanced under a tunneled view fluoroscopic guidance just underneath the chin of the ``Keon dog at the right C7-T1 Under lateral fluoroscopy, the ne edle was then advanced to the posterior border of the interforaminal space. After negative aspiration of CSF and blood and with no paresthesias, 1 mL Isovue 200 contrast dye was injected excellent epidurogram and outlining of the nerve root Subsequently, 2 mL of block solution containing 15 mg Dexamethasone PF was injected. Needle was removed . At the end of the procedure, skin was cleansed, and bandages were applied. COMPLICATIONS:none DISPOSITION / PLANS: The patient was placed in a supine position and transferred to the recovery area in a stable condition for observation. There was no evidence of lower extremity motor or sensory deficit after the procedure. Patient was discharged from the recovery room after meeting discharge criteria. Home discharge instructions were given to the patient by the staff. The patient was reexamined prior to discharge.
[2023-01-08 09:52] VITALS: BP 155/93; PULSE 70
--- NOTE | 2023-01-08 10:42 | FL ---
EXAMINATION TYPE: FL guided pain mgmt statistic DATE OF EXAM: 01/08/2023 FLUOROSCOPY Fluoroscopy time of 7.9 seconds was used during transforaminal epidural injection. 2 image/s documen t/s the procedure. DAP: 0.27219 mGycm2
== END 2023-01-08 09:49 | disposition home or self-care (01) ==
LOC: ORPAIN 08:08
PROVIDERS: ATTEND Specialist
DX: M50.13 Cervical disc disorder with radiculopathy, cervicothoracic region (principal); M48.02 Spinal stenosis, cervical region
CPT/HCPCS: 64479; J1100; Q9966; 64483

== ENCOUNTER → 2023-07-27 | Outpatient (CLI) | payer OTHER ==
[2023-07-27 10:03] VITALS: BP 133/85; PULSE 70; RESP 16; TEMP 96.9
--- NOTE | 2023-07-27 14:08 | P.PAINPG ---
PQRS Measure Charge Sheet Comment: A 62 yr old male with a history of severe and chronic neck pain x 3 yrs secondary to cervical DDD and spondylosis with facet arthropathy without myelopathy presents today for evaluation s/p R TFESI C7- T1. Pt states he experienced 80 % pain relief x 3 mo s/p procedure. Pain level is provoked at 7 /10 in intensity, constant, localized in the R cervical spine, stinging in character w shooting pain towards BL hands. Pain is provoked by hyperextension. Pain is alleviated with injections, medications, topical, heat, PT x 6 wks which ended 1 mo ago, chiropractic treatments weekly x 6 mo which he is currently in, repositioning and rest. Oswestry axial pain score at 17. Interventional pain procedures completed include R TFESI C6-7 x3, DIMA C6-C7 x1, R TFESI C7-T1 x1 (Dec 2022) Patient is currently on Mobic, Voltaren gel Patient denies any side effects of the medication(s), denies excessive drowsiness or sleepiness, denies suicidal ideation and reports that the current pain medication is helping to control the pain and improve activities of daily living. Patient denies any motor or sensory deficits. Patient denies any fever or night sweats, denies any change in the bowel movements or urination. Physical Examination: -Constitutional: Cooperative. Not in acute distress . - Neurologic: Cranial nerve II to XII intact. No focal neurological deficits. - Psychatric: Alert & oriented x 3. Matching mood & appropriate affect. Judgment and insight intact. - Musculoskeletal: Cervical spine: Muscle bulk/ tone/ strength in the bilateral upper extremities normal Vertebral body tenderness to palpation Spurling test positive Taut bands w twitch response over R C6-T6 Distraction test positive Facet loading test positive TTP Thoracic spine Muscle bulk / tone/ strength in the bilateral paraspinal muscles normal Vertebral body tender to palpation over Facet loading test positive TTP Lumbar spine: Motor bulk/ tone/ strength lower extremities , thigh and legs : 5/5 Deep tendon reflexes : Normal Knee Jerk. Normal Ankle Jerk . Vertebral body tenderness to palpation over Lumbar Facet Loading Test positive Straight Leg Raise: positive at 30 degrees right side/ left side Gaenslen's Test positive Sacral spine : Severe tenderness over the Sacroiliac joint: right side / left side Range of motion: Flexion of the lumbar spine <60 degrees Range of motion: Extension of the lumbar spine <20 degrees Gaenslen's Test positive R / L April test: positive right side / left side Thigh Thrust Test positive R / L Sacral Thrust Test positive R/ L Assessment and plan: Chronic neck pain secondary to cervical DDD, spondylosis with facet arthropathy without myelopathy Recommendation of R TPIs C6-T6 #1. May need a series of injections for optimal pain relief. Risks, benefits of procedure discussed and patient verbalized understanding. Protocol for discontinuation/continuation of medications surrounded procedure discussed. All questions answered. I have spent less than 30 minutes on patient care today. Dr Beatty was available by phone for the evaluation of this patient. The time was used to review the medical records including relevant urine studies and Prescription history (MAPs), review of the available imaging, evaluation and examination of the patient, coordination of care with the medical staff and if applicable referring physicians, as well as creation of the medical record PQRS Narrative: Smoking Status Never smoker Hx Alcohol Use (MH) No Home Medications: Ambulatory Orders Venlafaxine HCl [Effexor XR] 225 mg PO QAM 06/08/18 clonazePAM [KlonoPIN] 1 mg PO QAM 06/08/18 Meloxicam [Mobic] 15 mg PO QAM 10/26/19 Controlled Substance Measures - Controlled Substance Measures Is patient prescribed a controlled substance at discharge?: No
== END ==
LOC: PNWHC3 07:56
PROVIDERS: ATTEND Specialist
DX: M50.23 Other cervical disc displacement, cervicothoracic region (principal); M47.813 Spondylosis without myelopathy or radiculopathy, cervicothoracic region; G89.29 Other chronic pain
CPT/HCPCS: 99211

== ENCOUNTER 2023-08-04 06:12 | Day surgery (SDC) | payer OTHER ==
[2023-08-04 07:24] VITALS: RESP 16; TEMP 97.2
[2023-08-04] MEDS ORDERED: TRIAMCINOLONE ACETONIDE 40 MG/ML 1 ML VIAL ONE (07:39)
[2023-08-04] MEDS ORDERED: ROPIVACAINE 5MG/ML 20ML VIAL ONE (07:39)
--- NOTE | 2023-08-04 07:49 | P.PCN ---
Date of Procedure: 08/04/23 Surgeon: Kim Narayan Pathology: none sent Condition: stable Disposition: PACU Description of Procedure: Name of procedure: Trigger point injection Diagnosis: Myofascial pain Anesthesia: None Description of procedure: The patient was seen in the preop holding area the trigger points were marked on the right side of his shoulder. His pain today is mostly in the right shoulder area around the trapezius muscle, supraspinatus and infraspinatus muscles.the patient was brought into the procedure room after signing his procedure consent. He was placed in the sitting position. Skin was prepped with ChloraPrep. I used 025-gauge 1 and 1/2 inch needle to go through the skin at the marked points and injected 1 mL of a solution made up of 4 MLS of ropivacaine 0.5% +40 mg of Kenalog and 1 mL of the solution was injected at each trigger point with a total of 4 trigger points injected. Patient tolerated procedure well.
[2023-08-04 08:13] VITALS: BP 175/106; PULSE 67
== END 2023-08-04 08:13 | disposition home or self-care (01) ==
LOC: ORPAIN 06:12
PROVIDERS: ATTEND Anesthesiology
DX: M79.18 Myalgia, other site (principal); Z79.1 Long term (current) use of non-steroidal anti-inflammatories (NSAID)
CPT/HCPCS: 20553; J3301; J2795

== ENCOUNTER → 2023-08-31 | Outpatient (CLI) | payer OTHER ==
[2023-08-31 13:25] VITALS: BP 155/90; PULSE 72; RESP 16; TEMP 98.1
--- NOTE | 2023-08-31 14:39 | P.PAINPG ---
PQRS Measure Charge Sheet Comment: A 63 yr old male with a history of severe and chronic neck pain x 3 yrs secondary to cervical DDD and spondylosis with facet arthropathy without myelopathy presents today for evaluation s/p R TPIs C2- T1. Pt states he experienced 100 % pain relief x 1 mo s/p procedure. Pain level is provoked at 1 /10 in intensity, constant, localized in the R cervical spine, stinging in character w shooting pain towards BL hands. Pain is provoked by hyperextension. Pain is alleviated with injections, medications, topical, heat, PT x 6 wks which ended 1 mo ago, chiropractic treatments weekly x 6 mo which he is currently in, repositioning and rest. Oswestry axial pain score at 9. Interventional pain procedures completed include R TFESI C6-7 x3, DIMA C6-C7 x1, R TFESI C7-T1 x1 (Dec 2022) Patient is currently on Mobic, Voltaren gel Patient denies any side effects of the medication(s), denies excessive drowsiness or sleepiness, denies suicidal ideation and reports that the current pain medication is helping to control the pain and improve activities of daily living. Patient denies any motor or sensory deficits. Patient denies any fever or night sweats, denies any change in the bowel movements or urination. Physical Examination: -Constitutional: Cooperative. Not in acute distress . - Neurologic: Cranial nerve II to XII intact. No focal neurological deficits. - Psychatric: Alert & oriented x 3. Matching mood & appropriate affect. Judgment and insight intact. - Musculoskeletal: Cervical spine: Muscle bulk/ tone/ strength in the bilateral upper extremities normal Vertebral body tenderness to palpation Spurling test positive Taut bands w twitch response over R C6-T6 Distraction test positive Facet loading test positive TTP Thoracic spine Muscle bulk / tone/ strength in the bilateral paraspinal muscles normal Vertebral body tender to palpation over Facet loading test positive TTP Lumbar spine: Motor bulk/ tone/ strength lower extremities , thigh and legs : 5/5 Deep tendon reflexes : Normal Knee Jerk. Normal Ankle Jerk . Vertebral body tenderness to palpation over Lumbar Facet Loading Test positive Straight Leg Raise: positive at 30 degrees right side/ left side Gaenslen's Test positive Sacral spine : Severe tenderness over the Sacroiliac joint: right side / left side Range of motion: Flexion of the lumbar spine <60 degrees Range of motion: Extension of the lumbar spine <20 degrees Gaenslen's Test positive R / L April test: positive right side / left side Thigh Thrust Test positive R / L Sacral Thrust Test positive R/ L Assessment and plan: Chronic neck pain secondary to cervical DDD, spondylosis with facet arthropathy without myelopathy Will manage residual pain and may RTC on an as needed basis. All questions answered. I have spent less than 30 minutes on patient care today. Dr Beatty was available by phone for the evaluation of this patient. The time was used to review the medical records including relevant urine studies and Prescription history (MAPs), review of the available imaging, evaluation and examination of the patient, coordination of care with the medical staff and if applicable referring physicians, as well as creation of the medical record PQRS Narrative: Smoking Status Never smoker Hx Alcohol Use (MH) No Home Medications: Ambulatory Orders Venlafaxine HCl [Effexor XR] 225 mg PO QAM 06/08/18 clonazePAM [KlonoPIN] 1 mg PO QAM 06/08/18 Meloxicam [Mobic] 15 mg PO QAM 10/26/19 Controlled Substance Measures - Controlled Substance Measures Is patient prescribed a controlled substance at discharge?: No
== END ==
LOC: PNWHC3 08:03
PROVIDERS: ATTEND Specialist
DX: M50.33 Other cervical disc degeneration, cervicothoracic region (principal); M47.812 Spondylosis without myelopathy or radiculopathy, cervical region
CPT/HCPCS: 99211

== ENCOUNTER → 2024-01-06 | Outpatient (CLI) | payer OTHER ==
[2024-01-06 09:20] VITALS: BP 146/88; PULSE 68; RESP 16; TEMP 96.9
--- NOTE | 2024-01-06 13:14 | P.PAINPG ---
PQRS Measure Charge Sheet Comment: A 63 yr old male with a history of severe and chronic neck pain x 3 yrs secondary to radiculopathy, spondylosis with facet arthropathy without myelopathy presents today for evaluation. Pain level is provoked at 6 /10 in intensity, constant, localized in the lower cervical spine, predominantly axial, achy in character w shooting pain towards BL hands. Pain is provoked by hyperextension. Pain is alleviated with injections, medications, topical, heat, chiropractic treatments semi- monthly since Spring 2023 which he is currently in, repositioning and rest. Interventional pain procedures completed include R TFESI C6-7 x3, DIMA C6-C7 x1, R TFESI C7-T1 x1 (Dec 2022), R TPIs C2-T1 x1 Patient is currently on [employer], Voltaren gel Patient denies any side effects of the medication(s), denies excessive drowsiness or sleepiness, denies suicidal ideation and reports that the current pain medication is helping to control the pain and improve activities of daily living. Patient denies any motor or sensory deficits. Patient denies any fever or night sweats, denies any change in the bowel movements or urination. Physical Examination: -Constitutional: Cooperative. Not in acute distress . - Neurologic: Cranial nerve II to XII intact. No focal neurological deficits. - Psychatric: Alert & oriented x 3. Matching mood & appropriate affect. Judgment and insight intact. - Musculoskeletal: Cervical spine: Muscle bulk/ tone/ strength in the bilateral upper extremities normal Vertebral body tenderness to palpation C6 BL Butler test positive C6-C7 Spurling test positive Taut bands w twitch response over R C6-T6 Distraction test positive Facet loading test positive TTP Thoracic spine Muscle bulk / tone/ strength in the bilateral paraspinal muscles normal Vertebral body tender to palpation over Facet loading test positive TTP Lumbar spine: Motor bulk/ tone/ strength lower extremities , thigh and legs : 5/5 Deep tendon reflexes : Normal Knee Jerk. Normal Ankle Jerk . Vertebral body tenderness to palpation over Lumbar Facet Loading Test positive Straight Leg Raise: positive at 30 degrees right side/ left side Gaenslen's Test positive Sacral spine : Severe tenderness over the Sacroiliac joint: right side / left side Range of motion: Flexion of the lumbar spine <60 degrees Range of motion: Extension of the lumbar spine <20 degrees Gaenslen's Test positive R / L April test: positive right side / left side Thigh Thrust Test positive R / L Sacral Thrust Test positive R/ L Assessment and plan: Chronic neck pain secondary to radiculopathy, spondylosis with facet arthropathy without myelopathy Recommendation of DIMA C6-C7. Risks, benefits of procedure discussed and pt verbalized understanding. Protocol for discontinuation/ continuation of medications jeniffer procedure discussed. All questions answered. I have spent less than 30 minutes on patient care today. Dr Beatty was available by phone for the evaluation of this patient. The time was used to review the medical records including relevant urine studies and Prescription history (MAPs), review of the available imaging, evaluation and examination of the patient, coordination of care with the medical staff and if applicable referring physicians, as well as creation of the medical record PQRS Narrative: Smoking Status Never smoker Hx Alcohol Use (MH) No Home Medications: Ambulatory Orders Venlafaxine HCl [Effexor XR] 225 mg PO QAM 06/08/18 clonazePAM [KlonoPIN] 1 mg PO QAM 06/08/18 Meloxicam [Mobic] 15 mg PO QAM 10/26/19 Controlled Substance Measures - Controlled Substance Measures Is patient prescribed a controlled substance at discharge?: No
== END ==
LOC: PNWHC3 07:33
PROVIDERS: ATTEND Specialist
DX: M47.22 Other spondylosis with radiculopathy, cervical region (principal)
CPT/HCPCS: 99211

== ENCOUNTER 2024-01-21 10:00 | Day surgery (SDC) | payer OTHER ==
[2024-01-20 09:17] VITALS: BMI 25.0
[2024-01-21] MEDS ORDERED: LACTATED RINGERS 1,000 ML IV SCH (10:13)
[2024-01-21 10:22] VITALS: RESP 16; TEMP 97
[2024-01-21] MEDS ORDERED: DEXAMETHASONE SOD PHOSPHATE 10 MG/ML 1 ML VIAL ONE (10:49)
[2024-01-21] MEDS ORDERED: IOPAMIDOL M300 15ML VIAL ONE (10:49)
[2024-01-21] MEDS ORDERED: ROPIVACAINE 5MG/ML 20ML VIAL ONE (10:49)
--- NOTE | 2024-01-21 11:03 | P.PCN ---
Description of Procedure: PROCEDURE 1. Injection of radio contrast material into cervical epidural space, cervical epidurogram, interpretation of cervical epidurogram, Cervical epidural steroid injection under fluoroscopic guidance, C6-7 (fluoroscopy images available in the radiology department ) 2. Cervical epidurogram. PREOPERATIVE DIAGNOSIS: 1- Cervical Degenerative Disc Diseases 2- Cervical radiculopathy., 3-cervical spondylosis with cervical Facet arthropathy without myelopathy.4-cervical spinal stenosis POSTOPERATIVE DIAGNOSIS: : 1- Cervical Degenerative Disc Diseases , 2- Cervical radiculopathy. 3-,cervical spondylosis with cervical Facet arthropathy without myelopathy. 4-cervical spinal stenosis ANESTHESIA: Local anesthetics infiltration. In the OR continuous pulse ox, EKG, blood pressure and verbal communication was maintained. EBL : None PROCEDURE INDICATION: The patient with neck pain and radiculitis unresponsive to conservative treatment consents for procedure. Discussed the procedure, alternatives and possible complications which may include increased pain, infection, bleeding, nerve damage, paralysis all of which could be permanent. Patient understands and all questions were answered. PROCEDURE DESCRIPTION : After getting consent patient was taken to the OR , positioned in prone position and time out was completed. A pillow was placed under the patients chest to increase the cervical interlaminar space. The cervical area was prepped and draped in the usual sterile fashion. Using anterior-posterior fluoroscopy, interlaminar space was identified and the skin over this site was marked and then infiltrated with 1% lidocaine subcutaneously. Subsequently, a 20-gauge 3-1/2-inch Tuohy epidural needle was inserted and advanced toward the epidural space with the loss of resistance technique using a syringe filled with preservative-free normal saline and guided by AP and lateral fluoroscopy. Negative CSF, negative blood, negative paresthesia. The correct needle position in the epidural space was verified with the injection of 2 mL of the water soluble contrast dye [id number]-200 and observing an excellent epidurogram with the epidural spread of the dye, after repeat negative aspiration 3 mL solution was injected which consists of 1 mL of preservative-free normal saline mixed with 2 mL of 20 mg dexamethasone and a washout of epidurogram was seen. Needle was withdrawn intact, skin was cleansed, and bandages were applied. Disposition: Patient tolerated the procedure well. No complication. Patient was placed in supine position and transferred to the recovery room area in stable condition and there was no evidence of upper or lower extremity motor or sensory deficit after the procedure patient was discharged from recovery room after discharge criteria met and home discharge instructions was given by the staff and patient will follow with the pain clinic in 2-4 weeks
[2024-01-21 11:45] VITALS: BP 159/88; PULSE 77
--- NOTE | 2024-01-21 12:09 | FL ---
Fluoroscopy History: Pain 12 sec [place] .[id number] dap dose [facility], , 01/21/2024 12:07 PM
== END 2024-01-21 11:35 | disposition home or self-care (01) ==
LOC: ORPAIN 10:00
PROVIDERS: ATTEND Pain Medicine Interventional Pain Medicine
CPT/HCPCS: 62321

== ENCOUNTER → 2024-02-08 | Outpatient (CLI) | payer OTHER ==
[2024-02-08 08:09] VITALS: BP 154/86; PULSE 71; RESP 16; TEMP 96.8
--- NOTE | 2024-02-08 15:44 | P.PAINPG ---
PQRS Measure Charge Sheet Comment: A 63 yr old male with a history of severe and chronic neck pain x 3 yrs secondary to radiculopathy, spondylosis with facet arthropathy without myelopathy presents today for evaluation s/p DIMA C6-C7. Pt states he experienced 100 % pain relief x 1 wks s/p procedure. Pain level is provoked at 6 /10 in intensity, constant, localized in the lower cervical spine, predominantly axial, achy in character w shooting pain towards BL hands. Pain is provoked by hyperextension. Pain is alleviated with injections, medications, topical, heat, chiropractic treatments semi- monthly since Spring 2023 which he is currently in, repositioning and rest. Interventional pain procedures completed include BL RFA L3-L5 (2018), R TFESI C6-7 x3, DIMA C6-C7 x2, R TFESI C7-T1 x1 (Dec 2022), R TPIs C2-T1 x1 Patient is currently on Hany Back & Body, Voltaren gel Patient denies any side effects of the medication(s), denies excessive drowsiness or sleepiness, denies suicidal ideation and reports that the current pain medication is helping to control the pain and improve activities of daily living. Patient denies any motor or sensory deficits. Patient denies any fever or night sweats, denies any change in the bowel movements or urination. Physical Examination: -Constitutional: Cooperative. Not in acute distress . - Neurologic: Cranial nerve II to XII intact. No focal neurological deficits. - Psychatric: Alert & oriented x 3. Matching mood & appropriate affect. Judgment and insight intact. - Musculoskeletal: Cervical spine: Muscle bulk/ tone/ strength in the bilateral upper extremities normal Vertebral body tenderness to palpation C6 BL Butler test positive C6-C7 Spurling test positive Taut bands w twitch response over R C6-T6 Distraction test positive Facet loading test positive TTP BL C4-C5/ C5-C6 Thoracic spine Muscle bulk / tone/ strength in the bilateral paraspinal muscles normal Vertebral body tender to palpation over Facet loading test positive TTP Lumbar spine: Motor bulk/ tone/ strength lower extremities , thigh and legs : 5/5 Deep tendon reflexes : Normal Knee Jerk. Normal Ankle Jerk . Vertebral body tenderness to palpation over Lumbar Facet Loading Test positive Straight Leg Raise: positive at 30 degrees right side/ left side Gaenslen's Test positive Sacral spine : Severe tenderness over the Sacroiliac joint: right side / left side Range of motion: Flexion of the lumbar spine <60 degrees Range of motion: Extension of the lumbar spine <20 degrees Gaenslen's Test positive R / L April test: positive right side / left side Thigh Thrust Test positive R / L Sacral Thrust Test positive R/ L Assessment and plan: Chronic neck pain secondary to radiculopathy, spondylosis with facet arthropathy without myelopathy Recommendation of BL MBB C4-C5/ C5-C6 #1. Risks, benefits of procedure discussed and pt verbalized understanding. Protocol for discontinuation/ continuation of medications jeniffer procedure discussed. Minimal anesthesia including Fentanyl and Versed if clinically indicated. All questions answered. I have spent less than 30 minutes on patient care today. Dr Beatty was azar ilable by phone for the evaluation of this patient. The time was used to review the medical records including relevant urine studies and Prescription history (MAPs), review of the available imaging, evaluation and examination of the patient, coordination of care with the medical staff and if applicable referring physicians, as well as creation of the medical record - Pain Location Bilateral Lower Neck Non-Pharmacological Interventions: Chiropractic Treatment, Heat, Ice, Inactivity, Physical Therapy, Position/Reposition, Sitting Pharmacological Interventions: Block, Epidural, PRN Medication, Topical Medication PQRS Narrative: Smoking Status Never smoker Hx Alcohol Use (MH) No Home Medications: Ambulatory Orders Venlafaxine HCl [Effexor XR] 225 mg PO QAM 06/08/18 clonazePAM [KlonoPIN] 1 mg PO QAM 06/08/18 Aspirin 325 mg PO BID 01/20/24 Controlled Substance Measures - Controlled Substance Measures Is patient prescribed a controlled substance at discharge?: No
== END ==
LOC: PNWHC3 07:37
PROVIDERS: ATTEND Specialist
DX: M47.22 Other spondylosis with radiculopathy, cervical region (principal)
CPT/HCPCS: 99211

== ENCOUNTER 2024-03-17 08:53 | Day surgery (SDC) | payer OTHER ==
[2024-03-17] MEDS: IV FLUID CONTINUATION 1,000 ML IV ONE (09:07)
[2024-03-17 09:14] VITALS: RESP 16; TEMP 98
[2024-03-17] MEDS ORDERED: ROPIVACAINE 5MG/ML 20ML VIAL ONE (09:54)
[2024-03-17] MEDS ORDERED: fentaNYL (PF) 50 MCG/ML 2 ML AMP ONE (09:54)
[2024-03-17] MEDS ORDERED: MIDAZOLAM 2 MG/2 ML VIAL ONE (09:54)
--- NOTE | 2024-03-17 10:13 | P.PCN ---
Date of Procedure: 03/17/24 Procedure(s) Performed: PREOPERATIVE DIAGNOSIS: 1-Cervical Spondylosis with Facet Arthropathy.without myelopathy. 2-cervical degenerative disc disease POSTOPERATIVE DIAGNOSIS:1-cervical spondylosis with facet arthropathy without myelopathy. 2-cervical degenerative disc disease PROCEDURES: Diagnostic bilateral C4 , C5 , C6 medial branch blocks, with fluoroscopic guidance (fluoroscopy images available in radiology department ) ( to target the facet joint at bilateral C4- 5 ,C5-6)#1st ANESTHESIA: moderate sedation with Versed 2 mg , and fentanyl 50 micrograms (sedation start time 09:54, end 10:08 ) EBL: Minimal PROCEDURE INDICATION: The patient with neck pain secondary to cervical arthropathy unresponsive to more conservative treatments. PROCEDURE DESCRIPTION / TECHNIQUE: The patient was seen and identified in the preoperative area. Risks, benefits, complications, and alternatives were discussed with the patient, the patient agreed to proceed with the procedure and signed the consent. IV was started. Vital signs remained stable throughout the procedure. Patient was taken to the OR and time out was completed. The patient was placed in the prone position on the procedure table. A pillow was placed under the patients chest to increase the cervical interlaminar space. The cervical area was prepped and draped in the usual sterile fashion. Critical pause was taken. Vital signs were closely monitored during the procedure. Conscious sedation was used during the procedure to decrease patients anxiety. Using cross-table lateral fluoroscopy, the centroid of the trapezoid of right C4 , C5 , C6, was identified, marked, and localized with 1% lidocaine 1 ml at each level for skin and Sub Q infiltrations . Subsequently, a 22 G 4 spinal needle was advanced guided by fluoroscopy to the centroid of the trapezoid of Right C3, C4 , C5, C6 . [place] tip position was confirmed at the centroid of the trapezoids of Right C4 , C5 ,C6 with anteroposterior fluoroscopy. Subsequently, 1.5 ml of preservative-free Ropivacaine 0.5% used , and half m l was injected at each level after negative aspiration for blood and CSF. [place] was then removed intact the same procedure was repeated at the left C4 , C5 , and C6 levels. COMPLICATIONS: No acute complications. DISPOSITION / PLANS: The patient was placed in a supine position and transferred to the recovery area in a stable condition for observation and was discharged from the recovery room after meeting discharge criteria. Home discharge instructions given to the patient by the staff. The patient was reexamined prior to discharge. The patient will schedule a follow up in the clinic in 2-4 weeks.
[2024-03-17] MEDS ORDERED: LACTATED RINGERS 1,000 ML IV SCH (10:14)
[2024-03-17 10:37] VITALS: BP 141/93; PULSE 74
[2024-03-17] MEDS: IV FLUID CONTINUATION 700 ML IV ONE (10:41)
--- NOTE | 2024-03-17 10:55 | FL ---
EXAMINATION TYPE: FL guided pain mgmt statistic DATE OF EXAM: 03/17/2024 10:20 AM COMPARISON: Pre Operative Images if available both CT/MRI or plain film CLINICAL INDICATION: Male, 63 years old with history of Juan J C/TH Facet; TECHNIQUE: FL guided pain mgmt statistic, multiple fluoroscopic images provided for procedure. Total fluoroscopy time: 36.8 seconds Total submitted images to PACS: 4 DAP: 0.08533 mGym2 Gycm2 uGym2 cGycm2 or equivalent. FINDINGS: Fluoroscopic images during injection for pain management demonstrate multilevel degeneration changes throughout the spine. No evidence for fracture. No acute process identified. IMPRESSION: 1. No evidence for intraoperative complication. 2. Please see the operative/procedural note for further details. [facility], , 03/17/2024 10:53 AM
== END 2024-03-17 10:57 | disposition home or self-care (01) ==
LOC: ORPAIN 08:53
PROVIDERS: ATTEND Specialist
DX: M47.812 Spondylosis without myelopathy or radiculopathy, cervical region (principal)
CPT/HCPCS: 64490; 64491 ×2; J2250; J3010; J2795; 99152

== ENCOUNTER → 2024-04-14 | Outpatient (CLI) | payer OTHER ==
[2024-04-14 08:09] VITALS: BP 118/80; PULSE 74; RESP 16; TEMP 97.5
--- NOTE | 2024-04-14 14:29 | P.PAINPG ---
PQRS Measure Charge Sheet Comment: A 63 yr old male with a history of severe and chronic neck pain x 3 yrs secondary to radiculopathy, spondylosis with facet arthropathy without myelopathy presents today for evaluation s/p BL MBB C4-C5/ C5-C6 #1. Pt states he experienced 100 % pain relief x 8 hrs s/p procedure. Pain level is provoked at 8 /10 in intensity, intermittent, localized in the lower cervical spine, predominantly axial, achy in character without shooting pain. Pain is provoked by hyperextension. Pain is alleviated with injections, medications, topical, heat, chiropractic treatments semi- monthly since Spring 2023 which he is currently in, repositioning and rest. Interventional pain procedures completed include BL RFA L3-L5 (2018), R TFESI C6-7 x3, DIMA C6-C7 x2, R TFESI C7-T1 x1 (Dec 2022), R TPIs C2-T1 x1, BL MBB C4- C6 x1 Patient is currently on Hany Back & Body, Voltaren gel Patient denies any side effects of the medication(s), denies excessive drowsiness or sleepiness, denies suicidal ideation and reports that the current pain medication is helping to control the pain and improve activities of daily living. Patient denies any motor or sensory deficits. Patient denies any fever or night sweats, denies any change in the bowel movements or urination. Physical Examination: -Constitutional: Cooperative. Not in acute distress . - Neurologic: Cranial nerve II to XII intact. No focal neurological deficits. - Psychatric: Alert & oriented x 3. Matching mood & appropriate affect. Judgment and insight intact. - Musculoskeletal: Cervical spine: Muscle bulk/ tone/ strength in the bilateral upper extremities normal Vertebral body tenderness to palpation C6 BL Butler test positive C6-C7 Spurling test positive Taut bands w twitch response over R C6-T6 Distraction test positive Facet loading test positive TTP BL C4-C5/ C5-C6 Thoracic spine Muscle bulk / tone/ strength in the bilateral paraspinal muscles normal Vertebral body tender to palpation over Facet loading test positive TTP Lumbar spine: Motor bulk/ tone/ strength lower extremities , thigh and legs : 5/5 Deep tendon reflexes : Normal Knee Jerk. Normal Ankle Jerk . Vertebral body tenderness to palpation over Lumbar Facet Loading Test positive Straight Leg Raise: positive at 30 degrees right side/ left side Gaenslen's Test positive Sacral spine : Severe tenderness over the Sacroiliac joint: right side / left side Range of motion: Flexion of the lumbar spine <60 degrees Range of motion: Extension of the lumbar spine <20 degrees Gaenslen's Test positive R / L April test: positive right side / left side Thigh Thrust Test positive R / L Sacral Thrust Test positive R/ L Assessment and plan: Chronic neck pain secondary to radiculopathy, spondylosis with facet arthropathy without myelopathy Recommendation of BL MBB C4-C5/ C5-C6 #2. Risks, benefits of procedure discussed and pt verbalized understanding. Protocol for discontinuation/ contin uation of medications jeniffer procedure discussed. Minimal anesthesia including Fentanyl and Versed if clinically indicated. All questions answered. I have spent less than 30 minutes on patient care today. Dr Beatty was available by phone for the evaluation of this patient. The time was used to review the medical records including relevant urine studies and Prescription history (MAPs), review of the available imaging, evaluation and examination of the patient, coordination of care with the medical staff and if applicable referring physicians, as well as creation of the medical record PQRS Narrative: Smoking Status Never smoker Hx Alcohol Use (MH) No Home Medications: Ambulatory Orders Venlafaxine HCl [Effexor XR] 225 mg PO QAM 06/08/18 clonazePAM [KlonoPIN] 1 mg PO QAM 06/08/18 Aspirin 325 mg PO BID 01/20/24 Controlled Substance Measures - Controlled Substance Measures Is patient prescribed a controlled substance at discharge?: No
== END ==
LOC: PNWHC3 07:46
PROVIDERS: ATTEND Specialist
DX: M47.22 Other spondylosis with radiculopathy, cervical region (principal)
CPT/HCPCS: 99211

== ENCOUNTER → 2024-05-25 | Outpatient (CLI) | payer OTHER ==
--- NOTE | 2024-05-26 06:28 | MR ---
EXAMINATION TYPE: MR brain wo/w con DATE OF EXAM: 05/25/2024 COMPARISON: NONE HISTORY: Dizziness and light headed and shakiness. Presyncope. TECHNIQUE: Multiplanar, multisequence images of the brain and brainstem is performed without and with IV contras t, utilizing 8.5 mL intravenous Gadobutrol . FINDINGS: Diffusion weighted images demonstrate no evidence of a recent infarct or other diffusion ab normality. There is mild to moderate ventricular and sulcal prominence. There are multifocal and con fluent areas of T2 hyperintensity seen throughout the white matter bilaterally most prominent at the periventricular levels. The lesions are nonspecific in appearance and distribution. Midline structures demonstrate normal morphology. The craniocervical junction appears within normal limits. Post contrast images demonstrate no abnormal enhancement or enhancing masses. The dural veno us sinuses appear patent. The visualized sinuses are clear and the globes are intact. Patchy fluid si gnal left mastoid air cells is seen. IMPRESSION: 1. There is mild to moderate diffuse cerebral atrophy and moderate to advanced nonspecific white orion er changes favoring product of chronic small vessel ischemic change. 2. Increased fluid signal left mastoid air cells raises concern for left-sided mastoiditis especially given patient's symptoms of dizziness. Correlate clinically. No suspicious enhancement is noted. [facility], , 05/26/2024 6:25 AM
== END | disposition home or self-care (01) ==
LOC: RADMRIMAIN 16:28
PROVIDERS: ATTEND Internal Medicine
DX: R90.82 White matter disease, unspecified (principal); H70.92 Unspecified mastoiditis, left ear; G31.89 Other specified degenerative diseases of nervous system
CPT/HCPCS: 70553; A9585

== ENCOUNTER → 2024-06-02 | Outpatient (CLI) | payer OTHER ==
[2024-06-02 08:11] VITALS: BP 139/84; PULSE 86; RESP 16; TEMP 97.8
--- NOTE | 2024-06-02 13:45 | P.PAINPG ---
PQRS Measure Charge Sheet Comment: A 63 yr old male with a history of severe and chronic neck pain x 3 yrs secondary to radiculopathy, spondylosis with facet arthropathy without myelopathy presents today for evaluation s/p BL MBB C4-C5/ C5-C6 #2. Pt states he experienced 100 % pain relief x 8 hrs s/p procedure. Pain level is provoked at 8 /10 in intensity, intermittent, localized in the lower cervical spine, predominantly axial, achy in character without shooting pain. Pain is provoked by hyperextension. Pain is alleviated with injections, medications, topical, heat, chiropractic treatments semi- monthly since Spring 2023 which he is currently in, repositioning and rest. Interventional pain procedures completed include BL RFA L3-L5 (2018), R TFESI C6-7 x3, DIMA C6-C7 x2, R TFESI C7-T1 x1 (Dec 2022), R TPIs C2-T1 x1, BL MBB C4- C6 x2 Patient is currently on Hany Back & Body, Voltaren gel Patient denies any side effects of the medication(s), denies excessive drowsiness or sleepiness, denies suicidal ideation and reports that the current pain medication is helping to control the pain and improve activities of daily living. Patient denies any motor or sensory deficits. Patient denies any fever or night sweats, denies any change in the bowel movements or urination. Physical Examination: -Constitutional: Cooperative. Not in acute distress . - Neurologic: Cranial nerve II to XII intact. No focal neurological deficits. - Psychatric: Alert & oriented x 3. Matching mood & appropriate affect. Judgment and insight intact. - Musculoskeletal: Cervical spine: Muscle bulk/ tone/ strength in the bilateral upper extremities normal Vertebral body tenderness to palpation C6 BL Butler test positive C6-C7 Spurling test positive Taut bands w twitch response over R C6-T6 Distraction test positive Facet loading test positive TTP BL C4-C5/ C5-C6 Thoracic spine Muscle bulk / tone/ strength in the bilateral paraspinal muscles normal Vertebral body tender to palpation over Facet loading test positive TTP Lumbar spine: Motor bulk/ tone/ strength lower extremities , thigh and legs : 5/5 Deep tendon reflexes : Normal Knee Jerk. Normal Ankle Jerk . Vertebral body tenderness to palpation over Lumbar Facet Loading Test positive Straight Leg Raise: positive at 30 degrees right side/ left side Gaenslen's Test positive Sacral spine : Severe tenderness over the Sacroiliac joint: right side / left side Range of motion: Flexion of the lumbar spine <60 degrees Range of motion: Extension of the lumbar spine <20 degrees Gaenslen's Test positive R / L April test: positive right side / left side Thigh Thrust Test positive R / L Sacral Thrust Test positive R/ L Assessment and plan: Chronic neck pain secondary to radiculopathy, spondylosis with facet arthropathy without myelopathy Recommendation of BL RFA C4-C5/ C5-C6. Risks, benefits of procedure discussed and pt verbalized understanding. Protocol for discontinuation/ continuation of medications jeniffer procedure discussed. Minimal anesthesia including Fentanyl and Versed if clinically indicated. All questions answered. I have spent less than 30 minutes on patient care today. Dr Beatty was available by phone for the evaluation of this patient. The time was used to review the medical records including relevant urine studies and Prescription history (MAPs), review of the available imaging, evaluation and examination of the patient, coordination of care with the medical staff and if applicable referring physicians, as well as creation of the medical record PQRS Narrative: Smoking Status Never smoker Hx Alcohol Use (MH) No Home Medications: Ambulatory Orders Venlafaxine HCl [Effexor XR] 225 mg PO QAM 06/08/18 clonazePAM [KlonoPIN] 1 mg PO QAM 06/08/18 Aspirin 325 mg PO BID 01/20/24 Losartan [Cozaar] 25 mg PO DAILY 05/17/24 Controlled Substance Measures - Controlled Substance Measures Is patient prescribed a controlled substance at discharge?: No
== END ==
LOC: PNWHC3 07:46
PROVIDERS: ATTEND Specialist
DX: M47.22 Other spondylosis with radiculopathy, cervical region (principal); G89.29 Other chronic pain
CPT/HCPCS: 99211

== ENCOUNTER 2024-06-16 07:14 | Day surgery (SDC) | payer OTHER ==
[2024-06-16] MEDS ORDERED: LACTATED RINGERS 1,000 ML IV SCH (07:34)
[2024-06-16 07:41] VITALS: RESP 16; TEMP 97.3
[2024-06-16] MEDS: LACTATED RINGERS 1,000 ML IV ONE (07:47)
[2024-06-16] MEDS ORDERED: ROPIVACAINE 5MG/ML 20ML VIAL ONE (08:35)
[2024-06-16] MEDS ORDERED: fentaNYL (PF) 50 MCG/ML 2 ML AMP ONE (08:35)
[2024-06-16] MEDS ORDERED: MIDAZOLAM 2 MG/2 ML VIAL ONE (08:35)
[2024-06-16] MEDS: IV FLUID CONTINUATION 1,000 ML IV ONE (09:06)
--- NOTE | 2024-06-16 09:07 | P.PCN ---
Description of Procedure: Preprocedure diagnosis. Cervical spondylosis. Cervical facet joint arthropathy. Postprocedure diagnosis. As above. Procedure done. Right C4-5, C5-6 facet joint (C4.5,6 medial branch of dorsal ramus ) radiofrequency ablation under fluoroscopic guidance. Anesthesia. IV sedation with versed 2mg and fentanyl 100 microgram. Continuous pulse ox, EKG, blood pressure and verbal communication was maintained with the patient in OR. Sedation time-start [id number] ,[id number] . Blood loss. None. Indication. Patient has got the diagnoses of cervical spondylolysis, facet joint arthropathy with neck pain. Diagnostic medial branch block relieved significant pain. Discussed with the patient procedure, alternatives, complications including infection, bleeding, nerve damage, paralysis all of which could be permanent. Patient understands and all questions are answered. Procedure note. After getting consent patient in OR in prone position. Back of the neck was prepped with chlorhexidine and draped in sterile fashion. After injecting 5 mL of plain 1% lidocaine subcutaneously, a 18-gauge RFA needle was introduced under tunnel vision of the fluoroscope AP view at the waist of the articular pillar (lateral mass) at C4 vertebral level. In the lateral view of the fluoroscope it was confirmed that the tip of the needle stayed within the dorsal half of the articular pillar (lateral mass). C4-5 facet joint was targeted by blocking C4 and C5 medial branch, C5-6 facet joint was targeted by blocking C5 and C6 medial branch . After subcutaneous injection of lidocaine, RFA needle were introduced under tunnel vision of the fluoroscope AP view at the waist of the articular pillars (lateral mass) at C5 vertebral level. In the lateral view of the fluoroscope it was confirmed that the tip of the needle stayed within the dorsal half of the articular pillar (lateral mass). After subcutaneous injection of lidocaine, RFA needle were introduced under tunnel vision of the fluoroscope AP view at the waist of the articular pillars (lateral mass) at C6 vertebral level. In the lateral view of the fluoroscope it was confirmed that the tip of the needle stayed within the dorsal half of the articular pillar (lateral mass). . After positive sensory and negative motor stimulation,injection of 1 ml of 0.5% Ropivacaine, radiofrequency ablation was done at 80 C's for 90 seconds. Second lesion was done at the same settings after rotating the needls 180 degrees. After the procedure needle was taken out and bandage was applied. Disposition. Patient tolerated the procedure well. No complication. Discharged home in stable condition.
[2024-06-16 09:24] VITALS: BP 115/82; PULSE 77
--- NOTE | 2024-06-16 09:37 | FL ---
EXAMINATION TYPE: FL guided pain mgmt statistic DATE OF EXAM: 06/16/2024 CLINICAL HISTORY: Low back pain. TECHNIQUE: Fluoroscopy. COMPARISON: None. FINDINGS: Fluoroscopic guidance was provided during pain relief procedure performed by Dr. Beatty . A total of 32 seconds of fluoroscopic time was utilized during the procedure and two spot images a re acquired. Images acquired shows needle localization . IMPRESSION: As Above. [facility], , 06/16/2024 9:34 AM
== END 2024-06-16 09:58 | disposition home or self-care (01) ==
LOC: ORPAIN 07:14
PROVIDERS: ATTEND Pain Medicine Interventional Pain Medicine
DX: M47.812 Spondylosis without myelopathy or radiculopathy, cervical region (principal)
CPT/HCPCS: 64633; 64634; 99152; 99153; J2250; J3010; J2795

== ENCOUNTER → 2024-09-05 | Outpatient (CLI) | payer OTHER ==
--- NOTE | 2024-09-05 11:14 | XR ---
EXAMINATION TYPE: XR hand complete bilateral DATE OF EXAM: 09/05/2024 10:51 AM INDICATION: Patient age:Male; 64 years old; Reason for study: M79.89 OTHER SPECIFIED SOFT TISSUE DISORDERS; PHH. pain COMPARISON: None TECHNIQUE: Frontal, lateral and oblique views of both hands were obtained. FINDINGS: Normal alignment of the visualized joints. No joint space narrowing or marginal osteophytos is. No acute osseous pathology is identified. No osseous erosions. Cyst identified within the right third middle phalanx proximally. No evidence of soft tissue swelling. IMPRESSION: No acute osseous pathology. [facility], , 09/05/2024 11:12 AM
== END | disposition home or self-care (01) ==
LOC: RADXRMAIN 10:19
DX: Z13.828 Encounter for screening for other musculoskeletal disorder (principal); M79.89 Other specified soft tissue disorders; F41.1 Generalized anxiety disorder; F41.0 Panic disorder [episodic paroxysmal anxiety]; I10 Essential (primary) hypertension

== ENCOUNTER → 2024-09-09 | Outpatient (CLI) | payer OTHER ==
[2024-09-09 19:21] LABS: Blood Urea Nitrogen 12.2 mg/dL (9.0-27.0); C Reactive Protein <0.30 mg/dL (0.00-0.80); Calcium 9.5 mg/dL (8.7-10.3); Carbon Dioxide 25.6 mmol/L (21.6-31.8); Chloride 105 mmol/L (96-109); Glucose 87 mg/dL (70-110); Potassium 4.6 mmol/L (3.5-5.5); Rheumatoid Factor, Qnt <15 IU/mL (0-15); Sodium 140 mmol/L (135-145)
[2024-09-10 00:22] LABS: Cyclic Citrull Pep IgG Unit <1.5 U/mL (<=3.9); Cyclic Citrullinated Pep IgG Negative
== END | disposition home or self-care (01) ==
LOC: LABWHC1 13:15
DX: Z13.828 Encounter for screening for other musculoskeletal disorder (principal); I10 Essential (primary) hypertension; F41.0 Panic disorder [episodic paroxysmal anxiety]; F41.1 Generalized anxiety disorder; M79.89 Other specified soft tissue disorders
CPT/HCPCS: 36415; 80048; 86038; 86140; 86200; 86431